=== PATIENT | male | born 1970 | race Caucasian/White ===

== ENCOUNTER 2022-08-25 16:26 | Inpatient (IN) ==
[2022-08-25] MEDS ORDERED: SODIUM CHLORIDE 0.9% 1000ML 1,000 ML IV ONE ×2 (16:33→20:52)
--- NOTE | 2022-08-25 16:36 | Emergency Department Note ---
Impression & Plan Hydronephrosis with ureteral calculus, Anemia, Right wrist sprain, Contracture, left shoulder, Syncope, Hypomagnesemia ED Provider Note NAME: BRUNA QUINONES AGE: 52 SEX: M : 1970 ARRIVES VIA: Ambulance INFORMANT: Patient, EMS ED PROVIDER(S): Raghavendra Joyce DO CHIEF COMPLAINT: Syncope HPI: The patient is a 52-year-old male who has a history of melanoma who presented to the emergency department for an evaluation of syncope. The patient states when he awoke this morning he was dizzy when he went to stand up he felt as though he might pass out. He did have 1 syncopal episode. He started to feel little bit better and when he got back up again he had another syncopal episode. The patient states he injured his left shoulder as well as his right wrist. He denies having any back pain. He has had no abdominal pain or chest pain. He denies having any difficulty breathing at this time. He was also noted to have a low-grade fever. He was treated with IV fluids by the prehospital personnel prior to arrival. The patient does not have any other recent traumas. He states has been compliant with his outpatient medications. He denies having any headache. He does take oral anticoagulation. The patient states the pain is wrist and shoulder worsening with any movement his arms or legs. ROS: See above HPI for pertinent positives & negatives. A total of 10 systems reviewed and were otherwise negative. PAST MEDICAL HISTORY: See Below PAST SURGICAL HISTORY: See Below FAMILY HISTORY: See Below SOCIAL HISTORY: See Below HOME MEDICATIONS: See Below ALLERGIES: See Below VITALS: See Below PHYSICAL EXAMINATION: GENERAL: Patient is awake alert in no acute distress patient is resting comfortably and showing no signs of anxiety EYES: The conjunctivae are clear. The pupils are round and reactive. EARS, NOSE, MOUTH AND THROAT: The nose is without any evidence of any deformity. Mucous membranes are moist. Tongue is midline. NECK: The neck is nontender and supple. RESPIRATORY: Normal respiratory effort is noted there is no evidence of wheezing rhonchi or rales CARDIOVASCULAR: Regular rate and rhythm noted there no murmurs rubs or gallops normal S1 normal S2. GASTROINTESTINAL: Soft and mildly distended. Specific tenderness guarding rigidity. BACK: No midline tenderness or or step-off noted range of motion in flexion extension as well as rotation no signs of muscle spasm noted MUSCULOSKELETAL/EXTREMITIES: The patient has swelling and pain with range of motion of the right wrist. There is tenderness over the dorsum of the right wrist. There is also pain with palpation over the left distal clavicle. Left shoulder left elbow and left wrist appear to be unaffected and have normal range of motion. SKIN: Pedal edema was noted bilaterally. NEUROLOGIC: Patient is awake alert and oriented x3 strength is symmetric patellar reflexes are 2+ bilaterally MEDICAL DECISION MAKING: Patient is a 52-year-old male who presented to the emergency department after having multiple syncopal episodes. The patient did not have any definite source of infection. He was found to have anemia compared to his baseline. He had vague abdominal pain but no surgical abdomen was noted on physical exam. CT of the abdomen and pelvis was also obtained. This did not appear to be consistent with a surgical abdomen but did show an obstructing ureteral calculus. I feel this does not completely explain the patient's symptoms. Given the fever and the ureteral calculus as well as the recent procedure the patient had he was treated with IV fluids and IV antibiotics. He was also treated with IV magnesium replacement. The patient states has had no black or bloody bowel moods. He was recently seen by an certified respiratory therapist. The patient had an upper and lower endoscopy but no source for his bleeding could be found. This is likely the patient's source of anemia. The patient was treated with IV fluids and on reevaluation still has significant near syncope upon standing. For this reason I discussed his case with the on-call [facility] hospitalist. They have agreed to evaluate the patient in the emergency department for further management and disposition. Triage Nursing notes reviewed. Prior medical records reviewed Vital Signs: reviewed and remarkable for tachycardia and orthostatic hypotension. Differential diagnosis: Vasovagal event, dehydration, infection, hypoglycemia, electrolyte abnormalities, cardiac sources, intracerebral event, pulmonary embolism, seizure, toxicologic, neurologic, as well as other pathologies. ER treatment provided: See below Diagnostics interpreted by me: ECG: EKG was obtained in the emergency department. My interpretation is sinus tachycardia 126 bpm. There is no ectopy. There is no acute ST segment abnormalities noted. This was compared to a tracing from June 27, 2022. There is an increase in the rate otherwise no changes were noted. Cardiac Monitoring: An order was placed for continuous cardiac monitoring. The monitor shows a rate of 111 bpm with sinus tachycardia. Laboratory studies: As stated above and show below. Imaging studies: See below Consultation(s): I discussed this case with Dr Baird Past Med/Surg History Medical History Hypertension Melanoma Surgical History Hx of knee surgery Family History Other Family history non-contributory Social History Smoking Status: Never smoker Preferred Language: Upper Sorbian Feels Safe at Home: Yes Allergies Allergies Allergy/AdvReac Type Severity Reaction Status Date / Time No Known Allergies Allergy Unverified 04/30/21 21:58 Home Meds Home Medications Medication Instructions Recorded Confirmed Keytruda 0 mg IV .[id number] 04/30/21 04/30/21 amlodipine 2.5 mg-benazepril 10 mg 1 cap PO DAILY 04/30/21 04/30/21 capsule Results & Data (ED) Vital Signs Vital Signs - 24 hr 08/25/22 16:32 08/25/22 16:44 08/25/22 16:44 Temperature 37.7 C H 37.7 C H Temperature Source Oral Oral Pulse Rate 126 H Pulse Rate [Right Finger] 124 H Pulse Rhythm [Right Finger] Respiratory Rate 16 16 Respiratory Effort / Characteristics Respiratory Depth Blood Pressure 175/117 H Blood Pressure [Right Arm] 175/117 H Blood Pressure Mean 136 Blood Pressure Mean [Right Arm] 136 Pulse Oximetry 98 97 97 Oxygen Delivery Method Room Air Room Air Room Air Sepsis Recent Fever Within 48 Hours Yes Sepsis New/Unexplained Change in Mental Status Yes Sepsis Action Taken by Nursing Physician Notified Pulse Oximetry Post Tiitration 08/25/22 16:44 08/25/22 16:54 08/25/22 17:13 Temperature Temperature Source Pulse Rate Pulse Rate [Right Finger] 120 H 122 H Pulse Rhythm [Right Finger] Regular Respiratory Rate Respiratory Effort / Characteristics Respiratory Depth Blood Pressure Blood Pressure [Right Arm] 175/117 H Blood Pressure Mean Blood Pressure Mean [Right Arm] 136 Pulse Oximetry 97 97 Oxygen Delivery Method Room Air Room Air Room Air Sepsis Recent Fever Within 48 Hours Sepsis New/Unexplained Change in Mental Status Sepsis Action Taken by Nursing Pulse Oximetry Post Tiitration 97 08/25/22 17:28 08/25/22 18:47 08/25/22 19:24 Temperature Temperature Source Pulse Rate Pulse Rate [Right Finger] 119 H 122 H 111 H Pulse Rhythm [Right Finger] Regular Respiratory Rate 20 18 16 Respiratory Effort / Characteristics Non-Labored Respiratory Depth Normal Blood Pressure Blood Pressure [Right Arm] 158/94 H 156/84 H Blood Pressure Mean Blood Pressure Mean [Right Arm] 115 108 Pulse Oximetry 98 98 96 Oxygen Delivery Method Room Air Room Air Room Air Sepsis Recent Fever Within 48 Hours Sepsis New/Unexplained Change in Mental Status Sepsis Action Taken by Nursing Pulse Oximetry Post Tiitration 08/25/22 20:07 Temperature Temperature Source Pulse Rate Pulse Rate [Right Finger] 111 H Pulse Rhythm [Right Finger] Respiratory Rate 18 Respiratory Effort / Characteristics Respiratory Depth Blood Pressure Blood Pressure [Right Arm] 137/89 Blood Pressure Mean Blood Pressure Mean [Right Arm] 105 Pulse Oximetry 95 Oxygen Delivery Method Room Air Sepsis Recent Fever Within 48 Hours Sepsis New/Unexplained Change in Mental Status Sepsis Action Taken by Nursing Pulse Oximetry Post Tiitration Home Medications Current Medication List: was personally reviewed by me Laboratory Data Attestation: I reviewed the patient's lab results. Result diagrams: 08/25/22 16:35 08/25/22 16:35 Lab Results 08/25/22 08/25/22 08/25/22 Range/Units 16:35 16:35 16:35 WBC 11.30 H (4.8-10.8) K/ul RBC 3.44 L (4.63-6.08) M/uL Hgb 10.7 L (14.0-18.0) g/dl Hct 32.3 L (40.1-51.0) % MCV 93.9 (80.0-100.0) fL MCH 31.1 (25.0-34.0) pg MCHC 33.1 (32.0-36.0) g/dL RDW Std Deviation 46.8 H (36.4-46.3) fL RDW Coeff of Hieu 13.7 (11.5-14.5) % Plt Count 274 (130-400) K/uL MPV 10.5 (9.4-12.4) fL Immature Gran % (Auto) 0.4 % Neut % (Auto) 84.8 % Lymph % (Auto) 7.3 % [place] % (Auto) 6.9 % Eos % (Auto) 0.3 % Baso % (Auto) 0.3 % Neut # (Auto) 9.59 H (1.4-6.5) K/uL Lymph # (Auto) 0.82 L (1.2-3.4) K/uL [place] # (Auto) 0.78 (0.24-0.82) K/uL Eos # (Auto) 0.03 (0-0.50) K/uL Baso # (Auto) 0.03 (0-0.2) K/uL Immature Gran # (Auto) 0.05 H (0.00-0.02) K/uL PT 10.9 (9.0-12.0) Seconds INR 1.0 (0.9-1.1) APTT 26.1 (21.0-31.0) Seconds PTT Ratio 0.9 VBG pH (7.36-7.41) VBG pCO2 (38-50) mmHg VBG pO2 mmHg VBG HCO3 mmol/L VBG O2 Saturation % VBG Base Excess mEq/L Sodium 136 (136-145) mmol/L Potassium 3.8 (3.5-5.1) mmol/L Chloride 106 (98-107) mmol/L Carbon Dioxide 20 L (21-32) mmol/L Anion Gap 10 (3-11) BUN 12 (6-23) mg/dl Creatinine 1.40 (0.6-1.4) mg/dl Est Cr Clr Drug Dosing 85.3 ml/min Est GFR ( Amer) 66.0 ml/min Est GFR (Non-Af Amer) 57.0 ml/min BUN/Creatinine Ratio 8.6 L (10-20) Glucose 111 H (70-99(Fasting)) mg/dl Lactate (0.4-2.0) mmol/L Calcium 8.5 (8.5-10.1) mg/dl Magnesium 1.4 L (1.7-2.4) mg/dl Total Bilirubin 0.7 (0.2-1.0) mg/dl Direct Bilirubin 0.2 (0-0.2) mg/dl AST 13 (13-39) U/L ALT 10 (7-52) U/L Alkaline Phosphatase 72 (34-104) U/L Troponin I High Sens 7.1 (0-20) pg/ml Total Protein 7.3 (6.0-8.3) gm/dl Albumin 3.3 L (3.4-5.0) gm/dl Procalcitonin (0-0.5) ng/ml Urine Color Urine Appearance (Clear) Urine pH (4.5-7.5) Ur Specific [place] (1.000-1.030) Urine Protein (Negative) Urine Glucose (UA) (Negative) Urine Ketones (Negative) Urine Blood (Negative) Urine Nitrite (Negative) Urine Bilirubin (Negative) Urine Urobilinogen (Negative) Ur Leukocyte Esterase (Negative) Urine WBC (Auto) (0-5) /hpf Urine RBC (Auto) (0-4) /hpf U Hyaline Cast (Auto) (0-5) /lpf U Epithel Cells (Auto) (0-5) /lpf Urine Bacteria (Auto) (Negative) SARS-CoV-2, RNA, NAAT (NEGATIVE) 08/25/22 08/25/22 08/25/22 Range/Units 16:35 16:35 16:35 WBC (4.8-10.8) K/ul RBC (4.63-6.08) M/uL Hgb (14.0-18.0) g/dl Hct (40.1-51.0) % MCV (80.0-100.0) fL MCH (25.0-34.0) pg MCHC (32.0-36.0) g/dL RDW Std Deviation (36.4-46.3) fL RDW Coeff of Hieu (11.5-14.5) % Plt Count (130-400) K/uL MPV (9.4-12.4) fL Immature Gran % (Auto) % Neut % (Auto) % Lymph % (Auto) % [place] % (Auto) % Eos % (Auto) % Baso % (Auto) % Neut # (Auto) (1.4-6.5) K/uL Lymph # (Auto) (1.2-3.4) K/uL [place] # (Auto) (0.24-0.82) K/uL Eos # (Auto) (0-0.50) K/uL Baso # (Auto) (0-0.2) K/uL Immature Gran # (Auto) (0.00-0.02) K/uL PT (9.0-12.0) Seconds INR (0.9-1.1) APTT (21.0-31.0) Seconds PTT Ratio VBG pH (7.36-7.41) VBG pCO2 (38-50) mmHg VBG pO2 mmHg VBG HCO3 mmol/L VBG O2 Saturation % VBG Base Excess mEq/L Sodium (136-145) mmol/L Potassium (3.5-5.1) mmol/L Chloride (98-107) mmol/L Carbon Dioxide (21-32) mmol/L Anion Gap (3-11) BUN (6-23) mg/dl Creatinine (0.6-1.4) mg/dl Est Cr Clr Drug Dosing ml/min Est GFR ( Amer) ml/min Est GFR (Non-Af Amer) ml/min BUN/Creatinine Ratio (10-20) Glucose (70-99(Fasting)) mg/dl Lactate 1.6 (0.4-2.0) mmol/L Calcium (8.5-10.1) mg/dl Magnesium (1.7-2.4) mg/dl Total Bilirubin (0.2-1.0) mg/dl Direct Bilirubin (0-0.2) mg/dl AST (13-39) U/L ALT (7-52) U/L Alkaline Phosphatase (34-104) U/L Troponin I High Sens (0-20) pg/ml Total Protein (6.0-8.3) gm/dl Albumin (3.4-5.0) gm/dl Procalcitonin < 0.05 (0-0.5) ng/ml Urine Color Urine Appearance (Clear) Urine pH (4.5-7.5) Ur Specific [place] (1.000-1.030) Urine Protein (Negative) Urine Glucose (UA) (Negative) Urine Ketones (Negative) Urine Blood (Negative) Urine Nitrite (Negative) Urine Bilirubin (Negative) Urine Urobilinogen (Negative) Ur Leukocyte Esterase (Negative) Urine WBC (Auto) (0-5) /hpf Urine RBC (Auto) (0-4) /hpf U Hyaline Cast (Auto) (0-5) /lpf U Epithel Cells (Auto) (0-5) /lpf Urine Bacteria (Auto) (Negative) SARS-CoV-2, RNA, NAAT NEGATIVE (NEGATIVE) 08/25/22 08/25/22 Range/Units 17:52 19:10 WBC (4.8-10.8) K/ul RBC (4.63-6.08) M/uL Hgb (14.0-18.0) g/dl Hct (40.1-51.0) % MCV (80.0-100.0) fL MCH (25.0-34.0) pg MCHC (32.0-36.0) g/dL RDW Std Deviation (36.4-46.3) fL RDW Coeff of Hieu (11.5-14.5) % Plt Count (130-400) K/uL MPV (9.4-12.4) fL Immature Gran % (Auto) % Neut % (Auto) % Lymph % (Auto) % [place] % (Auto) % Eos % (Auto) % Baso % (Auto) % Neut # (Auto) (1.4-6.5) K/uL Lymph # (Auto) (1.2-3.4) K/uL [place] # (Auto) (0.24-0.82) K/uL Eos # (Auto) (0-0.50) K/uL Baso # (Auto) (0-0.2) K/uL Immature Gran # (Auto) (0.00-0.02) K/uL PT (9.0-12.0) Seconds INR (0.9-1.1) APTT (21.0-31.0) Seconds PTT Ratio VBG pH 7.44 H (7.36-7.41) VBG pCO2 35 L (38-50) mmHg VBG pO2 33 mmHg VBG HCO3 24 mmol/L VBG O2 Saturation < 60.0 % VBG Base Excess 0.1 mEq/L Sodium (136-145) mmol/L Potassium (3.5-5.1) mmol/L Chloride (98-107) mmol/L Carbon Dioxide (21-32) mmol/L Anion Gap (3-11) BUN (6-23) mg/dl Creatinine (0.6-1.4) mg/dl Est Cr Clr Drug Dosing ml/min Est GFR ( Amer) ml/min Est GFR (Non-Af Amer) ml/min BUN/Creatinine Ratio (10-20) Glucose (70-99(Fasting)) mg/dl Lactate (0.4-2.0) mmol/L Calcium (8.5-10.1) mg/dl Magnesium (1.7-2.4) mg/dl Total Bilirubin (0.2-1.0) mg/dl Direct Bilirubin (0-0.2) mg/dl AST (13-39) U/L ALT (7-52) U/L Alkaline Phosphatase (34-104) U/L Troponin I High Sens (0-20) pg/ml Total Protein (6.0-8.3) gm/dl Albumin (3.4-5.0) gm/dl Procalcitonin (0-0.5) ng/ml Urine Color Yellow Urine Appearance Clear (Clear) Urine pH 6.0 (4.5-7.5) Ur Specific [place] 1.011 (1.000-1.030) Urine Protein Negative (Negative) Urine Glucose (UA) Negative (Negative) Urine Ketones Trace H (Negative) Urine Blood 3+ H (Negative) Urine Nitrite Negative (Negative) Urine Bilirubin Negative (Negative) Urine Urobilinogen Negative (Negative) Ur Leukocyte Esterase Negative (Negative) Urine WBC (Auto) 1-5 (0-5) /hpf Urine RBC (Auto) >30 H (0-4) /hpf U Hyaline Cast (Auto) 1-5 (0-5) /lpf U Epithel Cells (Auto) 5-10 H (0-5) /lpf Urine Bacteria (Auto) Negative (Negative) SARS-CoV-2, RNA, NAAT (NEGATIVE) Administered Medications Discontinued Medications Acetaminophen (Acetaminophen 500 Mg Tab) 1,000 mg PO NOW STA Stop: 08/25/22 17:20 Last Admin: 08/25/22 17:23 Dose: 1,000 mg Documented By: MES Sodium Chloride (Nss 1000ml) 1,000 mls @ 999 mls/hr IV .Q1H1M ONE Stop: 08/25/22 17:33 Last Infusion: 08/25/22 18:07 Dose: 0 mls/hr Documented By: Admin: 08/25/22 16:47 Dose: 999 mls/hr Documented By: MES Magnesium Sulfate/Dextrose (Magnesium Sulfate / D5w) 1 gm in 100 mls @ 100 mls/hr IV Q1H JESSICA Stop: 08/25/22 19:18 Last Infusion: 08/25/22 20:28 Dose: 0 mls/hr Documented By: Admin: 08/25/22 19:22 Dose: 100 mls/hr Documented By: Infusion: 08/25/22 19:22 Dose: 0 mls/hr Documented By: Admin: 08/25/22 18:19 Dose: 100 mls/hr Documented By: DARIELA Imaging Data Radiologist's Impression: Abdomen/Pelvis CT 08/25/22 16:33 CT abd pelvis wo con CLINICAL HISTORY: fall, right-sided pain TECHNIQUE: Helical axial images of the abdomen and pelvis were obtained. Automated dose lowering techniques and/or adjustment according to patient size were utilized for this exam. This exam was performed without intravenous contrast. CT DOSE: 3458.00 mGy.cm COMPARISON: Comparison is made to CT abdomen pelvis 06/27/2022 FINDINGS: Lower chest: Bibasilar atelectasis versus scarring is seen. Liver: Unremarkable. No focal lesions are seen. Gallbladder and biliary tree: No calcified gallstones. Normal caliber wall. No intra- or extrahepatic biliary ductal dilation. Pancreas: Unremarkable, no focal lesions. Spleen: Unremarkable. Adrenals: A lipid rich adenoma is seen on the right. Kidneys and ureters: Perinephric stranding is noted bilaterally. There is a stone in the right proximal ureter measuring 4 mm. There is minimal hydrone phrosis and hydroureter. Bladder: Unremarkable. Reproductive organs: Unremarkable. Bowel: Unremarkable appearance of the bowel. The appendix is normal. Lymph nodes Retroperitoneal: Unremarkable. Pelvic: Unremarkable. Mesenteric: Unremarkable. Peritoneum: Normal. Vessels: Atherosclerotic calcifications are seen. Abdominal wall: Redemonstration of a soft tissue nodule in the left buttock, unchanged. Bones: Degenerative changes in the visualized spine. IMPRESSION: 1. No acute traumatic abnormalities. No acute fractures. 2. Right obstructive stone in the proximal ureter. 3. Unchanged appearance of left buttock soft tissue nodule. ACT 112: Negative or not required by law. Electronically signed by: Ilan Gray M.D. 08/25/2022 6:[address] 08/25/22 16:33 CT cervical spine wo con CLINICAL HISTORY: fall TECHNIQUE: Multidetector row helical CT of the cervical spine was performed without administration of intravenous contrast. Coronal and sagittal re formations were obtained. Automated dose lowering techniques and/or adjustment according to patient size were utilized for this exam. Comparison: None available at the time of this dictation. FINDINGS: No acute fractures or subluxations are identified. Degenerative changes are seen in the visualized spine. The alignment is normal. Soft tissues are unremarkable. IMPRESSION: No evidence of acute bony injury. ACT 112: Negative or not required by law. Electronically signed by: Ilan Gray M.D. 08/25/2022 6:40 PM Chest X-Ray 08/25/22 16:33 XR chest 1V portable CLINICAL HISTORY: Sepsis TECHNIQUE: Single frontal radiograph of the chest was obtained. Comparison: Comparison is made to chest radiograph 06/06/2018 FINDINGS: No lines and tubes are seen. Cardiomegaly is noted. The lungs are clear. No evidence of pleural effusion or pneumothorax. IMPRESSION: No acute abnormalities and in particular no evidence of pneumonia. ACT 112: Negative or not required by law. Electronically signed by: Ilan Gray M.D. 08/25/2022 5:[address] 08/25/22 16:33 CT head/brain wo con CLINICAL HISTORY: fall Technique: Contiguous axial CT images of the head were acquired from the base of the skull to the vertex without intravenous contrast administration. Images were viewed in brain, subdural and bone windows. Automated dose lowering techniques and/or adjustment according to patient size were utilized for this exam. Comparison: None available at the time of this dictation. Findings: The ventricles, basal cisterns, and cerebral sulci are normal. There is no acute intracranial hemorrhage or evidence of acute territorial infarction. Neither mass effect, shift of the midline structures, nor abnormal extra-axial fluid collections are shown. Imaged portions of the paranasal sinuses and mastoid air cells are clear. The orbits appear normal. There are no acute fractures of the calvaria or scalp swelling. Impression: No acute intracranial hemorrhage, no evidence of acute territorial infarction or other acute intracranial disease process. ACT 112: Negative or not required by law. Electronically signed by: Ilan Gray M.D. 08/25/2022 7:14 PM Shoulder X-Ray 08/25/22 16:33 XR shoulder LT min 2V routine CLINICAL HISTORY: fall TECHNIQUE: 3 views of the left shoulder were obtained. Comparison: None available at the time of this dictation. FINDINGS: There is no evidence of an acute fracture. Joint spaces are well-preserved. The overlying soft tissues are unremarkable. Left axillary clips are seen. IMPRESSION: No evidence of acute osseous injury. ACT 112: Negative or not required by law. Electronically signed by: Ilan Gray M.D. 08/25/2022 5:25 PM Wrist X-Ray 08/25/22 16:33 RIGHT WRIST 4 VIEWS CLINICAL HISTORY: Fall with right wrist injury. FINDINGS: 4 views of the right wrist are correlated with radiographs of the right hand dated 12/18/2019. The skeletal structures are well-mineralized. There is no radiographic evidence of acute fracture. Mild degenerative narrowing is seen at the radiocarpal articulation. There are 6 mm of widening between the scaphoid and lunate, suggesting chronic ligamentous injury. There is minimal proximal migration of the capitate. Cystic degenerative change is seen throughout the carpal bones, greatest in the triquetrum. Arthritic changes seen throughout the wrist. There is chronic post deformity of the fifth proximal phalanx. Soft tissue edema is noted on the wrist. IMPRESSION: 1. Soft tissue swelling with no acute fracture identified. If there is clinical concern for occult fracture consider short-term radiographic follow-up. 2. Widening between the scaphoid and lunate suggests chronic ligamentous injury. There is mild proximal migration of the capitate. Nonemergent orthopedic follow- up is recommended. Electronically signed by: Arturo Montaño M.D. 08/25/2022 5:32 PM Discharge Plan Visit Data Chief Complaint: Syncope Stated Complaint: SYNCOPE, FALLS ED Provider: Raghavendra Joyce Discharge Problem: Hydronephrosis with ureteral calculus, Anemia, Right wrist sprain, Contracture, left shoulder, Syncope, Hypomagnesemia Patient Disposition: Being Evaluated by Hospitalist Forms Stand Alone Forms: [employer] Prescriptions Prescriptions: No Action amlodipine-benazepril 2.5-10 mg capsule 1 cap PO DAILY Keytruda 0 mg IV .[id number] Referrals Referrals: Jayson Parks MD [Primary Care Provider] -
[2022-08-25 17:03] LABS: Basophils # (auto) 0.03 K/uL (0-0.2); Basophils % (auto) 0.3 %; Eosinophils # (auto) 0.03 K/uL (0-0.50); Eosinophils % (auto) 0.3 %; Hematocrit (blood only) 32.3 % (40.1-51.0); Hemoglobin 10.7 g/dl (14.0-18.0); Immature Granulocytes # (auto) 0.05 K/uL (0.00-0.02); Immature Granulocytes % (auto) 0.4 %; Lymphocytes # (auto) 0.82 K/uL (1.2-3.4); Lymphocytes % (auto) 7.3 %; Mean Corpuscular Hemoglobin 31.1 pg (25.0-34.0); Mean Corpuscular Hgb Conc 33.1 g/dL (32.0-36.0); Mean Corpuscular Volume 93.9 fL (80.0-100.0); Mean Platelet Volume 10.5 fL (9.4-12.4); Monocytes # (auto) 0.78 K/uL (0.24-0.82); Monocytes % (auto) 6.9 %; Neutrophils # (auto) 9.59 K/uL (1.4-6.5); Neutrophils % (auto) 84.8 %; Platelet Count 274 K/uL (130-400); RDW Coefficient of Variation 13.7 % (11.5-14.5); RDW Standard Deviation 46.8 fL (36.4-46.3); Red Blood Count 3.44 M/uL (4.63-6.08)
[2022-08-25 17:16] LABS: Albumin Level 3.3 gm/dl (3.4-5.0); BUN Creatinine Ratio 8.6 (10-20); Bilirubin Direct 0.2 mg/dl (0-0.2); Bilirubin,Total 0.7 mg/dl (0.2-1.0); Calcium 8.5 mg/dl (8.5-10.1); Creatinine Clr Calc Pharmacy 85.3 ml/min; Magnesium 1.4 mg/dl (1.7-2.4); Potassium 3.8 mmol/L (3.5-5.1); Total Protein 7.3 gm/dl (6.0-8.3)
[2022-08-25 17:17] LABS: Partial Thromboplastin Ratio 0.9; Partial Thromboplastin Time 26.1 Seconds (21.0-31.0); Prothrombin Time 10.9 Seconds (9.0-12.0)
[2022-08-25 17:19] LABS: Troponin I High Sensitivity 7.1 pg/ml (0-20)
[2022-08-25] MEDS ORDERED: ACETAMINOPHEN 500 MG TAB PO STA (17:19)
--- NOTE | 2022-08-25 17:27 | XRay Report ---
XR shoulder LT min 2V routine CLINICAL HISTORY: fall TECHNIQUE: 3 views of the left shoulder were obtained. Comparison: None available at the time of this dictation. FINDINGS: There is no evidence of an acute fracture. Joint spaces are well-preserved. The overlying soft tissue s are unremarkable. Left axillary clips are seen. IMPRESSION: No evidence of acute osseous injury. ACT 112: Negative or not required by law. Electronically signed by: Ilan Gray M.D. 08/25/2022 5:25 PM
--- NOTE | 2022-08-25 17:28 | XRay Report ---
XR chest 1V portable CLINICAL HISTORY: Sepsis TECHNIQUE: Single frontal radiograph of the chest was obtained. Comparison: Comparison is made to chest radiograph 06/06/2018 FINDINGS: No lines and tubes are seen. Cardiomegaly is noted. The lungs are clear. No evidence of pleural effus ion or pneumothorax. IMPRESSION: No acute abnormalities and in particular no evidence of pneumonia. ACT 112: Negative or not required by law. Electronically signed by: Ilan Gray M.D. 08/25/2022 5:27 PM
--- NOTE | 2022-08-25 17:35 | XRay Report ---
RIGHT WRIST 4 VIEWS CLINICAL HISTORY: Fall with right wrist injury. FINDINGS: 4 views of the right wrist are correlated with radiographs of the right hand dated 0. The skeletal structures are well-mineralized. There is no radiographic evidence of acute fracture. Mild degenerative narrowing is seen at the radiocarpal articulation. There are 6 mm of widening betw een the scaphoid and lunate, suggesting chronic ligamentous injury. There is minimal proximal migrati on of the capitate. Cystic degenerative change is seen throughout the carpal bones, greatest in the t riquetrum. Arthritic changes seen throughout the wrist. There is chronic post deformity of the fifth proximal phalanx. Soft tissue edema is noted on the wrist. IMPRESSION: 1. Soft tissue swelling with no acute fracture identified. If there is clinical concern for occult fr acture consider short-term radiographic follow-up. 2. Widening between the scaphoid and lunate suggests chronic ligamentous injury. There is mild proxim al migration of the capitate. Nonemergent orthopedic follow-up is recommended. Electronically signed by: Arturo Montaño M.D. 08/25/2022 5:32 PM
[2022-08-25 18:00] LABS: Base Excess VBG 0.1 mEq/L; HCO3 VBG 24 mmol/L; Oxygen Saturation VBG < 60.0 %; PCO2 VBG 35 mmHg (38-50); PO2 VBG 33 mmHg; pH VBG 7.44 (7.36-7.41)
--- NOTE | 2022-08-25 18:15 | CT Scan Report ---
CT abd pelvis wo con CLINICAL HISTORY: fall, right-sided pain TECHNIQUE: Helical axial images of the abdomen and pelvis were obtained. Automated dose lowering tech niques and/or adjustment according to patient size were utilized for this exam. This exam was perfor med without intravenous contrast. CT DOSE: 3458.00 mGy.cm COMPARISON: Comparison is made to CT abdomen pelvis 06/27/2022 FINDINGS: Lower chest: Bibasilar atelectasis versus scarring is seen. Liver: Unremarkable. No focal lesions are seen. Gallbladder and biliary tree: No calcified gallstones. Normal caliber wall. No intra- or extrahepatic biliary ductal dilation. Pancreas: Unremarkable, no focal lesions. Spleen: Unremarkable. Adrenals: A lipid rich adenoma is seen on the right. Kidneys and ureters: Perinephric stranding is noted bilaterally. There is a stone in the right proxim al ureter measuring 4 mm. There is minimal hydronephrosis and hydroureter. Bladder: Unremarkable. Reproductive organs: Unremarkable. Bowel: Unremarkable appearance of the bowel. The appendix is normal. Lymph nodes Retroperitoneal: Unremarkable. Pelvic: Unremarkable. Mesenteric: Unremarkable. Peritoneum: Normal. Vessels: Atherosclerotic calcifications are seen. Abdominal wall: Redemonstration of a soft tissue nodule in the left buttock, unchanged. Bones: Degenerative changes in the visualized spine. IMPRESSION: 1. No acute traumatic abnormalities. No acute fractures. 2. Right obstructive stone in the proximal ureter. 3. Unchanged appearance of left buttock soft tissue nodule. ACT 112: Negative or not required by law. Electronically signed by: Ilan Gray M.D. 08/25/2022 6:13 PM
[2022-08-25] MEDS: MAGNESIUM SULFATE / D5W 1 GM/100 ML BAG IV SCH ×2 (18:19→19:22)
--- NOTE | 2022-08-25 18:42 | CT Scan Report ---
CT cervical spine wo con CLINICAL HISTORY: fall TECHNIQUE: Multidetector row helical CT of the cervical spine was performed without administration of intravenous contrast. Coronal and sagittal reformations were obtained. Automated dose lowering techn iques and/or adjustment according to patient size were utilized for this exam. Comparison: None available at the time of this dictation. FINDINGS: No acute fractures or subluxations are identified. Degenerative changes are seen in the visualized sp ine. The alignment is normal. Soft tissues are unremarkable. IMPRESSION: No evidence of acute bony injury. ACT 112: Negative or not required by law. Electronically signed by: Ilan Gray M.D. 08/25/2022 6:40 PM
--- NOTE | 2022-08-25 19:15 | CT Scan Report ---
CT head/brain wo con CLINICAL HISTORY: fall Technique: Contiguous axial CT images of the head were acquired from the base of the skull to the [place] without intravenous contrast administration. Images were viewed in brain, subdural and bone [facility]. Automated dose lowering techniques and/or adjustment according to patient size were utilized for this exam. Comparison: None available at the time of this dictation. Findings: The ventricles, basal cisterns, and cerebral sulci are normal. There is no acute intracranial hemorrh age or evidence of acute territorial infarction. Neither mass effect, shift of the midline structures , nor abnormal extra-axial fluid collections are shown. Imaged portions of the paranasal sinuses and mastoid air cells are clear. The orbits appear normal. There are no acute fractures of the calvaria or scalp swelling. Impression: No acute intracranial hemorrhage, no evidence of acute territorial infarction or other acute intracra nial disease process. ACT 112: Negative or not required by law. Electronically signed by: Ilan Gray M.D. 08/25/2022 7:14 PM
[2022-08-25 19:53] LABS: Appearance Urine Clear (Clear); Bacteria Urine Automated Negative (Negative); Bilirubin Urine Negative (Negative); Blood Urine 3+ (Negative); Color Urine Yellow; Glucose Urine UA Negative (Negative); Ketones Urine Trace (Negative); Leukocyte Esterase Urine Negative (Negative); Nitrite Urine Negative (Negative); Protein Urine Negative (Negative); RBC Urine Automated >30 /hpf (0-4); Specific Gravity Urine 1.011 (1.000-1.030); Urobilinogen Urine Negative (Negative)
[2022-08-25] MEDS ORDERED: PIPERACILLIN/TAZOBACTAM 4.5 GM/120 ML BAG IV ONE (20:51)
[2022-08-25] MEDS ORDERED: APIXABAN 5 MG TABLET PO ONE (22:52)
--- NOTE | 2022-08-26 01:23 | History and Physical Report ---
DATE OF ADMISSION: 08/25/2022 CHIEF COMPLAINT: Syncope. HISTORY OF PRESENT ILLNESS: This is a 52-year-old male with past medical history significant for malignant metastatic melanoma, recurrence, follows with [facility], currently on encorafenib and binimetinib; recently DVT and PE, on Eliquis; lately developing vitiliginous patches, history of hypertension, gout, hypothyroidism, hyperlipidemia, chronic kidney disease, who had colonoscopy yesterday presents with syncopal episode. The patient says he had a colonoscopy yesterday was okay and today at 1 a.m. when he got up, he felt a little dizzy and he passed out fell on his 4 extremities. He says he did not pass out for a long time. When he woke up, he was little confused for a for moment, but then was back to normal, then he went to his bathroom and was getting up from the commode, again felt dizzy and fell on the fell on the left shoulder and thinks hit hed on left side, had some soreness in the left shoulder, has a bruise on the left side of the belly. He called his sister and brought him to the hospital. In the hospital, he was given fluids and whenever he is trying to get up, he has some dizziness. Has pain n the right wrist but x-rays, no acute fracture. CT of abdomen and pelvis showing right obstructive stone in the proximal ureter 4 mm. The patient does not have any obvious symptoms for that. Currently, resting comfortably, hemodynamically stable. Denies any headaches. No blurred visions, no runny nose, no sore throat. He has occasional cough from his lung lesions. Currently, denies any chest pain, no shortness of breath, no nausea, no abdominal pain. The patient states he has normal bowel and bladder movements. Before all this happened, he was ambulating fine and climbing steps okay. ALLERGIES: No known drug allergies. PAST MEDICAL HISTORY: As mentioned above. PAST SURGICAL HISTORY: Knee arthroscopy, tonsillectomy, vasectomy. MEDICATIONS: The patient is on amlodipine/benazepril 5/10 mg daily, Eliquis 5 mg p.o. b.i.d., hydrochlorothiazide 25 mg p.o. daily p.r.n. for hypertension. The patient is currently on Mektovi and encorafenib for his melanoma, levothyroxine 200 mcg p.o. daily, prednisone 10 mg p.o. daily. FAMILY HISTORY: Significant for mother has asthma. Aunt has colon cancer. Uncle has diabetes. Maternal grandfather, stroke. SOCIAL HISTORY: Single, no smoking. Alcohol says currently drinking 1-2 beers every other day. No drug use. REVIEW OF SYSTEMS: As per HPI. Rest of the review of systems is negative. PHYSICAL EXAMINATION: GENERAL: The patient is obese, not in acute distress. VITAL SIGNS: Temperature 37.7, pulse 108, respiratory rate 18, blood pressure 130/95, oxygen 95% on room air. HEENT: Pupils equal, round and reactive to light. Oral mucosa moist. NECK: No JVD, no neck masses. CARDIOVASCULAR: S1 and S2 heard. Regular rate and rhythm. No murmur, no gallop. RESPIRATORY SYSTEM: Normal AP diameter. No accessory muscle use. No wheezing, no crackles. ABDOMEN: Soft, bowel sounds present. Two small bruises seen on the left side of the abdomen. No distention. No guarding. CENTRAL NERVOUS SYSTEM: Cranial nerves II-XII grossly intact, nonfocal. EXTREMITIES: Mild pedal edema, no erythema seen. LABORATORY DATA: WBC 11.3, hemoglobin 10.7, hematocrit 32.3, platelets 274. PT 10.9, INR 1, APTT 26.1. Venous blood gas, pH of 7.44, pCO2 of 35, pO2 33, bicarbonate 24. Sodium 136, potassium 3.8, chloride 106, bicarbonate 20, BUN 12, creatinine 1.4, serum glucose 111. Lactate 1.6, calcium 8.5, magnesium 1.4, total bilirubin 0.7, direct bilirubin 0.2, AST 13, ALT 10, alkaline phosphatase 72. Troponin I high sensitivity 7.1. Procalcitonin less than 0.05. Urinalysis negative. SARS-CoV-2 rapid test negative. IMAGING DATA: Right wrist x-ray, soft tissue swelling with no acute fracture identified. If there is clinical evidence of needs follow up. Finding between the scaphoid and lunate suggests chronic ligamentous injury. There is mild proximal migration of the capitate. Nonemergency orthopedic followup is recommended. CT of the head, no acute findings. Chest x-ray, no acute findings. Cervical spine CT, no acute findings. CT of abdomen and pelvis without contrast shows no acute traumatic abnormalities. No acute fractures. There is stone in the right proximal ureter measuring 4 mm. Minimal hydronephrosis and hydroureter. EKG: Sinus tachycardia at a rate of 126, no acute ST changes seen. ASSESSMENT AND PLAN: This is a 52-year-old male who presents with syncope. 1. Syncope: Has colonoscopy yesterday. We will monitor him in tele floor. Repeat EKGs. Repeat labs in the a.m., echocardiogram and consult cardiology in am. 2. Hypomagnesemia , replaced. 3. Right kidney stone: Consult Urology. Currently, the patient is asymptomatic. Getting fluids. 4. History of metastatic melanoma: Follow with [facility]. Continue his current chemo. 5. History of hypertension: Continue his amlodipine/benazepril. Monitor the blood pressure. 6. History of hypothyroidism: Continue Synthroid. We will follow TSH levels. 7. History of Deep venous thrombosis and pulmonary embolism: On Eliquis. 8. Deep venous thrombosis prophylaxis: On Eliquis. DISPOSITION: Closely monitor in tele floor. Level 1 full code. Job ID: [id number] [facility]
[2022-08-26] MEDS ORDERED: ACETAMINOPHEN 325 MG TAB ONE (01:26)
[2022-08-26] MEDS ORDERED: NITROGLYCERIN SL 0.4 MG/TAB TAB SL PRN (02:01)
[2022-08-26] MEDS: SODIUM CHLORIDE 0.9% 1000ML 1,000 ML IV SCH ×2 (03:33→12:47)
[2022-08-26] MEDS: LEVOTHYROXINE SODIUM 200 MCG TABLET PO SCH (05:30)
--- NOTE | 2022-08-26 05:56 | Urology Consultation ---
Date of Consultation August 26, 2022 Assessment & Plan (1) Hydronephrosis with ureteral calculus: The patient has been admitted on the hospitalist service for further evaluation of his syncopal episode. Urology has been asked to see for nephrolithiasis. We recommend proceeding as follows: At the present time the patient does not have any fevers. He does not have any evidence of infection on urinalysis. He only has a minimal elevation of his white blood cell count at 11.3. His renal function is normal. It appears as though this kidney stone has been identified incidentally and the patient only has slight hydronephrosis noted on CT scan, therefore emergent urologic procedure is not required Consideration can be given to initiating Flomax to expel his kidney stone, however we will need to make sure that this is safe from the perspective of his his syncopal episode prior to doing so Patient remains asymptomatic from regards to his kidney stone this can be followed up as an outpatient History of Present Illness Reason for Consultation: Nephrolithiasis Attending Physician: Olive Rodriguez MD History of Present Illness This is a 52-year-old male who presented to the emergency department secondary to evaluation of syncope. Patient did report some dizziness/lightheadedness and reported feeling that he felt like he might pass out. Patient said he was sitting in a chair when he passed out. Shortly thereafter he went to the restroom to have a bowel movement. After having a bowel movement he stood up an d was washing his hands when he had another syncopal episode. Patient says that he landed against the left side of his body injuring his left shoulder, left wrist and left lower abdomen. He notes that prior to passing out he did not have any chest pain or shortness of breath. He specifically notes that this syncopal episode did not happen while he was having a bowel movement or while he was attempting to urinate. In the emergency department patient had labs and imaging which I independently reviewed. A CBC revealed white blood cell count was 11.3. Hemoglobin and hematocrit were 10.7 and 32.3. Platelet count was normal. Coagulation studies were noted to be normal. Chemistry profile showed sodium, potassium, BUN, and creatinine were all within the normal range. Urinalysis was negative for nitrites and leukocyte esterase. There were only 1-5 white blood cells per high-power field and the specimen was negative for bacteria. A COVID test was performed and was noted to be negative. Imaging included a x-ray of his right wrist were no fractures were identified. A left shoulder was x-rayed with no evidence of fracture. CT scan of the head showed no acute intracranial hemorrha ge or infarcts. A chest x-ray showed no evidence of pneumonia. A cervical spine CT scan showed no evidence of fractures or subluxations. A CT scan of the abdomen pelvis showed no acute traumatic abnormalities or fractures. Patient was noted to have approximately 4 mm obstructive stone in the right proximal ureter resulting in minimal hydronephrosis. Urology has been asked to see the patient due to the kidney stone noted on CT scan. I did question the patient about this and he has no known history of kidney stones and was unaware that he had this current kidney stone. He does note that he has not had any dysuria, urinary frequency, or hematuria. He specifically denies any right flank or abdominal pain. He denies any nausea or vomiting. The patient notes that typically when he is at home he does not have any urinary hesitancy. He did note that since admission following his syncopal episode he did have 1 episode of urinary hesitancy when he had difficulty voiding, but he notes that this has subsided. At the time of my interview he was resting comfortably in bed and he was in no distress. Allergies Allergy/AdvReac Type Severity Reaction Status Date / Time No Known Allergies Allergy Unverified 04/30/21 21:58 Home Medications Medication Instructions Recorded Confirmed Type amlodipine 5 mg-benazepril 10 mg 1 cap PO DAILY 08/25/22 08/25/22 History capsule apixaban 5 mg tablet (Eliquis) 5 mg PO BID 08/25/22 08/25/22 History hydrochlorothiazide 25 mg tablet 25 mg PO DAILY PRN Hypertension 08/25/22 08/25/22 History levothyroxine 200 mcg tablet 200 mcg PO DAILY 08/25/22 08/25/22 History prednisone 10 mg tablet 10 mg PO DAILY 08/25/22 08/25/22 History binimetinib 15 mg tablet (Mektovi) 45 mg PO Q12H 08/26/22 08/26/22 History encorafenib 75 mg capsule 450 mg PO DAILY 08/26/22 08/26/22 History (Braftovi) Patient History Medical History Hypertension Melanoma Surgical History Hx of knee surgery Family History Other Family history non-contributory Social History Smoking Status: Never smoker Second Hand Exposure: No; Do You Dip or Chew Tobacco: No; Tobacco Cessation Education Requested by Patient: No Hx Alcohol Use: Yes Alcohol type: beer Hx Substance Use: No Preferred Language: Kazakh Communication Ability: Effective Database Administrator Required: No Beliefs That Will Affect Care: None Current Living Situation: Alone Other Information That Helps Us Care for You: Yes (stage 5 melanoma) Feels Safe at Home: Yes Safety Concerns: Feels Safe At This Time Assistive Devices: Contacts and Glasses Review of Systems Constitutional: + fever (Low-grade fever at time of admission which has resolved) and + chills Eyes: no eye pain Ear, Nose, Mouth, Throat: no ear pain Respiratory: no cough and no dyspnea Cardiovascular: + syncope; no chest pain Gastrointestinal: no abdominal pain, no nausea and no vomiting Genitourinary: + urinary hesitancy (1 episode that has resolved); no dysuria, no urinary frequency, no hematuria or no flank pain Musculoskeletal: no back pain Integumentary: no rash Neurologic: no localized weakness Physical Exam Constitutional: WD/WN, vitals as above Eyes: no conjunctival abnormality ENMT: Ears: no hearing impairment and no external ear abnormality Mouth: no oropharynx abnormality Neck: trachea midline Respiratory: normal respiratory effort, lungs clear to auscultation Cardiovascular: Rate/Rhythm: regular rate and regular rhythm Gastrointestinal (Abdomen): Abdomen is soft, nonrigid, and nondistended. Bowel sounds are present. Patient did have some pain with palpation the left lower quadrant where he has a noted ecchymosis. He notes that this is a result of his syncopal episode/fall. He does not have any pain on the right side of his abdomen with palpation. Musculoskeletal: No calf tenderness Skin: no rashes Neurologic: moves all extremities Psychiatric: A+Ox3, euthymic affect Genitourinary: no CVA tenderness Results & Data ([facility]) Vital Signs (Past 12 Hours) Vital Signs Temp Pulse Pulse Resp BP BP BP 08/26/22 01:52 102 H 08/26/22 02:08 37 C 90 18 148/102 H 08/26/22 01:15 94 H 25 H 08/26/22 01:15 145/110 H 08/26/22 01:00 96 H 23 08/26/22 01:00 163/101 H 08/26/22 00:45 97 H 24 08/26/22 00:45 152/108 H 08/26/22 00:30 98 H 22 08/26/22 00:30 140/107 H 08/26/22 00:15 99 H 22 08/26/22 00:15 139/107 H 08/26/22 00:00 99 H 21 08/26/22 00:00 134/105 H 08/25/22 23:45 99 H 17 08/25/22 23:45 147/111 H 08/25/22 23:30 149/102 H 08/25/22 23:30 101 H 21 08/25/22 23:27 100 H 21 08/25/22 23:27 139/105 H 08/25/22 23:23 155/104 H 08/25/22 23:23 102 H 19 08/25/22 23:15 08/25/22 23:00 08/25/22 23:00 132/95 08/25/22 22:53 107 H 132/93 08/25/22 22:16 108 H 138/95 08/25/22 21:22 111 H 141/84 H 08/25/22 20:07 111 H 18 137/89 08/25/22 19:24 111 H 16 156/84 H 08/25/22 18:47 122 H 18 158/94 H Pulse Ox O2 Del Method 08/26/22 01:52 08/26/22 02:08 97 Room Air 08/26/22 01:15 94 08/26/22 01:15 08/26/22 01:00 94 08/26/22 01:00 08/26/22 00:45 94 08/26/22 00:45 08/26/22 00:30 94 08/26/22 00:30 08/26/22 00:15 94 08/26/22 00:15 08/26/22 00:00 94 08/26/22 00:00 08/25/22 23:45 94 08/25/22 23:45 08/25/22 23:30 08/25/22 23:30 95 08/25/22 23:27 94 08/25/22 23:27 08/25/22 23:23 08/25/22 23:23 95 08/25/22 23:15 95 08/25/22 23:00 93 08/25/22 23:00 08/25/22 22:53 93 Room Air 08/25/22 22:16 95 Room Air 08/25/22 21:22 95 Room Air 08/25/22 20:07 95 Room Air 08/25/22 19:24 96 Room Air 08/25/22 18:47 98 Room Air PG Care Time/CCT Total # of Minutes Spent Total Time Spent with Patient: Total time spent is greater than 50% in coordination of care (as documented) at patient's floor/unit and/or counseling patient: Coding Level of Care Code 75761 Inpt Consult Level 5 Diagnoses Hydronephrosis with ureteral calculus N13.2
[2022-08-26 06:31] LABS: Basophils # (auto) 0.02 K/uL (0-0.2); Basophils % (auto) 0.3 %; Eosinophils # (auto) 0.01 K/uL (0-0.50); Eosinophils % (auto) 0.1 %; Hematocrit (blood only) 26.8 % (40.1-51.0); Hemoglobin 8.9 g/dl (14.0-18.0); Immature Granulocytes # (auto) 0.04 K/uL (0.00-0.02); Immature Granulocytes % (auto) 0.5 %; Lymphocytes # (auto) 1.43 K/uL (1.2-3.4); Lymphocytes % (auto) 18.5 %; Mean Corpuscular Hemoglobin 31.6 pg (25.0-34.0); Mean Corpuscular Hgb Conc 33.2 g/dL (32.0-36.0); Mean Platelet Volume 11.1 fL (9.4-12.4); Monocytes # (auto) 0.67 K/uL (0.24-0.82); Monocytes % (auto) 8.7 %; Neutrophils # (auto) 5.56 K/uL (1.4-6.5); Neutrophils % (auto) 71.9 %; Platelet Count 243 K/uL (130-400); RDW Coefficient of Variation 13.8 % (11.5-14.5); RDW Standard Deviation 47.9 fL (36.4-46.3); Red Blood Count 2.82 M/uL (4.63-6.08); White Blood Count 7.73 K/ul (4.8-10.8)
[2022-08-26 07:03] LABS: Troponin I High Sensitivity 7.9 pg/ml (0-20)
[2022-08-26 07:10] LABS: BUN Creatinine Ratio 9.6 (10-20); Calcium 7.9 mg/dl (8.5-10.1); Creatinine Clr Calc Pharmacy 88.3 ml/min; Est GFR (Non-African American) 59.5 ml/min; Magnesium 1.9 mg/dl (1.7-2.4); Potassium 3.8 mmol/L (3.5-5.1)
--- NOTE | 2022-08-26 07:11 | Electrocardiogram Report ---
Test Reason : Blood Pressure : / mmHG Vent. Rate : 126 BPM Atrial Rate : 126 BPM P-R Int : 156 ms QRS Dur : 090 ms QT Int : 304 ms P-R-T Axes : 047 -27 055 degrees QTc Int : 440 ms Sinus tachycardia Incomplete right bundle branch block Otherwise normal ECG When compared with ECG of 27-JUN-2022 11:46, Vent. rate has increased BY 44 BPM Confirmed by Liu Flanagan ([id number]) on 08/26/2022 7:10:21 AM Referred By: REFERRED SELF Confirmed By:Sean Flanagan
--- NOTE | 2022-08-26 07:22 | Electrocardiogram Report ---
Test Reason : Blood Pressure : / mmHG Vent. Rate : 082 BPM Atrial Rate : 082 BPM P-R Int : 188 ms QRS Dur : 104 ms QT Int : 388 ms P-R-T Axes : 058 -07 027 degrees QTc Int : 453 ms Normal sinus rhythm Incomplete right bundle branch block Borderline ECG When compared with ECG of 25-AUG-2022 16:44, (unconfirmed) Vent. rate has decreased BY 44 BPM Confirmed by Liu Flanagan ([id number]) on 08/26/2022 7:21:34 AM Referred By: REFERRED SELF Confirmed By:Sean Flanagan
[2022-08-26] MEDS: ACETAMINOPHEN 325 MG TAB PO PRN ×3 (08:17→21:37)
[2022-08-26] MEDS: APIXABAN 5 MG TABLET PO SCH ×2 (09:13→21:38)
[2022-08-26] MEDS: amLODIPine BESYLATE 5 MG TAB PO SCH (09:13)
[2022-08-26] MEDS: ENALAPRIL MALEATE 10 MG TAB PO SCH (09:14)
[2022-08-26] MEDS: predniSONE 10 MG TABLET PO SCH (09:14)
--- NOTE | 2022-08-26 09:16 | Orthopedic Consultation ---
Date of Consultation August 26, 2022 Assessment & Plan (1) Wrist sprain: Acute right wrist sprain possible acute scapholunate interosseous ligament tear. Discussed treating him with a wrist brace for now. MRI would help delineate whether this is acute or not. Discussed surgical options of repair or reconst ruction. Discussed nonsurgical treatment with brace and would expect some progression of osteoarthritis over time which is the worst case scenario if he decide not to do anything with it. Possibility he could have gout flareup which would not be unusual post op of the procedure. Recommend evaluating serum uric acid. History of Present Illness Reason for Consultation: Right wrist pain Attending Physician: Olive Rodriguez MD History of Present Illness 52-year-old male with syncopal episode fell on all extremities and has right wrist pain left shoulder pain. Allergies Allergy/AdvReac Type Severity Reaction Status Date / Time No Known Allergies Allergy Unverified 04/30/21 21:58 Home Medications Medication Instructions Recorded Confirmed Type amlodipine 5 mg-benazepril 10 mg 1 cap PO DAILY 08/25/22 08/25/22 History capsule apixaban 5 mg tablet (Eliquis) 5 mg PO BID 08/25/22 08/25/22 History hydrochlorothiazide 25 mg tablet 25 mg PO DAILY PRN Hypertension 08/25/22 08/25/22 History levothyroxine 200 mcg tablet 200 mcg PO DAILY 08/25/22 08/25/22 History prednisone 10 mg tablet 10 mg PO DAILY 08/25/22 08/25/22 History binimetinib 15 mg tablet (Mektovi) 45 mg PO Q12H 08/26/22 08/26/22 History encorafenib 75 mg capsule 450 mg PO DAILY 08/26/22 08/26/22 History (Braftovi) Patient History Medical History Hypertension Melanoma Surgical History Hx of knee surgery Family History Other Family history non-contributory Social History Smoking Status: Never smoker Second Hand Exposure: No; Do You Dip or Chew Tobacco: No; Tobacco Cessation Education Requested by Patient: No Hx Alcohol Use: Yes Alcohol type: beer Hx Substance Use: No Preferred Language: Jordanian Communication Ability: Effective Leveler Helper Required: No Beliefs That Will Affect Care: None Current Living Situation: Alone Other Information That Helps Us Care for You: Yes (stage 5 melanoma) Feels Safe at Home: Yes Safety Concerns: Feels Safe At This Time Assistive Devices: Contacts and Glasses Review of Systems Review of Systems: Recent history of blood in stool and had colonoscopy due to that and has malignant melanoma with development of skin lesions. Has had multiple injuries from construction work and has known osteoarthritis and gout. He has known osteoarthritis of his MP joint of his long finger as he has had pain there before. Physical Exam Physical Exam: Right wrist with diffuse swelling and edema in his fingers as well. Patient cannot make a fist due to the swelling. He has about 50% loss of wrist range of motion and generalized tenderness. Circulation sensory motor exam all normal. Results & Data ([facility]) Vital Signs (Past 12 Hours) Vital Signs Temp Pulse Pulse Resp BP BP BP 08/26/22 08:20 36.6 C 82 18 166/106 H 08/26/22 07:00 82 08/26/22 01:52 102 H 08/26/22 02:08 37 C 90 18 148/102 H 08/26/22 01:15 94 H 25 H 08/26/22 01:15 145/110 H 08/26/22 01:00 96 H 23 08/26/22 01:00 163/101 H 08/26/22 00:45 97 H 24 08/26/22 00:45 152/108 H 08/26/22 00:30 98 H 22 08/26/22 00:30 140/107 H 08/26/22 00:15 99 H 22 08/26/22 00:15 139/107 H 08/26/22 00:00 99 H 21 08/26/22 00:00 134/105 H 08/25/22 23:45 99 H 17 08/25/22 23:45 147/111 H 08/25/22 23:30 149/102 H 08/25/22 23:30 101 H 21 08/25/22 23:27 100 H 21 08/25/22 23:27 139/105 H 08/25/22 23:23 155/104 H 08/25/22 23:23 102 H 19 08/25/22 23:15 08/25/22 23:00 08/25/22 23:00 132/95 08/25/22 22:53 107 H 132/93 08/25/22 22:16 108 H 138/95 08/25/22 21:22 111 H 141/84 H Pulse Ox O2 Del Method 08/26/22 08:20 95 Room Air 08/26/22 07:00 08/26/22 01:52 08/26/22 02:08 97 Room Air 08/26/22 01:15 94 08/26/22 01:15 08/26/22 01:00 94 08/26/22 01:00 08/26/22 00:45 94 08/26/22 00:45 08/26/22 00:30 94 08/26/22 00:30 08/26/22 00:15 94 08/26/22 00:15 08/26/22 00:00 94 08/26/22 00:00 08/25/22 23:45 94 08/25/22 23:45 08/25/22 23:30 08/25/22 23:30 95 08/25/22 23:27 94 08/25/22 23:27 08/25/22 23:23 08/25/22 23:23 95 08/25/22 23:15 95 08/25/22 23:00 93 08/25/22 23:00 08/25/22 22:53 93 Room Air 08/25/22 22:16 95 Room Air 08/25/22 21:22 95 Room Air Laboratory Results I did not see any serum uric acid level. White blood cell count normal Diagnostic Findings X-rays of his right wrist demonstrate he has a widened scapholunate interval mild DISI deformity with no acute fracture.
[2022-08-26 10:07] LABS: Thyroid Stimulating Hormone 1.927 uIu/ml (0.300-4.500)
[2022-08-26 10:09] LABS: T4 Free Thyroxine 1.4 ng/dl (0.61-1.60)
[2022-08-26 10:12] LABS: Ferritin 57.1 ng/ml (8-388)
--- NOTE | 2022-08-26 10:26 | Hospitalist Progress Note ---
Date of Service August 26, 2022 Assessment & Plan (1) Orthostatic syncope: Plan: Syncope Based on history, this is due to GI losses from colonoscopy prep Getting IVF Encourage po rehydration Orthostatic VS: Supine 154/94, 104, Sitting 149/103, 105; Standing 144/95, 113 (2) Anemia: Plan: Hb has dropped from 15 on 06/27/22 to 8.9 today Likely due to GI blood loss reported within the past week leading to EGD/Colonoscopy Per report of EGD which patient provided, gastritis and nonbleeding ulcers were noted and thought to be due to NSAID use Monitor Hb Follow up anemia workup (3) Right wrist sprain: Plan: XR wrist noted no acute fracture but has widening between scaphoid and lunate suggestive of chronic ligamentous injury Ortho recs noted MRI ordered by Ortho (4) Hydronephrosis with ureteral calculus: Plan: Abd CT had noted 4mm right obstructive stone Asymptomatic Patient to follow up with urology outpatient Strain urine Monitor renal function (5) Hypothyroidism: Plan: Reported his levothyroxine was recently increased within the week Patient to continue follow up with his Fire Hydrant Operator (6) Melanoma: Plan: History of metastatic melanoma Contiue home meds Follow up with his oncologist outpatient (7) Hypertension: Plan: Continue home meds Admission and Anticipated Discharge Date Admission Date: August 25, 2022 Subjective Patient seen and examined Reported 2 syncopal episodes at home yesterday post EGD/Colonoscopy on 08/24/22 Reported episodes of bloody BM last week prior to scopes Reported dizziness on getting up prior to both episodes. 2nd episode happened after using the bathroom Reports weakness is improved with IVF she got on admission. Reports right wrist pain and left shoulder pain where he fell. Denied head trauma Denied chest pain, cough, shortness of breath Denied dysuria, freq, urgency Physical Exam Constitutional: + well hydrated and + obese; no acute distress Eyes: PERRL, conjunctivae normal, anicteric sclerae ENMT: external ear and nose normal, oropharynx normal Respiratory: normal respiratory effort, lungs clear to auscultation Cardiovascular: Rate/Rhythm: regular rate and regular rhythm S1 S2 Gastrointestinal (Abdomen): normal bowel sounds, soft, nontender, no hepatosplenomegaly Musculoskeletal: Right hand and wrist swelling Neurologic: PERRL, EOMI, accommodation nl, no face palsy, no dysarthria Psychiatric: A+Ox3, euthymic affect Results & Data Results & Data ([facility]) Vital Signs (Past 12 Hours) Vital Signs Temp Pulse Pulse Resp BP BP BP 08/26/22 08:20 36.6 C 82 18 166/106 H 08/26/22 07:00 82 08/26/22 01:52 102 H 08/26/22 02:08 37 C 90 18 148/102 H 08/26/22 01:15 94 H 25 H 08/26/22 01:15 145/110 H 08/26/22 01:00 96 H 23 08/26/22 01:00 163/101 H 08/26/22 00:45 97 H 24 08/26/22 00:45 152/108 H 08/26/22 00:30 98 H 22 08/26/22 00:30 140/107 H 08/26/22 00:15 99 H 22 08/26/22 00:15 139/107 H 08/26/22 00:00 99 H 21 08/26/22 00:00 134/105 H 08/25/22 23:45 99 H 17 08/25/22 23:45 147/111 H 08/25/22 23:30 149/102 H 08/25/22 23:30 101 H 21 08/25/22 23:27 100 H 21 08/25/22 23:27 139/105 H 08/25/22 23:23 155/104 H 08/25/22 23:23 102 H 19 08/25/22 23:15 08/25/22 23:00 08/25/22 23:00 132/95 08/25/22 22:53 107 H 132/93 Pulse Ox O2 Del Method 08/26/22 08:20 95 Room Air 08/26/22 07:00 08/26/22 01:52 08/26/22 02:08 97 Room Air 08/26/22 01:15 94 08/26/22 01:15 08/26/22 01:00 94 08/26/22 01:00 08/26/22 00:45 94 08/26/22 00:45 08/26/22 00:30 94 08/26/22 00:30 08/26/22 00:15 94 08/26/22 00:15 08/26/22 00:00 94 08/26/22 00:00 08/25/22 23:45 94 08/25/22 23:45 08/25/22 23:30 08/25/22 23:30 95 08/25/22 23:27 94 08/25/22 23:27 08/25/22 23:23 08/25/22 23:23 95 08/25/22 23:15 95 08/25/22 23:00 93 08/25/22 23:00 08/25/22 22:53 93 Room Air Laboratory Results Abnormal lab results 08/25/22 08/25/22 08/25/22 Range/Units 16:35 16:35 17:52 WBC 11.30 H (4.8-10.8) K/ul RBC 3.44 L (4.63-6.08) M/uL Hgb 10.7 L (14.0-18.0) g/dl Hct 32.3 L (40.1-51.0) % RDW Std Deviation 46.8 H (36.4-46.3) fL Neut # (Auto) 9.59 H (1.4-6.5) K/uL Lymph # (Auto) 0.82 L (1.2-3.4) K/uL Immature Gran # (Auto) 0.05 H (0.00-0.02) K/uL VBG pH 7.44 H (7.36-7.41) VBG pCO2 35 L (38-50) mmHg Sodium (136-145) mmol/L Carbon Dioxide 20 L (21-32) mmol/L BUN/Creatinine Ratio 8.6 L (10-20) Glucose 111 H (70-99(Fasting)) mg/dl Uric Acid (2.6-7.2) mg/dl Calcium (8.5-10.1) mg/dl Magnesium 1.4 L (1.7-2.4) mg/dl Iron (35-175) mcg/dl Transferrin (200-360) mg/dl Albumin 3.3 L (3.4-5.0) gm/dl Urine Ketones (Negative) Urine Blood (Negative) Urine RBC (Auto) (0-4) /hpf U Epithel Cells (Auto) (0-5) /lpf 08/25/22 08/26/22 08/26/22 Range/Units 19:10 05:18 05:18 WBC (4.8-10.8) K/ul RBC 2.82 L (4.63-6.08) M/uL Hgb 8.9 L (14.0-18.0) g/dl Hct 26.8 L (40.1-51.0) % RDW Std Deviation 47.9 H (36.4-46.3) fL Neut # (Auto) (1.4-6.5) K/uL Lymph # (Auto) (1.2-3.4) K/uL Immature Gran # (Auto) 0.04 H (0.00-0.02) K/uL VBG pH (7.36-7.41) VBG pCO2 (38-50) mmHg Sodium 135 L (136-145) mmol/L Carbon Dioxide (21-32) mmol/L BUN/Creatinine Ratio 9.6 L (10-20) Glucose 111 H (70-99(Fasting)) mg/dl Uric Acid (2.6-7.2) mg/dl Calcium 7.9 L (8.5-10.1) mg/dl Magnesium (1.7-2.4) mg/dl Iron (35-175) mcg/dl Transferrin (200-360) mg/dl Albumin (3.4-5.0) gm/dl Urine Ketones Trace H (Negative) Urine Blood 3+ H (Negative) Urine RBC (Auto) >30 H (0-4) /hpf U Epithel Cells (Auto) 5-10 H (0-5) /lpf 08/26/22 08/26/22 Range/Units 05:18 09:08 WBC (4.8-10.8) K/ul RBC (4.63-6.08) M/uL Hgb (14.0-18.0) g/dl Hct (40.1-51.0) % RDW Std Deviation (36.4-46.3) fL Neut # (Auto) (1.4-6.5) K/uL Lymph # (Auto) (1.2-3.4) K/uL Immature Gran # (Auto) (0.00-0.02) K/uL VBG pH (7.36-7.41) VBG pCO2 (38-50) mmHg Sodium (136-145) mmol/L Carbon Dioxide (21-32) mmol/L BUN/Creatinine Ratio (10-20) Glucose (70-99(Fasting)) mg/dl Uric Acid 8.2 H (2.6-7.2) mg/dl Calcium (8.5-10.1) mg/dl Magnesium (1.7-2.4) mg/dl Iron 18 L (35-175) mcg/dl Transferrin 190 L (200-360) mg/dl Albumin (3.4-5.0) gm/dl Urine Ketones (Negative) Urine Blood (Negative) Urine RBC (Auto) (0-4) /hpf U Epithel Cells (Auto) (0-5) /lpf (1) Right wrist sprain Encounter type: initial encounter Qualified Code(s): S63.501A - Unspecified sprain of right wrist, initial encounter (2) Anemia Anemia type: unspecified type Qualified Code(s): D64.9 - Anemia, unspecified
[2022-08-26] MEDS: PANTOprazole 40 MG TAB PO SCH (11:15)
[2022-08-26] MEDS: BINIMETINIB 15 MG PO SCH ×2 (11:22→22:06)
[2022-08-26] MEDS: ENCORAFENIB 75 MG PO SCH (11:23)
--- NOTE | 2022-08-26 14:13 | Cardiology Consultation ---
Date of Consultation August 26, 2022 Assessment & Plan (1) Orthostatic syncope: Plan The patient suffered from an orthostatic syncopal spell in the setting of significant volume depletion status post bowel prep and being n.p.o. for several days. Cardiac work-up is unremarkable. Recommend continued IV fluid hydration. No further cardiac test intervention necessary at this time. No medication changes were made at this time. Okay to discharge to home once lightheadedness and orthostatics have resolved from a cardiac standpoint History of Present Illness Reason for Consultation: Syncope Requesting Physician: Marlene hospitalist group Attending Physician: Olive Rodriguez MD History of Present Illness It was my pleasure to see the patient in cardiac consultation today August 26, 2022. He presented to [facility] on 08/25/2022 with reports of a syncopal episode. This occurred in the setting of the patient being n.p.o. prior to a CT scan and then later that same day starting bowel prep for colonoscopy. Patient underwent colonoscopy on 08/24/2022 and tolerated well. Afterwards, he states that he went home and slept. He did not drink any fluid and only had a bowl of chili to eat. He then stood up to go to the bathroom whe n he became lightheaded and syncopized. He did injure his hand and shoulder with a fall. He denies any other cardiac complaints of chest pain, shortness of breath or palpitations. He denies any previous similar episodes. He still feels a little lightheaded with activity at this time but otherwise well. Allergies Allergy/AdvReac Type Severity Reaction Status Date / Time No Known Allergies Allergy Unverified 04/30/21 21:58 Home Medications Medication Instructions Recorded Confirmed Type amlodipine 5 mg-benazepril 10 mg 1 cap PO DAILY 08/25/22 08/25/22 History capsule apixaban 5 mg tablet (Eliquis) 5 mg PO BID 08/25/22 08/25/22 History hydrochlorothiazide 25 mg tablet 25 mg PO DAILY PRN Hypertension 08/25/22 08/25/22 History levothyroxine 200 mcg tablet 200 mcg PO DAILY 08/25/22 08/25/22 History prednisone 10 mg tablet 10 mg PO DAILY 08/25/22 08/25/22 History binimetinib 15 mg tablet (Mektovi) 45 mg PO Q12H 08/26/22 08/26/22 History encorafenib 75 mg capsule 450 mg PO DAILY 08/26/22 08/26/22 History (Braftovi) Patient History Medical History Hypertension Melanoma Surgical History Hx of knee surgery Family History Other Family history non-contributory Social History Smoking Status: Never smoker Second Hand Exposure: No; Do You Dip or Chew Tobacco: No; Tobacco Cessation Education Requested by Patient: No Hx Alcohol Use: Yes Alcohol type: beer Hx Substance Use: No Preferred Language: [place]an Communication Ability: Effective Shower Enclosure Installer Required: No Beliefs That Will Affect Care: None marital status: Single Current Living Situation: Alone Other Information That Helps Us Care for You: Yes (stage 5 melanoma) Feels Safe at Home: Yes Safety Concerns: Feels Safe At This Time Assistive Devices: None Review of Systems Review of Systems: All systems reviewed & are unremarkable except as noted in HPI & below Physical Exam Physical Exam: Physical Exam: General: Awake, alert and oriented x 3. No acute distress. HEENT: Normocephalic, atraumatic. Pupils equal, round and reactive to light and accommodation. Extraocular muscles are intact. Anicteric sclera. Moist mucous membranes. Neck: No JVD. No bruit. Cardiovascular: Regular. No S-4. Normal S-1 and S-2. No S-3. No murmurs, rubs or gallops. Pulmonary: Clear to auscultation bilaterally. No rales, rhonchi, or wheezing. Abdomen: Bowel sounds x 4, soft. No rebound, guarding or tenderness. No organomegaly. Extremities: No clubbing, cyanosis or edema. +2 pedal pulses bilaterally. Skin: Warm and dry. Results & Data ([facility]) Vital Signs (Past 12 Hours) Vital Signs Temp Pulse Pulse Resp BP Pulse Ox O2 Del Method 08/26/22 11:59 36.7 C 82 16 151/93 H 97 Room Air 08/26/22 08:20 36.6 C 82 18 166/106 H 95 Room Air 08/26/22 07:00 82
[2022-08-26] MEDS ORDERED: SODIUM CHLORIDE 0.9% 1000ML 1,000 ML IV SCH (14:30)
[2022-08-26 15:59] LABS: Hematocrit (blood only) 28.6 % (40.1-51.0); Hemoglobin 9.3 g/dl (14.0-18.0)
[2022-08-27] MEDS: LEVOTHYROXINE SODIUM 200 MCG TABLET PO SCH (05:33)
[2022-08-27] MEDS: ACETAMINOPHEN 325 MG TAB PO PRN (05:34)
--- NOTE | 2022-08-27 06:41 | Communication Note ---
Date of Service: August 27, 2022 Patient seen and examined this morning, pain is about the same at his wrist as yesterday. At this point we are waiting on his MRI, were not able to complete yesterday as they are waiting for his operative note from his colonoscopy. At this point and continue with ice, elevation. Did order him a wrist splint but he states he did not receive this yesterday, will check to see if this is available today. Will reassess once MRI has been completed
[2022-08-27 07:09] LABS: Hematocrit (blood only) 27.7 % (40.1-51.0); Hemoglobin 8.9 g/dl (14.0-18.0); Mean Corpuscular Hemoglobin 30.7 pg (25.0-34.0); Mean Corpuscular Hgb Conc 32.1 g/dL (32.0-36.0); Mean Corpuscular Volume 95.5 fL (80.0-100.0); Mean Platelet Volume 10.7 fL (9.4-12.4); Platelet Count 226 K/uL (130-400); RDW Coefficient of Variation 13.9 % (11.5-14.5); White Blood Count 4.64 K/ul (4.8-10.8)
--- NOTE | 2022-08-27 07:17 | Electrocardiogram Report ---
Test Reason : Blood Pressure : / mmHG Vent. Rate : 067 BPM Atrial Rate : 067 BPM P-R Int : 190 ms QRS Dur : 110 ms QT Int : 398 ms P-R-T Axes : 042 -07 016 degrees QTc Int : 420 ms Normal sinus rhythm Incomplete right bundle branch block Borderline ECG When compared with ECG of 26-AUG-2022 05:15, No significant change was found Confirmed by Liu Flanagan ([id number]) on 08/27/2022 7:17:19 AM Referred By: REFERRED SELF Confirmed By:Sean Flanagan
[2022-08-27 07:35] LABS: BUN Creatinine Ratio 12.7 (10-20); Creatinine Clr Calc Pharmacy 95.8 ml/min; Est GFR (Non-African American) 64.7 ml/min; Magnesium 1.9 mg/dl (1.7-2.4); Phosphorus 2.9 mg/dl (2.5-4.9); Potassium 3.9 mmol/L (3.5-5.1)
[2022-08-27] MEDS: BINIMETINIB 15 MG PO SCH (08:56)
[2022-08-27] MEDS: ENCORAFENIB 75 MG PO SCH (08:57)
[2022-08-27] MEDS: amLODIPine BESYLATE 5 MG TAB PO SCH (09:00)
[2022-08-27] MEDS: PANTOprazole 40 MG TAB PO SCH (09:00)
[2022-08-27] MEDS: APIXABAN 5 MG TABLET PO SCH (09:00)
[2022-08-27] MEDS: ENALAPRIL MALEATE 10 MG TAB PO SCH (09:00)
[2022-08-27] MEDS: predniSONE 10 MG TABLET PO SCH (09:01)
[2022-08-27] MEDS ORDERED: FERROUS SULFATE 325 MG TAB PO SCH (09:30)
--- NOTE | 2022-08-27 13:55 | Cardiology Progress Note ---
Date of Service August 27, 2022 Assessment & Plan (1) Orthostatic syncope: Plan The patient suffered from an orthostatic syncopal spell in the setting of significant volume depletion status post bowel prep and being n.p.o. for several days. Cardiac work-up is unremarkable. Has responded well to IV fluid hydration. No further cardiac testing or invention necessary at this time. Okay to discharge to home from a cardiac standpoint. No cardiac follow-up necessary at this time. Recommend follow-up with PCP. Admission and Anticipated Discharge Date Admission Date: August 25, 2022 Subjective Patient seen and examined. Chart reviewed. Telemetry reviewed. Family at bedside. Patient without complaint. Review of Systems Review of Systems: All systems reviewed & are unremarkable except as noted in HPI & below Physical Exam Physical Exam: Physical Exam: General: Awake, alert and oriented x 3. No acute distress. HEENT: Normocephalic, atraumatic. Pupils equal, round and reactive to light and accommodation. Extraocular muscles are intact. Anicteric sclera. Moist mucous membranes. Neck: No JVD. No bruit. Cardiovascular: Regular. No S-4. Normal S-1 and S-2. No S-3. No murmurs, rubs or gallops. Pulmonary: Clear to auscultation bilaterally. No rales, rhonchi, or wheezing. Abdomen: Bowel sounds x 4, soft. No rebound, guarding or tenderness. No orga nomegaly. Extremities: No clubbing, cyanosis or edema. +2 pedal pulses bilaterally. Skin: Warm and dry. Results & Data ([facility]) Vital Signs (Past 12 Hours) Vital Signs Temp Pulse Pulse Resp BP Pulse Ox O2 Del Method 08/27/22 11:31 36.7 C 84 14 135/94 95 Room Air 08/27/22 07:21 78 08/27/22 07:03 36.7 C 66 15 148/95 H 99 Room Air 08/27/22 03:43 36.6 C 75 18 120/79 97 Room Air
--- NOTE | 2022-08-27 14:49 | Discharge Summary ---
Discharge Summary Date of Service August 27, 2022 Notes For Next Care Provider Patient can follow up with Ortho for right wrist sprain Follow up pathology from recent EGD/Colonoscopy biopsy Continue management of chronic medical problems Monitor and manage anemia Medication Changes From Visit Started on ferrous sulphate for anemia Started on pantoprazole based on EGD report done by his GI Admission HPI Per Admitting Provider This is a 52-year-old male with past medical history significant for malignant metastatic melanoma, recurrence, follows with [facility], currently on encorafenib and binimetinib; recently DVT and PE, on Eliquis; lately developing vitiliginous patches, history of hypertension, gout, hypothyroidism, hyperlipidemia, chronic kidney disease, who had colonoscopy yesterday presents with syncopal episode. The patient says he had a colonoscopy yesterday was okay and today at 1 a.m. when he got up, he felt a little dizzy and he passed out fell on his 4 extremities. He says he did not pass out for a long time. When he woke up, he was little confused for a for moment, but then was back to normal, then he went to his bathroom and was getting up from the commode, again felt dizzy and fell on the fell on the left shoulder and thinks hit hed on left side, had some soreness in the left shoulder, has a bruise on the left side of the belly. He called his sister and brought him to the hospital. In the hospital, he was given fluids and whenever he is trying to get up, he has some dizziness. Has pain n the right wrist but x-rays, no acute fracture. CT of abdomen and pelvis showing right obstructive stone in the proximal ureter 4 mm. The patient does not have any obvious symptoms for that. Currently, resting co mfortably, hemodynamically stable. Denies any headaches. No blurred visions, no runny nose, no sore throat. He has occasional cough from his lung lesions. Currently, denies any chest pain, no shortness of breath, no nausea, no abdominal pain. The patient states he has normal bowel and bladder movements. Before all this happened, he was ambulating fine and climbing steps okay. Admission Exam Per Admitting Provider GENERAL: The patient is obese, not in acute distress. VITAL SIGNS: Temperature 37.7, pulse 108, respiratory rate 18, blood pressure 130/95, oxygen 95% on room air. HEENT: Pupils equal, round and reactive to light. Oral mucosa moist. NECK: No JVD, no neck masses. CARDIOVASCULAR: S1 and S2 heard. Regular rate and rhythm. No murmur, no gallop. RESPIRATORY SYSTEM: Normal AP diameter. No accessory muscle use. No wheezing, no crackles. ABDOMEN: Soft, bowel sounds present. Two small bruises seen on the left side of the abdomen. No distention. No guarding. CENTRAL NERVOUS SYSTEM: Cranial nerves II-XII grossly intact, nonfocal. EXTREMITIES: Mild pedal edema, no erythema seen. Principal Dx & Hospital Course #1 = Principal Diagnosis (1) Orthostatic syncope: Syncope Reported 2 syncopal episodes at home yesterday post EGD/Colonoscopy on 08/24/22 Reported episodes of bloody BM last week prior to scopes Reported dizziness on getting up prior to both episodes. 2nd episode happened after using the bathroom Based on history, this is due to GI losses from colonoscopy prep. Likely compounded by anemia Got IVF TTE was unremarkable Orthostatic dizziness resolved (2) Anemia: Hb has dropped from 15 on 06/27/22 to 10.7 on presentation Likely due to GI blood loss reported within the past week leading to EGD/Colonoscopy Per report of EGD which patient provided, gastritis and nonbleeding ulcers were noted and thought to be due to NSAID use Patient was started on pantoprazole and ferrous sulphate Advised to take stool softener he reported the GI doctor that did his scope told him to take Hb remained stable in 8-9 while inpatient (3) Right wrist sprain: Wrist sprain from his fall XR wrist noted no acute fracture but has widening between scaphoid and lunate suggestive of chronic ligamentous injury Was evaluated by Ortho. Patient can follow up with Ortho outpatient Wrist brace provided on discharge (4) Hydronephrosis with ureteral calculus: Abd CT had noted 4mm right obstructive stone Asymptomatic Evaluated by Urology who recommended follow up outpatient (5) Hypothyroidism: Reported his levothyroxine was recently increased within the week Patient to continue follow up with his Publication Director (6) Melanoma: History of metastatic melanoma Continue home meds Follow up with his oncologist outpatient (7) Hypertension: Continue home meds Discharge Exam Constitutional + well hydrated and + obese; no acute distress Eyes PERRL, conjunctivae normal, anicteric sclerae ENMT external ear and nose normal, oropharynx normal Respiratory normal respiratory effort, lungs clear to auscultation Cardiovascular Rate/Rhythm: regular rate and regular rhythm S1 S2 Gastrointestinal (Abdomen) normal bowel sounds, soft, nontender, no hepatosplenomegaly Musculoskeletal Right wrist swelling Neurologic PERRL, EOMI, accommodation nl, no face palsy, no dysarthria Psychiatric A+Ox3, euthymic affect Updated Medication List Medication Instructions Recorded Confirmed Type amlodipine 5 mg-benazepril 10 mg 1 cap PO DAILY 08/25/22 08/25/22 History capsule apixaban 5 mg tablet (Eliquis) 5 mg PO BID 08/25/22 08/25/22 History hydrochlorothiazide 25 mg tablet 25 mg PO DAILY PRN Hypertension 08/25/22 08/25/22 History levothyroxine 200 mcg tablet 200 mcg PO DAILY 08/25/22 08/25/22 History prednisone 10 mg tablet 10 mg PO DAILY 08/25/22 08/25/22 History binimetinib 15 mg tablet (Mektovi) 45 mg PO Q12H 08/26/22 08/26/22 History encorafenib 75 mg capsule 450 mg PO DAILY 08/26/22 08/26/22 History (Braftovi) ferrous sulfate 325 mg (65 mg 325 mg PO QAM #30 tabs 08/27/22 Rx iron) tablet,delayed release pantoprazole 40 mg tablet,delayed 40 mg PO QAM #30 tabs 08/27/22 Rx release Hospital Stay Data Consultations 08/25/22 20:57 ED Decision to Admit Stat 08/26/22 08:00 Consult Cardiology Routine Consult Orthopedic Surgery Routine Consult Urology Routine Diagnostic Imagining Performed 08/25/22 16:33 CT abd pelvis wo con Stat Lower chest: Bibasilar atelectasis versus scarring is seen. Liver: Unremarkable. No focal lesions are seen. Gallbladder and biliary tree: No calcified gallstones. Normal caliber wall. No intra- or extrahepatic biliary ductal dilation. Pancreas: Unremarkable, no focal lesions. Spleen: Unremarkable. Adrenals: A lipid rich adenoma is seen on the right. Kidneys and ureters: Perinephric stranding is noted bilaterally. There is a stone in the right proximal ureter measuring 4 mm. There is minimal hydronephrosis and hydroureter. Bladder: Unremarkable. Reproductive organs: Unremarkable. Bowel: Unremarkable appearance of the bowel. The appendix is normal. Lymph nodes Retroperitoneal: Unremarkable. Pelvic: Unremarkable. Mesenteric: Unremarkable. Peritoneum: Normal. Vessels: Atherosclerotic calcifications are seen. Abdominal wall: Redemonstration of a soft tissue nodule in the left buttock, unchanged. Bones: Degenerative changes in the visualized spine. IMPRESSION: 1. No acute traumatic abnormalities. No acute fractures. 2. Right obstructive stone in the proximal ureter. 3. Unchanged appearance of left buttock soft tissue nodule. CT cervical spine wo con Stat No acute fractures or subluxations are identified. Degenerative changes are seen in the visualized spine. The alignment is normal. Soft tissues are unremarkable. IMPRESSION: No evidence of acute bony injury. CT head/brain wo con Stat The ventricles, basal cisterns, and cerebral sulci are normal. There is no acute intracranial hemorrhage or evidence of acute territorial infarction. Neither mass effect, shift of the midline structures, nor abnormal extra-axial fluid collections are shown. Imaged portions of the paranasal sinuses and mastoid air cells are clear. The orbits appear normal. There are no acute fractures of the calvaria or scalp swelling. Impression: No acute intracranial hemorrhage, no evidence of acute territorial infarction or other acute intracranial disease process. 08/27/22 07:33 MR wrist RT wo con Routine Pending Results Patient Have Any Pending Studies at Discharge: No Discharge Instructions Given to Patient (Per Discharging Provider) Mr Corey. You came to the hospital after 2 fainting episodes. You were evaluated. These episodes were due to dehydration from bowel prep from colonoscopy as well as anemia. Based on your recent endoscopic report (EGD) you were started on pantoprazole. You were also started on iron tablets for anemia. Please continue the stool softeners already written for you by your doctors. Please use wrist splint/brace on your right hand and ensure follow up with Orthopedic surgeon outpatient for continued management. It was a pleasure taking care of you. Total Time Total Time Spent Total Time Spent (In Minutes): 50
--- NOTE | 2022-08-27 16:15 | Urology Progress Note ---
Date of Service August 27, 2022 Assessment & Plan (1) Orthostatic syncope: (2) Hydronephrosis with ureteral calculus: (3) Hypothyroidism: (4) Syncope: (5) Hypomagnesemia: (6) Melanoma: Plan Patient admitted with syncope and acute illness. Had been undergoing GI work- up. Was dealing with anemia issues possibly due to GI source. Patient incidentally found to have stone. Imaging was reviewed interpreted by myself. Agree with findings of small obstructing stone. Patient is not having considerable pain issues concerns or bother or major issues. No major nausea or vomiting. No considerable issues. Has never had stones before. No major family history of stone disease. Patient is tolerating hydration at this point. Is not having considerable pain. No major VICKY or other major abnormality. No fevers. Plan is to continue with hydration and supportive care maximum expulsion therapy. May not be candidate for tamsulosin due to recent syncope issues however this will be a consideration though patient would need to monitor for issues with dizziness when standing. We will plan to continue with monitoring. We will likely need outpatient work- up to further assess and assess for stone passage. If patient is unable to pass may need further intervention. We will plan to continue with current plan. Will follow. Call if any major issues. Follow-up as outpatient Admission and Anticipated Discharge Date Admission Date: August 25, 2022 Subjective Patient admitted with stone and discomfort. Patient is afebrile. Has been undergoing maximum expulsion therapy with oral medications, IV medications, IV fluids, and oral intake. Is doing better without considerable increase in pain or major issues. Has not developed severe vomiting or other issues. Has not experienced fever or chills. Has been tolerating oral medications. Is tolerating fluids. Has noticed some frequency and urgency. Has not had severe pain in the back and flank. Does have occasional burning and irritation. No severe episodes or major changes. Patient does not believe the passed a stone. Has not passed a large amount of blood or debris that may be the stone. Patient is admitted with syncope and anemia. Was undergoing further work-up. Has multiple comorbidities and has been dealing with exacerbation of some of these issues. Has been working on hydration. Has no history of stones. Has no major family history of stone disease. Review of Systems Review of Systems: All systems reviewed & are unremarkable except as noted in HPI & below Physical Exam Physical Exam: General: Alert in no acute distress. HEENT: Normocephalic Atraumatic. Inspection normal. Cranial Nerves 2-12 Grossly intact. Normal inspection of face. Normal inspection of neck. Psychologic: Normal affect. Respiratory: Nonlabored. No use of accessory muscles. No tachypnea or dyspnea. Cardiovascular: No tachycardia Skin: [place] and Dry. No rashes or visible lesions. Extremities/Lymphatics: No edema Abdomen: Soft Non-distended. No rebound or guarding. Obese Results & Data ([facility]) Vital Signs (Past 12 Hours) Vital Signs Temp Pulse Pulse Resp BP BP Pulse Ox 08/27/22 15:38 36.5 C 79 16 155/102 H 132/93 98 08/27/22 15:24 36.5 C 79 16 155/102 H 98 08/27/22 11:31 36.7 C 84 14 135/94 95 08/27/22 07:21 78 08/27/22 07:03 36.7 C 66 15 148/95 H 99 O2 Del Method 08/27/22 15:38 08/27/22 15:24 Room Air 08/27/22 11:31 Room Air 08/27/22 07:21 08/27/22 07:03 Room Air PG Care Time/CCT Total # of Minutes Spent Total Time Spent with Patient: Total time spent is greater than 50% in coordination of care (as documented) at patient's floor/unit and/or counseling patient: Coding Level of Care Code 18414 Subseq Hosp Care Lvl 3 Diagnoses Orthostatic syncope I95.1 Hydronephrosis with ureteral calculus N13.2 Hypothyroidism E03.9 Syncope R55 Syncope type: unspecified Hypomagnesemia E83.42 Melanoma C43.9 (1) Syncope Syncope type: unspecified Qualified Code(s): R55 - Syncope and collapse
--- NOTE | 2022-08-27 18:17 | Magnetic Resonance Report ---
MR wrist RT wo con CLINICAL HISTORY: 52 years-old Male with scapholunate widening. Acute pain of the right wrist with r ecent fall. COMPARISON: Wrist radiographs 08/25/2022, right hand radiographs 12/18/2019 TECHNIQUE: Multiplanar, multi sequence MRI of the right wrist was performed without intravenous contr ast. FINDINGS: Motion degraded exam. EXTRINSIC LIGAMENTS: The volar extrinsic ligaments including the mvafw-kecoce-mofpyyuy and radio-edis o-triquetral ligaments are grossly intact. INTRINSIC LIGAMENTS: The scapholunate interval is abnormally widened to 6 mm, new from the 2019 exam . There is complete full-thickness tearing involving the dorsal, volar and interosseous bands of the scapholunate ligament. The visualized lunotriquetral ligaments are ligament appears intact without ev idence of lunotriquetral interval widening. TFCC: Suboptimal evaluation of the triangulofibrocartilage complex secondary to motion artifact. The re is degeneration of the articular disc with possible central zone tearing. The visualized meniscal homologue, the extensor carpi ulnaris tendon, the volar and dorsal distal radioulnar ligaments and th e ulnolunate and ulnotriquetral ligaments appear intact. BONE MARROW: No acute fracture or marrow replacing process identified. JOINT SPACES: There is mild radiocarpal, intercarpal and first carpometacarpal osteoarthritis with m ild scattered subcortical edema/cystic change noted throughout the carpus. CARPAL TUNNEL: The contents of the carpal tunnel are unremarkable in appearance without evidence of carpal tunnel syndrome. The flexor tendons and median nerve are unremarkable in appearance. The fle xor retinaculum is unremarkable. The ulnar nerve appears unremarkable. EXTENSOR TENDONS: The extensor tendons are unremarkable, without tear or significant degeneration. T race tenosynovitis of the first, second and fourth extensor compartments. No evidence of dislocation or subluxation of the extensor tendons. SOFT TISSUES: There is moderate diffuse subcutaneous edema, most pronounced dorsally. No abscess swati ntified. Mild circumferential nonspecific deep tissue edema about the wrist. There is a small joint e ffusion of the wrist and distal radial ulnar joint containing intra-articular debris. IMPRESSION: 1. Motion degraded exam. 2. Nonspecific diffuse subcutaneous edema with small joint effusion containing intra-articular debris . 3. Full-thickness tearing of the scapholunate ligaments is likely acute or subacute. Widening of the scapholunate interval is new from 12/18/2019. 4. Osteoarthritis without acute fracture or dislocation identified. ACT 112: Negative or not required by law. The above report was generated using voice recognition software. It may contain grammatical, syntax o r spelling errors. Dictated: 08/27/2022 3:44 PM Transcribed: 08/27/2022 4:03 PM Vaishnavi [id number] [email or web address] Electronically signed by: Lorne Moore M.D. 08/27/2022 6:15 PM
== END 2022-08-27 16:29 | disposition home or self-care (01) | DRG 312 ==
LOC: ED 16:26 → 2S 22:40
DX: C79.9 Secondary malignant neoplasm of unspecified site; E83.42 Hypomagnesemia; I95.1 Orthostatic hypotension; M24.512 Contracture, left shoulder; Y92.029 Unspecified place in mobile home as the place of occurrence of the external cause; D64.9 Anemia, unspecified; Z83.3 Family history of diabetes mellitus; Z86.718 Personal history of other venous thrombosis and embolism; I12.9 Hypertensive chronic kidney disease with stage 1 through stage 4 chronic kidney disease, or unspecified chronic kidney disease; D50.0 Iron deficiency anemia secondary to blood loss (chronic); Z98.890 Other specified postprocedural states; C43.9 Malignant melanoma of skin, unspecified; M19.131 Post-traumatic osteoarthritis, right wrist; W19.XXXA Unspecified fall, initial encounter; S63.501A Unspecified sprain of right wrist, initial encounter; N18.9 Chronic kidney disease, unspecified; N13.2 Hydronephrosis with renal and ureteral calculous obstruction; Z86.711 Personal history of pulmonary embolism

== ENCOUNTER 2022-11-09 03:23 | Inpatient (IN) ==
[2022-11-09] MEDS ORDERED: ONDANSETRON INJ 2 MG/ML 2 ML VIAL IV STA (03:47)
[2022-11-09] MEDS ORDERED: PANTOprazole 80 MG in DEXTROSE 5% 100 ML IV ONE (03:47)
[2022-11-09] MEDS ORDERED: FAMOTIDINE 20MG IV PUSH 20 MG/5 ML SYR IV STA (03:47)
--- NOTE | 2022-11-09 03:54 | Emergency Department Note ---
History of Present Illness General Chief complaint: GI Assessment Stated complaint: BLOOD IN STOOL Time Seen by Provider: 11/09/22 03:38 History of Present Illness Maximum Pain Intensity: 5 This 52-year-old on Eliquis currently receiving treatment for melanoma on chemotherapy presents to the ER complaining of rectal bleeding feeling lightheaded short of breath and lower abdominal pain Location: Generalized Quality: Weak Severity: Moderate Duration: Today Timing: Today Context: Patient had a large bowel movement of straight blood and came in Modifying factors: better with nothing; worse with nothing Patient states he woke up to go the bathroom is all pure bright red blood. He states he feels like he might need to go again. He is on Eliquis. He states his blood counts have been trending down. No history of blood transfusions. He is currently on chemo for melanoma. He feels short of breath with light activity. Patient denies chest pain, fevers, vomiting, diarrhea. Home Medications Medication Instructions Recorded Confirmed Type amlodipine 5 mg-benazepril 10 mg 1 cap PO DAILY 08/25/22 08/25/22 History capsule apixaban 5 mg tablet (Eliquis) 5 mg PO BID 08/25/22 08/25/22 History hydrochlorothiazide 25 mg tablet 25 mg PO DAILY PRN Hypertension 08/25/22 08/25/22 History levothyroxine 200 mcg tablet 200 mcg PO DAILY 08/25/22 08/25/22 History prednisone 10 mg tablet 10 mg PO DAILY 08/25/22 08/25/22 History binimetinib 15 mg tablet (Mektovi) 45 mg PO Q12H 08/26/22 08/26/22 History encorafenib 75 mg capsule 450 mg PO DAILY 08/26/22 08/26/22 History (Braftovi) ferrous sulfate 325 mg (65 mg 325 mg PO QAM #30 tabs 08/27/22 Rx iron) tablet,delayed release pantoprazole 40 mg tablet,delayed 40 mg PO QAM #30 tabs 08/27/22 Rx release Allergies Allergy/AdvReac Type Severity Reaction Status Date / Time No Known Allergies Allergy Unverified 04/30/21 21:58 Past Med/Surg History Medical History Hypertension Melanoma Surgical History Hx of knee surgery Family History Other Family history non-contributory Social History Smoking Status: Never smoker Second Hand Exposure: No; Hx Alcohol Use: Yes Alcohol type: beer Hx Substance Use: No Preferred Language: Lao Communication Ability: Effective Bottling Attendant Required: No Beliefs That Will Affect Care: None marital status: Single Current Living Situation: Alone Feels Safe at Home: Yes Assistive Devices: None Review of Systems A total of 10 systems reviewed and were otherwise negative Physical Exam Vital Signs Vital Signs - 24 hr 11/09/22 03:31 11/09/22 05:29 Temperature 36.7 C 36.7 C Temperature Source Temporal Artery Scan Oral Pulse Rate 132 H Pulse Rate [Right Finger] 120 H Pulse Rhythm Regular Pulse Strength Normal Respiratory Rate 18 18 Respiratory Effort / Characteristics Non-Labored Spontaneous Respiratory Depth Normal Respiratory Pattern Regular Blood Pressure 118/78 Blood Pressure [Right Arm] 172/107 H Blood Pressure Mean 91 Blood Pressure Mean [Right Arm] 128 Blood Pressure Position Sitting Blood Pressure Position [Right Arm] Lying Pulse Oximetry 97 98 Oxygen Delivery Method Room Air Room Air Sepsis Recent Fever Within 48 Hours No Sepsis New/Unexplained Change in Mental Status N/A Sepsis Action Taken by Nursing No Action Required VITALS: Vitals are noted on the nurse's note and reviewed by myself. Vital signs mildly tachycardic. GENERAL: Pleasant gentleman pale appearing, well-developed well-nourished. SKIN: The skin was without rashes, erythema, edema, or bruising. There is no tenting of the skin. Capillary reflex less than 2 seconds. HEAD: Normocephalic atraumatic. EARS: External auditory canals clear, EYES: Pupils equal round and reactive to light and accommodation. Conjunctivae without injection, sclerae without icterus. Extraocular movements intact. NOSE: Patent, turbinates without inflammation or discharge. MOUTH: Mucous membranes moist. Pharynx without erythema or exudate. Uvula midline. Airway patent. Tongue does not deviate. NECK: Supple without nuchal rigidity. No lymphadenopathy. No thyromegaly. Cervical spine is nontender. No JVD. HEART: Mildly tachycardic rate and rhythm LUNGS: Clear to auscultation bilaterally without wheezes, rales or rhonchi. No retractions or accessory muscle use. ABDOMEN: Positive bowel sounds x 4. Normal tympanic percussion. Soft, mildly tender lower abdomen, without masses or organomegaly. Whalen sign negative. No guarding or rebound tenderness. No CVA tenderness MUSCULOSKELETAL: No muscle atrophy, erythema, or edema noted. NEURO: Patient was alert and oriented to person place and time. Normal sensation to light and sharp touch. No focal neurological deficits. Course Administered Medications Discontinued Medications Sodium Chloride (Nss 1000ml) 1,000 mls @ 999 mls/hr IV .Q1H1M JESSICA Stop: 11/09/22 05:00 Last Infusion: 11/09/22 05:28 Dose: 0 mls/hr Documented By: Admin: 11/09/22 04:17 Dose: 999 mls/hr Documented By: CHRISTY Pantoprazole Sodium 80 mg/ (Dextrose) 100 mls @ 400 mls/hr IV NOW ONE Stop: 11/09/22 04:01 Last Infusion: 11/09/22 04:56 Dose: 0 mls/hr Documented By: Admin: 11/09/22 04:17 Dose: 400 mls/hr Documented By: CHRISTY Famotidine (Pepcid 20mg Iv Push) 20 mg in 5 mls @ 2.5 mls/min IV NOW STA Stop: 11/09/22 03:48 Last Admin: 11/09/22 04:18 Dose: 2.5 mls/min Documented By: CHRISTY Ioversol (Optiray 350 100ml) 100 ml IV ONCE ONE Stop: 11/09/22 04:21 Last Admin: 11/09/22 04:20 Dose: 83 ml Documented By: MARTIN Ondansetron HCl (Ondansetron Inj 2 Mg/Ml 2 Ml Vial) 4 mg IV ONE STA Stop: 11/09/22 03:48 Last Admin: 11/09/22 04:18 Dose: 4 mg Documented By: CHRISTY Medical Decision Making Medical Records Attestation: I reviewed the patient's medical records. Home Medications Current Medication List: was personally reviewed by me Laboratory Data Attestation: I reviewed the patient's lab results. Result diagrams: 11/09/22 03:50 11/09/22 03:50 Lab Results 11/09/22 11/09/22 11/09/22 Range/Units 03:50 03:50 03:50 WBC 5.38 (4.8-10.8) K/ul RBC 3.50 L (4.63-6.08) M/uL Hgb 9.4 L (14.0-18.0) g/dl POC Hgb (14.0-18.0) g/dl Hct 29.7 L (40.1-51.0) % POC Hct (42-52) % MCV 84.9 (80.0-100.0) fL MCH 26.9 (25.0-34.0) pg MCHC 31.6 L (32.0-36.0) g/dL RDW Std Deviation 48.4 H (36.4-46.3) fL RDW Coeff of Hieu 15.8 H (11.5-14.5) % Plt Count 298 (130-400) K/uL MPV 9.9 (9.4-12.4) fL Immature Gran % (Auto) 1.5 % Neut % (Auto) 67.7 % Lymph % (Auto) 18.4 % [place] % (Auto) 8.9 % Eos % (Auto) 2.6 % Baso % (Auto) 0.9 % Neut # (Auto) 3.64 (1.4-6.5) K/uL Lymph # (Auto) 0.99 L (1.2-3.4) K/uL [place] # (Auto) 0.48 (0.24-0.82) K/uL Eos # (Auto) 0.14 (0-0.50) K/uL Baso # (Auto) 0.05 (0-0.2) K/uL Immature Gran # (Auto) 0.08 H (0.00-0.02) K/uL PT 10.2 (9.0-12.0) Seconds INR 1.0 (0.9-1.1) APTT 27.4 (21.0-31.0) Seconds PTT Ratio 1.0 POC Sodium (135-144) mmol/L Sodium 138 (136-145) mmol/L POC Potassium (3.3-5.0) mmol/L Potassium 3.4 L (3.5-5.1) mmol/L POC Chloride (101-112) mmol/L Chloride 109 H (98-107) mmol/L Carbon Dioxide 18 L (21-32) mmol/L POC Total CO2 (24-31) mmol/L Anion Gap 11 (3-11) POC Anion Gap (16-25) mmol/L POC BUN (7-18) mg/dl BUN 19 (6-23) mg/dl Creatinine 1.08 (0.6-1.4) mg/dl POC Creatinine (0.6-1.3) mg/dl Est Cr Clr Drug Dosing 107.8 ml/min Est GFR ( Amer) 90.3 ml/min Est GFR (Non-Af Amer) 77.9 ml/min BUN/Creatinine Ratio 17.6 (10-20) Glucose 129 H (70-99(Fasting)) mg/dl POC Glucose (other) (70-99) mg/dl Calcium 8.0 L (8.5-10.1) mg/dl POC Ioniz Calcium Faviola (1.12-1.32) mmol/l Total Bilirubin 0.2 (0.2-1.0) mg/dl AST 11 L (13-39) U/L ALT 7 (7-52) U/L Alkaline Phosphatase 72 (34-104) U/L Troponin I High Sens 5.9 (0-20) pg/ml Total Protein 7.0 (6.0-8.3) gm/dl Albumin 3.0 L (3.4-5.0) gm/dl Globulin 4.0 (2.5-4.0) gm/dl Albumin/Globulin Ratio 0.8 L (0.9-2) SARS-CoV-2, RNA, NAAT (NEGATIVE) Blood Type Antibody Screen 11/09/22 11/09/22 11/09/22 Range/Units 03:53 04:00 04:05 WBC (4.8-10.8) K/ul RBC (4.63-6.08) M/uL Hgb (14.0-18.0) g/dl POC Hgb 10.2 L (14.0-18.0) g/dl Hct (40.1-51.0) % POC Hct 30 L (42-52) % MCV (80.0-100.0) fL MCH (25.0-34.0) pg MCHC (32.0-36.0) g/dL RDW Std Deviation (36.4-46.3) fL RDW Coeff of Hieu (11.5-14.5) % Plt Count (130-400) K/uL MPV (9.4-12.4) fL Immature Gran % (Auto) % Neut % (Auto) % Lymph % (Auto) % [place] % (Auto) % Eos % (Auto) % Baso % (Auto) % Neut # (Auto) (1.4-6.5) K/uL Lymph # (Auto) (1.2-3.4) K/uL [place] # (Auto) (0.24-0.82) K/uL Eos # (Auto) (0-0.50) K/uL Baso # (Auto) (0-0.2) K/uL Immature Gran # (Auto) (0.00-0.02) K/uL PT (9.0-12.0) Seconds INR (0.9-1.1) APTT (21.0-31.0) Seconds PTT Ratio POC Sodium 140 (135-144) mmol/L Sodium (136-145) mmol/L POC Potassium 3.4 (3.3-5.0) mmol/L Potassium (3.5-5.1) mmol/L POC Chloride 110 (101-112) mmol/L Chloride (98-107) mmol/L Carbon Dioxide (21-32) mmol/L POC Total CO2 19 L (24-31) mmol/L Anion Gap (3-11) POC Anion Gap 15.0 L (16-25) mmol/L POC BUN 17 (7-18) mg/dl BUN (6-23) mg/dl Creatinine (0.6-1.4) mg/dl POC Creatinine 1.2 (0.6-1.3) mg/dl Est Cr Clr Drug Dosing ml/min Est GFR ( Amer) ml/min Est GFR (Non-Af Amer) ml/min BUN/Creatinine Ratio (10-20) Glucose (70-99(Fasting)) mg/dl POC Glucose (other) 128 H (70-99) mg/dl Calcium (8.5-10.1) mg/dl POC Ioniz Calcium [place]avi[place] 1.18 (1.12-1.32) mmol/l Total Bilirubin (0.2-1.0) mg/dl AST (13-39) U/L ALT (7-52) U/L Alkaline Phosphatase (34-104) U/L Troponin I High Sens (0-20) pg/ml Total Protein (6.0-8.3) gm/dl Albumin (3.4-5.0) gm/dl Globulin (2.5-4.0) gm/dl Albumin/Globulin Ratio (0.9-2) SARS-CoV-2, RNA, NAAT NEGATIVE (NEGATIVE) Blood Type B Negative Antibody Screen NEGATIVE Imaging Data Attestation: I personally reviewed and interpreted this imaging study as follows: MDM Narrative Prior records/ancillary studies reviewed. Triage Nursing notes reviewed. Additional history obtained from the nurse. The patient's history was concerning for possible gastrointestinal bleeding. Differential diagnosis: Etiologies such as diverticulosis, AVM, coagulopathy, colitis, inflammatory bowel disease, malignancy, Bertha-Leyva tear, esophagitis, peptic ulcer disease, variceal bleed, gastritis, epistaxis, fissure, hemorrhoids, as well as others were entertained. Physical exam: As above. The patients vital signs were mildly tachycardic. ER treatment provided: An order was placed for continuous cardiac monitoring. The monitor shows a rate of 60-1 50 with a sinus rhythm. IV fluids, Pepcid, Protonix, type and screen, i-STAT Patient was consented to blood if needed. On reassessment the patient felt better. Diagnostics interpreted by me: ECG: Ordered for symptomatic anemia EKG: Normal sinus, normal intervals, Q waves in the inferior leads, impression sinus tachycardia interpreted by myself I think arrhythmia is unlikely. EKG shows normal sinus rhythm with no interval abnormalities such as QT prolongation or WPW. There are no findings to suggest Brugada syndrome. Cardiac monitoring in the emergency department reveals no tachycardic or bradycardic dysrhythmia. Hypertrophic cardiomyopathy was considered but there are no clear historical elements pointing toward this. EKG is not suggestive. The QRS voltage is not extremely large The labs revealed anemia Imaging studies: Preliminary Findings Only See Final Report For Complete Findings CT ABDOMEN & PELVIS With Contrast: Compared to a 08/25/2022 CT scan Interval enlargement of small pericecal lymph nodes. Possible mild wall thickening and irregularity of the cecal wall. Normal appendix. No conclusive mass or inflammation. Further evaluation with colonoscopy recommended. Small amount of dense fluid in the distal colon may represent blood products. Consider CT angiography if there is a clinical concern for active hemorrhage. Radiologist: Chang Che MD Consultation: A consultation was placed with the hospitalist. The case was discussed and diagnostics were reviewed. The patient was evaluated in the ER for further treatment. This appears to be consistent with GI bleed. H&H were about baseline for patient. He was typed and consented for blood if needed. CT was reviewed. Medicine is consulted. He was medicated as above. He had no rectal bleeding while in the ER. He will be evaluated for admission.. By the evaluation outlined above emergent etiologies such as esophageal perforation, peptic ulcer disease, variceal bleed, gastritis, epistaxis, inflammatory bowel disease, as well as others were deemed relatively unlikely. The pt informed about the findings as listed above. All questions were answered and pleased with the treatment. The chart was completed utilizing Xero Speech voice recognition software. Grammatical errors, random word insertions, pronoun errors, and incomplete sentences are an occassional consequence of this system due to software limitations, ambient noise, and hardware issues. Any formal questions or concerns about the content, text, or information contained within the body of this dictation should be directly addressed to the physician assistant strength coach for clarification. Impression & Plan Acute GI bleeding, Anemia Discharge Plan Visit Data Chief Complaint: GI Assessment Stated Complaint: BLOOD IN STOOL ED Provider: Chris Garcia ED Midlevel Provider: Wen Chappell Discharge Problem: Acute GI bleeding, Anemia Patient Disposition: Being Evaluated by Hospitalist Condition: Fair Forms Stand Alone Forms: My [email or web address] Prescriptions Prescriptions: No Action prednisone 10 mg Tablet 10 mg PO DAILY amlodipine-benazepril 5-10 mg capsule 1 cap PO DAILY levothyroxine 200 mcg tablet 200 mcg PO DAILY hydrochlorothiazide 25 mg tablet 25 mg PO DAILY PRN (Reason: Hypertension) Eliquis 5 mg Tablet 5 mg PO BID Braftovi 75 mg Capsule 450 mg PO DAILY Mektovi 15 mg Tablet 45 mg PO Q12H ferrous sulfate 325 mg (65 mg iron) Tablet,Delayed Release (Dr/Ec) 325 mg PO QAM Qty: 30 0RF pantoprazole 40 mg Tablet,Delayed Release (Dr/Ec) 40 mg PO QAM Qty: 30 0RF Referrals Referrals: Jayson Parks MD [Primary Care Provider] -
[2022-11-09] MEDS ORDERED: SODIUM CHLORIDE 0.9% 1000ML 1,000 ML IV SCH (04:00)
[2022-11-09 04:06] LABS: iSTAT Creatinine 1.2 mg/dl (0.6-1.3); iSTAT Hemoglobin 10.2 g/dl (14.0-18.0); iSTAT Ionized Calcium 1.18 mmol/l (1.12-1.32); iSTAT Potassium 3.4 mmol/L (3.3-5.0)
[2022-11-09 04:08] LABS: Basophils # (auto) 0.05 K/uL (0-0.2); Basophils % (auto) 0.9 %; Eosinophils # (auto) 0.14 K/uL (0-0.50); Eosinophils % (auto) 2.6 %; Hematocrit (blood only) 29.7 % (40.1-51.0); Hemoglobin 9.4 g/dl (14.0-18.0); Immature Granulocytes # (auto) 0.08 K/uL (0.00-0.02); Immature Granulocytes % (auto) 1.5 %; Lymphocytes # (auto) 0.99 K/uL (1.2-3.4); Lymphocytes % (auto) 18.4 %; Mean Corpuscular Hemoglobin 26.9 pg (25.0-34.0); Mean Corpuscular Hgb Conc 31.6 g/dL (32.0-36.0); Mean Corpuscular Volume 84.9 fL (80.0-100.0); Mean Platelet Volume 9.9 fL (9.4-12.4); Monocytes # (auto) 0.48 K/uL (0.24-0.82); Monocytes % (auto) 8.9 %; Neutrophils # (auto) 3.64 K/uL (1.4-6.5); Neutrophils % (auto) 67.7 %; Platelet Count 298 K/uL (130-400); RDW Coefficient of Variation 15.8 % (11.5-14.5); RDW Standard Deviation 48.4 fL (36.4-46.3); White Blood Count 5.38 K/ul (4.8-10.8)
[2022-11-09 04:20] LABS: Partial Thromboplastin Time 27.4 Seconds (21.0-31.0); Prothrombin Time 10.2 Seconds (9.0-12.0)
[2022-11-09] MEDS ORDERED: OPTIRAY 350 100ml IV ONE (04:20)
[2022-11-09 04:34] LABS: Troponin I High Sensitivity 5.9 pg/ml (0-20)
[2022-11-09 04:58] LABS: Albumin Globulin Ratio 0.8 (0.9-2); BUN Creatinine Ratio 17.6 (10-20); Bilirubin,Total 0.2 mg/dl (0.2-1.0); Creatinine Clr Calc Pharmacy 107.8 ml/min; Est GFR (African American) 90.3 ml/min; Est GFR (Non-African American) 77.9 ml/min; Potassium 3.4 mmol/L (3.5-5.1)
--- NOTE | 2022-11-09 07:36 | CT Scan Report ---
ABDOMEN AND PELVIS CT WITH IV CONTRAST CT DOSE: 2043.80 mGy.cm HISTORY: Acute lower abdominal pain with GI bleed lower abd pain, gi bleed TECHNIQUE: Multiaxial CT images of the abdomen and pelvis were performed following the IV administrat ion of 83 cc of Optiray, A dose lowering technique was utilized adhering to the principles of ALARA. COMPARISON STUDY: CT 08/25/2022 FINDINGS: The imaged lung bases appear clear. No pneumatosis or pneumoperitoneum. The spleen is mildl y enlarged measuring up to 16 cm in length. Unremarkable pancreas, contracted gallbladder, adrenal gl ands and liver. Patency of the hepatic and portal veins. Mild nonspecific bilateral perinephric stranding. No renal or ureteral calculi or hydronephrosis iden tified. Mild urinary bladder wall thickening with partial distention. Atherosclerosis of the aorta wi thout aneurysm. No bowel obstruction. Debris-filled stomach suggestive of recent meal. There is no si gnificant colonic diverticular disease. There is mild wall thickening of the cecum with partial diste ntion. Normal appendix. Subcentimeter pericecal lymph nodes measure up to 8 mm. Trace pericecal infla mmation. Unremarkable soft tissues. Subcutaneous lesion of the left gluteal tissues is redemonstrated measuring 3.6 cm, possibly an injection granuloma. Degenerative changes of the spine, pelvis and hip s. IMPRESSION: 1. No bowel obstruction or pneumoperitoneum. Normal appendix. 2. Mild wall thickening of the cecum may be secondary to partial distention. There is however trace p ericecal inflammation with adjacent subcentimeter lymph nodes. Findings may be secondary to a mild co litis, however could be correlated with colonoscopy to exclude an underlying lesion. 3. Splenomegaly. 4. Additional findings as above. ACT 112: Negative or not required by law. The above report was generated using voice recognition software. It may contain grammatical, syntax o r spelling errors. Electronically signed by: Lorne Moore M.D. 11/09/2022 7:35 AM
--- NOTE | 2022-11-09 07:44 | History and Physical Report ---
DATE OF ADMISSION: 11/09/2022. CHIEF COMPLAINT: Bright red blood per rectum. HISTORY OF PRESENT ILLNESS: This is a 52-year-old male with past medical history significant for malignant metastatic melanoma recurrence, follows with [facility], currently on chemo on encorafenib and binimetinib, history of DVT and PE, on Eliquis. Says last blood clot was about 3-4 months ago, having vitiliginous patches from his chemo, history of hypertension, gout, hypothyroidism, hyperlipidemia, chronic kidney disease stage IV, presents with bright red blood per rectum. The patient recently had EGD and colonoscopy, which were unremarkable as per the patient. Around 3:00 a.m. in the morning, he went to bathroom and in the commode he noticed bright red per rectum and also some lower abdominal discomfort, which prompted him to come to the ER. Currently, resting comfortably and hemodynamically stable. Denies any chest pain. No shortness of breath, no nausea, no vomiting. Normal bladder movements. Has some swelling in the legs. No headache, no dizziness, no blurred vision, no earache, no runny nose, no sore throat, no cough, no difficulty swallowing. Appetite is okay. ALLERGIES: No known drug allergies. PAST MEDICAL HISTORY: As mentioned above. PAST SURGICAL HISTORY: Colonoscopy, EGD, knee arthroscopy, tonsillectomy, vasectomy. MEDICATIONS: The patient is on amlodipine/benazepril 5/10 mg daily, Eliquis 5 mg p.o. b.i.d., hydrochlorothiazide 25 mg p.o. daily p.r.n. for hypertension. The patient is currently on Mektovi and encorafenib for his melanoma, levothyroxine 200 mcg p.o. daily, prednisone 10 mg p.o. daily. FAMILY HISTORY: Significant for mother has asthma, aunt has colon cancer, uncle has diabetes, maternal grandfather had stroke. SOCIAL HISTORY: Single, no smoking. Alcohol, used to drink regularly about one year ago. Currently, drinking only occasionally. No drug use. REVIEW OF SYSTEMS: As per HPI. Rest of the review of systems is negative. PHYSICAL EXAMINATION: GENERAL: The patient is obese, not in acute distress. VITAL SIGNS: Temperature 36.7, pulse 120, respiratory rate 18, blood pressure 172/107, oxygen 98% on room air. HEENT: Pupils equal, round and reactive to light. Oral mucosa moist. NECK: No JVD, no neck masses. CARDIOVASCULAR: S1 and S2 heard. Tachycardia. No murmurs. RESPIRATORY SYSTEM: Normal AP diameter. No accessory muscle use. No wheezing or crackles. ABDOMEN: Soft, bowel sounds present, nontender. Mild lower abdominal discomfort. No guarding, no rigidity, no distention. CENTRAL NERVOUS SYSTEM: Cranial nerves II-XII grossly intact, nonfocal. EXTREMITIES: Mild pedal edema present. SKIN: Diffuse vitiliginous patches seen. LABORATORY DATA: Hemoglobin was 9.4, hematocrit 29.7, platelets 298. PT 10.2, INR 1, APTT 27.4. Sodium 138, potassium 3.4, chloride 109, CO2 of 18, BUN 19, creatinine 1.08, serum glucose 129, calcium 8, ionized calcium 1.18. Total bilirubin 0.2, AST 11, ALT 7, alkaline phosphatase 72. Troponin I high sensitivity 5.9. SARS-CoV-2 rapid test negative. EKG: Sinus tachycardia at a rate of 125, no acute ST changes seen. IMAGING DATA: CT abdomen and pelvis without contrast, interval enlargement of small pericecal lymph nodes, possible mild wall thickening and irregularity of the cecal wall. Normal appendix. . Further evaluation with colonoscopy recommended. Small amount of dense fluid in the distal colon. May represent blood products. Consider CT angiogram, if suspicion for active hemorrhage. ASSESSMENT AND PLAN: This is a 52-year-old male who presents with bright red blood per rectum. 1. Bright red blood per rectum: History of gastrointestinal bleed in the past, but not as severe as today per patient and at that time had EGD and colonoscopy, unremarkable as per the patient. We are holding his prednisone, hold his chemotherapy,encorafenib and binimetinib, which can cause hemorrhage. Keep him n.p.o., IV fluids, started on Protonix drip. Blood consent obtained. We will get H and H q. 6 hours. Currently, hemoglobin is 9.4, hemoglobin was 8.9 on 08/27/2022. GI consult. Closely monitor in the tele floor. 2. History of hypertension: Continue his amlodipine/benazepril. Placed on IV hydralazine p.r.n. 3. Hypothyroidism: On Synthroid. 4. Melanoma: Holding his chemo for now. 5. Chronic kidney disease: Presently with creatinine of 1.08. Will follow the labs. 6. Hx of DVT and PE Holding eliquis. To restart as soon as possible. 7. Deep venous thrombosis prophylaxis: Sequential compression devices. DISPOSITION: Closely monitor in the tele floor. Level 1 full code. Expect to discharge home and follow with his family doctor. Job ID: [id number] MTDD
[2022-11-09] MEDS ORDERED: SODIUM CHLORIDE 0.9% 250 ML IV PRN (08:05)
[2022-11-09] MEDS ORDERED: NITROGLYCERIN SL 0.4 MG/TAB TAB SL PRN (08:05)
[2022-11-09] MEDS ORDERED: LABETALOL HCL IV 5 MG/ML 20ML IV PRN (08:05)
[2022-11-09] MEDS ORDERED: ENALAPRIL MALEATE 10 MG TAB PO SCH (09:00)
[2022-11-09] MEDS ORDERED: amLODIPine BESYLATE 5 MG TAB PO SCH (09:00)
[2022-11-09] MEDS: LEVOTHYROXINE SODIUM 200 MCG TABLET PO SCH (09:05)
[2022-11-09] MEDS: PANTOprazole 40 MG in DEXTROSE 5% 100 ML IV SCH ×3 (09:05→19:18)
[2022-11-09] MEDS: SODIUM CHLORIDE 0.9% 1000ML 1,000 ML IV SCH ×3 (09:06→23:35)
[2022-11-09] MEDS: POTASSIUM CHLORIDE / WTR 10 MEQ/100 ML PLCT IV SCH ×2 (09:09→10:23)
[2022-11-09 09:14] LABS: Basophils # (auto) 0.05 K/uL (0-0.2); Basophils % (auto) 0.8 %; Eosinophils % (auto) 1.6 %; Hematocrit (blood only) 26.4 % (40.1-51.0); Hemoglobin 8.2 g/dl (14.0-18.0); Immature Granulocytes # (auto) 0.06 K/uL (0.00-0.02); Immature Granulocytes % (auto) 0.9 %; Lymphocytes # (auto) 0.54 K/uL (1.2-3.4); Lymphocytes % (auto) 8.5 %; Mean Corpuscular Hemoglobin 26.5 pg (25.0-34.0); Mean Corpuscular Hgb Conc 31.1 g/dL (32.0-36.0); Mean Corpuscular Volume 85.4 fL (80.0-100.0); Monocytes # (auto) 0.57 K/uL (0.24-0.82); Monocytes % (auto) 8.9 %; Neutrophils # (auto) 5.05 K/uL (1.4-6.5); Neutrophils % (auto) 79.3 %; Platelet Count 253 K/uL (130-400); RDW Coefficient of Variation 15.8 % (11.5-14.5); RDW Standard Deviation 49.6 fL (36.4-46.3); Red Blood Count 3.09 M/uL (4.63-6.08); White Blood Count 6.37 K/ul (4.8-10.8)
[2022-11-09 09:34] LABS: BUN Creatinine Ratio 18.3 (10-20); Calcium 8.4 mg/dl (8.5-10.1); Creatinine Clr Calc Pharmacy 111.9 ml/min; Est GFR (African American) 94.6 ml/min; Est GFR (Non-African American) 81.6 ml/min; Magnesium 1.6 mg/dl (1.7-2.4)
--- NOTE | 2022-11-09 11:53 | Gastrointestinal Consultation ---
Date of Consultation November 09, 2022 Assessment & Plan (1) Acute GI bleeding: (2) Anemia: Plan GI bleeding in the setting of melanoma and eliquis use, rule out PUD or further metastasis recs: Proceed with EGD. risks/benefits and procedure discussed with patient, who agrees to proceed supportive care, IVFs Thank you for allowing me to participate in the care of this patient. History of Present Illness Attending Physician: Jules Vega MD History of Present Illness 52 yo male with hx malignant metastatic melanoma, on chemo and DVT, PE on eliquis here with hematochezia. He had EGD and colonoscopy in 07/2022 for iron deficiency anemia and no significant findings were noted. He notes lower abdominal pain and hematochezia at home. Hgb noted to be 8.2 from 9.4, normal BUN. VSS. CBC and CMP reviewed. Allergies Allergy/AdvReac Type Severity Reaction Status Date / Time No Known Allergies Allergy Unverified 04/30/21 21:58 Home Medications Medication Instructions Recorded Confirmed Type amlodipine 5 mg-benazepril 10 mg 1 cap PO DAILY 08/25/22 08/25/22 History capsule apixaban 5 mg tablet (Eliquis) 5 mg PO BID 08/25/22 08/25/22 History hydrochlorothiazide 25 mg tablet 25 mg PO DAILY PRN Hypertension 08/25/22 08/25/22 History levothyroxine 200 mcg tablet 200 mcg PO DAILY 08/25/22 08/25/22 History prednisone 10 mg tablet 10 mg PO DAILY 08/25/22 08/25/22 History binimetinib 15 mg tablet (Mektovi) 45 mg PO Q12H 08/26/22 08/26/22 History encorafenib 75 mg capsule 450 mg PO DAILY 08/26/22 08/26/22 History (Braftovi) ferrous sulfate 325 mg (65 mg 325 mg PO QAM #30 tabs 08/27/22 Rx iron) tablet,delayed release pantoprazole 40 mg tablet,delayed 40 mg PO QAM #30 tabs 08/27/22 Rx release Patient History Medical History Hypertension Melanoma Surgical History Hx of knee surgery Family History Other Family history non-contributory Social History Smoking Status: Never smoker Second Hand Exposure: No; Hx Alcohol Use: No Hx Substance Use: No Preferred Language: Kyrgyz Communication Ability: Effective Sql Engineer Required: No Beliefs That Will Affect Care: None marital status: Single Current Living Situation: Alone Feels Safe at Home: Yes Safety Concerns: Feels Safe At This Time Assistive Devices: None Review of Systems Constitutional: no fever, no chills and no weight loss Eyes: as per Subjective / HPI Ear, Nose, Mouth, Throat: as per Subjective / HPI Respiratory: no dyspnea and no dyspnea on exertion Cardiovascular: no chest pain and no palpitations Gastrointestinal: as per Subjective / HPI Musculoskeletal: no joint pain and no swelling Integumentary: no rash and no lesions Neurologic: no numbness and no paresthesia Psychiatric: no depression and no anxiety Endocrine: no fatigue Hematologic / Lymphatic: no easy bleeding and no easy bruising Physical Exam Constitutional: WD/WN, vitals as above Eyes: EOM intact bilaterally Neck: normal visual inspection Respiratory: normal respiratory effort, lungs clear to auscultation Cardiovascular: RRR, no murmur, no edema Gastrointestinal (Abdomen): Inspection/Auscultation: abdomen normal to inspection; abdomen not distended Percussion/Palpation: abdomen soft; abdomen nontender and no hepatosplenomegaly Musculoskeletal: Extremities: no cyanosis Gait: normal gait Skin: no rashes, warm and dry Neurologic: moves all extremities Psychiatric: A+Ox3, euthymic affect Results & Data ([facility]) Vital Signs (Past 12 Hours) Vital Signs Temp Pulse Pulse Resp BP BP Pulse Ox 11/09/22 11:30 36.9 C 111 H 18 144/96 H 96 11/09/22 10:52 36.7 C 109 H 20 138/98 95 11/09/22 07:26 11/09/22 07:25 80 20 132/99 98 11/09/22 06:43 112 H 18 147/100 H 98 11/09/22 05:29 36.7 C 120 H 18 172/107 H 98 11/09/22 03:31 36.7 C 132 H 18 118/78 97 O2 Del Method 11/09/22 11:30 Room Air 11/09/22 10:52 Room Air 11/09/22 07:26 Room Air 11/09/22 07:25 11/09/22 06:43 Room Air 11/09/22 05:29 Room Air 11/09/22 03:31 Room Air PG Care Time/CCT Total # of Minutes Spent Total Time Spent with Patient: Total time spent is greater than 50% in coordination of care (as documented) at patient's floor/unit and/or counseling patient: Coding Level of Care Code 70610 Inpt Consult Level 4 Diagnoses Acute GI bleeding K92.2 Anemia D64.9
--- NOTE | 2022-11-09 13:01 | Anesthesiology Consultation ---
Date of Service November 09, 2022 Assessment & Plan Chart Review Chart Review: Acceptable Risk for Surgery and Patient NOT seen in Pre Admission Testing Consults Requested none ASA ASA3 Proposed Anesthesia Anesthesia Type: MAC Risk / Benefits Reviewed With: PT / POA / Parent / Guardian, Accepts Plan and Informed Consent Obtained History Surgery Operation Date: 11/09/22 17:00 Proposed Procedures p Esophagogastroduodenoscopy Dr. Richarsd - Brandon Richards MD Height/Weight Height: 5 ft 10 in Weight: 127.006 kg Allergies Allergy/AdvReac Type Severity Reaction Status Date / Time No Known Allergies Allergy Unverified 11/09/22 12:19 Medications Home Medications Medication Instructions Recorded Confirmed Last Taken amlodipine 5 mg-benazepril 10 mg 1 cap PO DAILY 08/25/22 08/25/22 Unknown capsule apixaban 5 mg tablet (Eliquis) 5 mg PO BID 08/25/22 08/25/22 Unknown hydrochlorothiazide 25 mg tablet 25 mg PO DAILY PRN Hypertension 08/25/22 08/25/22 Unknown levothyroxine 200 mcg tablet 200 mcg PO DAILY 08/25/22 08/25/22 Unknown prednisone 10 mg tablet 10 mg PO DAILY 08/25/22 08/25/22 Unknown binimetinib 15 mg tablet (Mektovi) 45 mg PO Q12H 08/26/22 08/26/22 Unknown encorafenib 75 mg capsule 450 mg PO DAILY 08/26/22 08/26/22 Unknown (Braftovi) ferrous sulfate 325 mg (65 mg 325 mg PO QAM #30 tabs 08/27/22 Unknown iron) tablet,delayed release pantoprazole 40 mg tablet,delayed 40 mg PO QAM #30 tabs 08/27/22 Unknown release Active Medications Generic Name Dose Route Start Last Admin Trade Name Freq PRN Reason Stop Dose Admin Sodium Chloride 1,000 mls @ 125 mls/hr 11/09/22 08:05 11/09/22 09:06 Nss 1000ml IV 12/09/22 08:04 125 mls/hr .Q8H JESSICA Administration Pantoprazole Sodium 40 mg/ 100 mls @ 20 mls/hr 11/09/22 08:05 11/09/22 09:05 Dextrose IV 12/09/22 08:04 8 mg/hr Q5H JESSICA 20 mls/hr Administration 8 MG/HR Levothyroxine Sodium 200 mcg 11/09/22 06:30 11/09/22 09:05 Levothyroxine Sodium 200 Mcg Tablet PO 12/09/22 06:29 200 mcg DAILYBB JESSICA Administration NPO Date Last Intake of Fluids: 11/09/22 Time Last Intake of Fluids: 03:15 Last Intake of Fluids Comment: ate ice chips at 1200 Date Last Intake of Solids: 11/08/22 Time Last Intake of Solids: 19:30 Past Medical History Medical History Hypertension Melanoma Exercise / Class Metabolic Activity II 4-5 Yardwork/Stairs/Walk up hill Past Family History Family History Other Family history non-contributory Past Surgical History Surgical History Hx of knee surgery Past Anesthesia History No Hx of Anesthesia Complications and No Family Hx of Anesthesia Complications History of PONV No Hx of PONV and No Hx of Motion Sickness Social History Smoking Status: Never smoker Hx Alcohol Use: No Alcohol type: beer alcohol intake frequency: holidays/special occasions only Hx Substance Use: No substance use type: does not use Physical Exam Vital Signs Last Vital Signs Temp 37.1 C 11/09/22 12:20 Pulse 107 H 11/09/22 12:20 Resp 18 11/09/22 12:20 BP 179/123 H 11/09/22 12:20 Pulse Ox 98 11/09/22 12:20 O2 Del Method 11/09/22 12:20 Constitutional + obese ENMT Mouth: no dentition abnormality Thyromental Distance: > or= 3.5 Finger Breadths Mallampati Class: II Neck normal visual inspection Respiratory normal respiratory effort Auscultation: lungs clear to auscultation bilaterally Cardiovascular Rate/Rhythm: regular rate and regular rhythm Psychiatric Orientation: alert Testing Laboratory Results 11/09/22 08:46 11/09/22 08:46 PT 10.2 Seconds (9.0-12.0) 11/09/22 03:50 INR 1.0 (0.9-1.1) 11/09/22 03:50 APTT 27.4 Seconds (21.0-31.0) 11/09/22 03:50 Blood Type B Negative 11/09/22 04:00 Antibody Screen NEGATIVE 11/09/22 04:00 11/09/22 03:53 POC Glucose (other) 128 H
--- NOTE | 2022-11-09 13:12 | Hospitalist Progress Note ---
Date of Service November 09, 2022 Assessment & Plan (1) Acute GI bleeding: Plan: ASSESSMENT AND PLAN: This is a 52-year-old male who presents with bright red blood per rectum. 1. Bright red blood per rectum -- In the setting of Eliquis History of peptic ulcer disease, gastritis Holding Eliquis Monitor hemoglobin, transfuse if hemoglobin below 7 Protonix drip, IV fluids Hold blood pressure medications Continue prednisone 10 mg daily GI consulted Discussed with patient's oncologist at [facility] Dr. Patterson, does not recommend IVC filter placement In the setting of Eliquis History of peptic ulcer disease, gastritis Holding Eliquis Monitor hemoglobin, transfuse if hemoglobin below 7 Protonix drip, IV fluids Hold blood pressure medications Continue prednisone 10 mg daily GI consulted Discussed with patient's oncologist at [facility] Dr. Patterson, does not recommend IVC filter placement 2. History of hypertension: HOLD amlodipine/benazepril 3. Hypothyroidism: On Synthroid. 4. Melanoma: may continue chemo meds as per Oncologist 5. Chronic kidney disease: crea stable at 1.04 6. Hx of DVT and PE Hold Eliquis, IVC filter not recommended by hematology/oncologist at [facility] 7. Deep venous thrombosis prophylaxis: Sequential compression devices. plan of care discussed with patient in detail and at length all questions answered he is understanding, agreeable, comfortable with the plan of care Admission and Anticipated Discharge Date Admission Date: November 09, 2022 Subjective Follow-up for rectal bleeding, etc. Seen resting in bed, not in distress, comfortable States he feels okay overall No recurrence of GI bleed since 2:30 AM No abdominal pain, nausea vomiting, fevers or chills, chest pain, shortness of breath, dizziness next No other symptoms Review of Systems Review of Systems: all noted and negative except for above Physical Exam Physical Exam: General- oriented x 3, not in distress, speaks in sentences with no effort or accessory muscle use Eyes- No icterus Neck- no JVD Lungs- clear breath sounds bilaterally, No crackles or wheezing Heart- normal rate, regular rhythm; no murmurs Abdomen- normal bowel sounds, nondistended, soft, nontender Extremities- trace pretibial edema, no calf tenderness Neuro- alert, oriented x 3; no gross focal neurologic deficits Skin- warm & dry Results & Data Results & Data ([facility]) Vital Signs (Past 12 Hours) Vital Signs Temp Pulse Pulse Resp BP BP Pulse Ox 11/09/22 12:20 37.1 C 107 H 18 179/123 H 98 11/09/22 11:30 36.9 C 111 H 18 144/96 H 96 11/09/22 10:52 36.7 C 109 H 20 138/98 95 11/09/22 07:26 11/09/22 07:25 80 20 132/99 98 11/09/22 06:43 112 H 18 147/100 H 98 11/09/22 05:29 36.7 C 120 H 18 172/107 H 98 11/09/22 03:31 36.7 C 132 H 18 118/78 97 O2 Del Method 11/09/22 12:20 Room Air 11/09/22 11:30 Room Air 11/09/22 10:52 Room Air 11/09/22 07:26 Room Air 11/09/22 07:25 11/09/22 06:43 Room Air 11/09/22 05:29 Room Air 11/09/22 03:31 Room Air all noted and reviewed including below
[2022-11-09] MEDS ORDERED: MAGNESIUM SULFATE / D5W 1 GM/100 ML BAG IV ONE (13:30)
--- NOTE | 2022-11-09 14:35 | GI REPORT ---
Patient Name: Nura Corey Procedure Date: 11/09/2022 1:34 PM Date of : 1970 Admit Type: Inpatient Age: 52 Gender: Male Attending MD: Brandon Richards MD, Procedure: Upper GI endoscopy Providers: Brandon Richards MD Referring MD: Jules Vega Indications: Hematochezia Medicines: Monitored Anesthesia Care Complications: No immediate complications. Estimated blood loss: None. Estimated Blood Loss: Estimated blood loss: none. Procedure: Pre-Anesthesia Assessment: - Prior Anticoagulants: The patient has taken no anticoagulant or antiplatelet agents. - ASA Grade Assessment: II - A patient with mild systemic disease. After obtaining informed consent, the endoscope was passed under direct vision. Throughout the procedure, the patient's blood pressure, pulse, and oxygen saturations were monitored continuously. The Endoscope was introduced through the mouth, and advanced to the second part of duodenum. The upper GI endoscopy was accomplished without difficulty. The patient tolerated the procedure well. Findings: The examined esophagus was normal. One non-bleeding linear gastric ulcer with no stigmata of bleeding was found in the gastric antrum. Biopsies were taken with a cold forceps for Helicobacter pylori testing. Estimated blood loss: none. The duodenal bulb and second portion of the duodenum were normal. A large amount of food (residue) was found in the entire examined stomach. Impression: - Normal esophagus. - Non-bleeding gastric ulcer with no stigmata of bleeding. Biopsied. - Normal duodenal bulb and second portion of the duodenum. Recommendation: - [facility]. - Advance diet as tolerated today. - Await pathology results. -protonix 40 mg daily for at least 3 months, avoid NSAIDs Brandon Richards MD 11/09/2022 2:35:07 PM This report has been signed electronically. Note Initiated On: 11/09/2022 1:34 PM Number of Addenda: 0 I attest to the content of the Intraoperative Record and orders documented therein, exceptions below {[id number]}
[2022-11-09 14:57] LABS: Hematocrit (blood only) 26.7 % (40.1-51.0); Hemoglobin 8.5 g/dl (14.0-18.0)
[2022-11-09] MEDS: predniSONE 10 MG TABLET PO SCH (15:00)
--- NOTE | 2022-11-09 15:00 | Anesthesiology Progress Note ---
Date of Service November 09, 2022 Anesthesia Post Procedure Vital Signs Vital Signs: Temp Pulse Pulse Resp BP BP Pulse Ox 11/09/22 14:33 100 H 16 148/91 H 99 11/09/22 14:19 103 H 16 134/86 97 11/09/22 14:05 111 H 12 105/70 96 11/09/22 12:20 37.1 C 107 H 18 179/123 H 98 11/09/22 11:30 36.9 C 111 H 18 144/96 H 96 11/09/22 10:52 36.7 C 109 H 20 138/98 95 11/09/22 07:26 11/09/22 07:25 80 20 132/99 98 11/09/22 06:43 112 H 18 147/100 H 98 11/09/22 05:29 36.7 C 120 H 18 172/107 H 98 11/09/22 03:31 36.7 C 132 H 18 118/78 97 O2 Del Method 11/09/22 14:33 Room Air 11/09/22 14:19 Room Air 11/09/22 14:05 Room Air 11/09/22 12:20 Room Air 11/09/22 11:30 Room Air 11/09/22 10:52 Room Air 11/09/22 07:26 Room Air 11/09/22 07:25 11/09/22 06:43 Room Air 11/09/22 05:29 Room Air 11/09/22 03:31 Room Air Transfer of Care Handoff Completed per policy Notes Mental Status: alert / awake / arousable Patient Amnestic to Procedure: Yes Nausea / Vomiting: adequately controlled Pain: adequately controlled Airway Patency, RR, SpO2: stable & adequate BP & HR: stable & adequate Hydration State: stable & adequate Anesthetic Complications: no major complications apparent
--- NOTE | 2022-11-09 15:14 | Electrocardiogram Report ---
Test Reason : Blood Pressure : / mmHG Vent. Rate : 125 BPM Atrial Rate : 125 BPM P-R Int : 156 ms QRS Dur : 088 ms QT Int : 306 ms P-R-T Axes : 037 -17 038 degrees QTc Int : 441 ms Sinus tachycardia Incomplete right bundle branch block Abnormal ECG When compared with ECG of 27-AUG-2022 05:11, Vent. rate has increased BY 58 BPM Otherwise no significant change Confirmed by Osorio Munroe ([id number]) on 11/09/2022 3:13:43 PM Referred By: REFERRED SELF Confirmed By:Osorio Munroe
[2022-11-09 19:58] LABS: Hematocrit (blood only) 25.1 % (40.1-51.0); Hemoglobin 7.8 g/dl (14.0-18.0)
[2022-11-09] MEDS: DOCUSATE SODIUM 100 MG CAP PO SCH (21:01)
[2022-11-10] MEDS: PANTOprazole 40 MG in DEXTROSE 5% 100 ML IV SCH ×4 (00:24→10:02)
[2022-11-10 02:57] LABS: Hematocrit (blood only) 23.8 % (40.1-51.0); Hemoglobin 7.5 g/dl (14.0-18.0)
[2022-11-10] MEDS: LEVOTHYROXINE SODIUM 200 MCG TABLET PO SCH (06:13)
[2022-11-10] MEDS: SODIUM CHLORIDE 0.9% 1000ML 1,000 ML IV SCH (06:54)
[2022-11-10] MEDS: predniSONE 10 MG TABLET PO SCH (08:00)
[2022-11-10] MEDS: DOCUSATE SODIUM 100 MG CAP PO SCH (08:00)
[2022-11-10] MEDS: ACETAMINOPHEN 325 MG TAB PO PRN ×2 (08:01→20:01)
--- NOTE | 2022-11-10 10:01 | Gastroenterology Progress Note ---
Date of Service November 10, 2022 Assessment & Plan (1) Acute GI bleeding: (2) Anemia: (3) Gastric ulcer: Plan 1. Advance diet as tolerated. 2. Stop PPI ggt and start Pantoprazole 40 mg IV BID, then Pantoprazole 40 mg daily upon discharge. 3. GIB scan if significant drop in H&H or overt GIB as colonoscopy last month was unrevealing. Consider outpt VCE. 4. Supportive care per primary team. Admission and Anticipated Discharge Date Admission Date: November 09, 2022 Subjective Patient is a status post EGD yesterday with findings of clean-based gastric ulc er and food bezoar. He reports some lower abdominal pain but has not passed a bowel movement since admission. He remains on a clear liquid diet and PPI ggt. Pathology pending. No overt GIB. Review of Systems Constitutional: no fatigue Respiratory: no cough and no dyspnea Cardiovascular: no chest pain and no palpitations Gastrointestinal: as per Subjective / HPI Physical Exam Constitutional: WD/WN, vitals as above Respiratory: normal respiratory effort, lungs clear to auscultation Cardiovascular: RRR, no murmur, no edema Gastrointestinal (Abdomen): normal bowel sounds, soft, nontender, no hepatosplenomegaly Psychiatric: A+Ox3, euthymic affect Results & Data Results & Data ([facility]) Vital Signs (Past 12 Hours) Vital Signs Temp Pulse Pulse Resp BP Pulse Ox O2 Del Method 11/10/22 07:56 36.9 C 91 H 20 142/92 H 96 Room Air 11/10/22 02:47 36.6 C 88 17 133/81 97 Room Air 11/09/22 23:48 98 H 11/09/22 22:59 36.6 C 90 18 132/77 96 Room Air Laboratory Results Abnormal lab results 11/09/22 11/09/22 11/10/22 Range/Units 14:49 19:50 02:29 Hgb 8.5 L 7.8 L 7.5 L (14.0-18.0) g/dl Hct 26.7 L 25.1 L 23.8 L (40.1-51.0) % PG Care Time/CCT Total # of Minutes Spent Total Time Spent with Patient: Total time spent is greater than 50% in coordination of care (as documented) at patient's floor/unit and/or counseling patient: Coding Level of Care Code 19409 Subseq Hosp Care Lvl 3 Diagnoses Acute GI bleeding K92.2 Anemia D64.9 Gastric ulcer K25.9
[2022-11-10 11:29] LABS: Basophils # (auto) 0.04 K/uL (0-0.2); Basophils % (auto) 0.6 %; Eosinophils # (auto) 0.14 K/uL (0-0.50); Eosinophils % (auto) 2.1 %; Hemoglobin 8.2 g/dl (14.0-18.0); Immature Granulocytes # (auto) 0.03 K/uL (0.00-0.02); Immature Granulocytes % (auto) 0.4 %; Lymphocytes # (auto) 0.83 K/uL (1.2-3.4); Lymphocytes % (auto) 12.4 %; Mean Corpuscular Hemoglobin 26.5 pg (25.0-34.0); Mean Corpuscular Hgb Conc 31.5 g/dL (32.0-36.0); Mean Corpuscular Volume 84.1 fL (80.0-100.0); Mean Platelet Volume 10.2 fL (9.4-12.4); Monocytes # (auto) 0.54 K/uL (0.24-0.82); Neutrophils # (auto) 5.14 K/uL (1.4-6.5); Neutrophils % (auto) 76.5 %; Platelet Count 242 K/uL (130-400); RDW Coefficient of Variation 15.9 % (11.5-14.5); RDW Standard Deviation 49.1 fL (36.4-46.3); Red Blood Count 3.09 M/uL (4.63-6.08); White Blood Count 6.72 K/ul (4.8-10.8)
[2022-11-10 11:50] LABS: BUN Creatinine Ratio 13.3 (10-20); Calcium 8.4 mg/dl (8.5-10.1); Creatinine Clr Calc Pharmacy 128.8 ml/min; Est GFR (African American) 112.6 ml/min; Est GFR (Non-African American) 97.2 ml/min; Magnesium 1.7 mg/dl (1.7-2.4); Potassium 3.8 mmol/L (3.5-5.1)
--- NOTE | 2022-11-10 17:48 | Hospitalist Progress Note ---
Date of Service November 10, 2022 Assessment & Plan (1) Acute GI bleeding: Plan: ASSESSMENT AND PLAN: This is a 52-year-old male who presents with bright red blood per rectum. 1. Bright red blood per rectum -- In the setting of Eliquis History of peptic ulcer disease, gastritis Holding Eliquis Monitor hemoglobin, transfuse if hemoglobin below 7 Protonix drip, IV fluids Hold blood pressure medications Continue prednisone 10 mg daily GI consulted Discussed with patient's oncologist at [facility] Dr. Patterson, does not recommend IVC filter placement -- Status post EGD: Impression: - Normal esophagus. - Non-bleeding gastric ulcer with no stigmata of bleeding. Biopsied. - Normal duodenal bulb and second portion of the duodenum. -- Discussed with GI service, okay to resume Eliquis Patient video capsule endoscopy, relayed patient's request to have this done very soon, within 1 to 2 weeks, they will make a referral to [facility] 2. History of hypertension: Resume amlodipine And benazepril 3. Hypothyroidism: On Synthroid. 4. Melanoma: may continue chemo meds as per Oncologist 5. Chronic kidney disease: crea stable at 1.04 6. Hx of DVT and PE Resume Eliquis Monitor closely 7. Deep venous thrombosis prophylaxis: Sequential compression devices. plan of care discussed with patient in detail and at length all questions answered he is understanding, agreeable, comfortable with the plan of care Admission and Anticipated Discharge Date Admission Date: November 09, 2022 Subjective Follow-up for GI bleed, on Eliquis, etc. Seen sitting up in bed, watching TV No recurrence of GI or rectal bleeding Had mild left lower quadrant pain this morning, resolved No fevers or chills No shortness of breath, chest pain, palpitations, dizziness Feels okay otherwise No other symptoms Review of Systems Review of Systems: all noted and negative except for above Physical Exam Physical Exam: General- oriented x 3, not in distress, speaks in sentences with no effort or accessory muscle use Eyes- anicteric Neck- no JVD Lungs- clear breath sounds bilaterally, no rales/wheezes Heart- normal rate, regular rhythm; no murmurs Abdomen- normal bowel sounds, nondistended, soft, nontender Extremities- trace pretibial edema, no calf tenderness Neuro- alert, oriented x 3; no gross focal neurologic deficits Skin- warm & dry Results & Data Results & Data ([facility] [place]) Vital Signs (Past 12 Hours) Vital Signs Temp Pulse Pulse Resp BP Pulse Ox O2 Del Method 11/10/22 16:37 36.4 C L 85 20 157/91 H 97 Room Air 11/10/22 14:30 36.5 C 89 18 147/87 H 97 Room Air 11/10/22 08:00 80 11/10/22 07:56 36.9 C 91 H 20 142/92 H 96 Room Air all noted and reviewed including below
[2022-11-10] MEDS ORDERED: hydrALAZINE HCL 20 MG/ML VIAL IV PRN (17:52)
[2022-11-10] MEDS: amLODIPine BESYLATE 5 MG TAB PO SCH (20:00)
[2022-11-10] MEDS: PANTOprazole 40 MG in SYRINGE 0 ML IV SCH (20:00)
[2022-11-10] MEDS: APIXABAN 5 MG TABLET PO SCH (20:01)
[2022-11-11] MEDS: LEVOTHYROXINE SODIUM 200 MCG TABLET PO SCH (06:33)
[2022-11-11] MEDS: ACETAMINOPHEN 325 MG TAB PO PRN (07:48)
[2022-11-11] MEDS: APIXABAN 5 MG TABLET PO SCH (07:49)
[2022-11-11] MEDS: predniSONE 10 MG TABLET PO SCH (07:50)
[2022-11-11] MEDS: DOCUSATE SODIUM 100 MG CAP PO SCH (07:50)
[2022-11-11] MEDS: amLODIPine BESYLATE 5 MG TAB PO SCH (07:50)
[2022-11-11 07:56] LABS: Basophils # (auto) 0.03 K/uL (0-0.2); Basophils % (auto) 0.6 %; Eosinophils # (auto) 0.17 K/uL (0-0.50); Eosinophils % (auto) 3.3 %; Hematocrit (blood only) 25.4 % (40.1-51.0); Immature Granulocytes # (auto) 0.02 K/uL (0.00-0.02); Immature Granulocytes % (auto) 0.4 %; Lymphocytes # (auto) 0.98 K/uL (1.2-3.4); Lymphocytes % (auto) 19.1 %; Mean Corpuscular Hemoglobin 26.1 pg (25.0-34.0); Mean Corpuscular Hgb Conc 31.5 g/dL (32.0-36.0); Mean Platelet Volume 10.2 fL (9.4-12.4); Monocytes # (auto) 0.53 K/uL (0.24-0.82); Monocytes % (auto) 10.4 %; Neutrophils # (auto) 3.39 K/uL (1.4-6.5); Neutrophils % (auto) 66.2 %; Platelet Count 251 K/uL (130-400); RDW Coefficient of Variation 15.9 % (11.5-14.5); RDW Standard Deviation 48.5 fL (36.4-46.3); Red Blood Count 3.06 M/uL (4.63-6.08); White Blood Count 5.12 K/ul (4.8-10.8)
[2022-11-11] MEDS: PANTOprazole 40 MG in SYRINGE 0 ML IV SCH (08:00)
[2022-11-11 08:33] LABS: BUN Creatinine Ratio 9.3 (10-20); Calcium 8.4 mg/dl (8.5-10.1); Creatinine Clr Calc Pharmacy 106.5 ml/min; Est GFR (African American) 90.3 ml/min; Est GFR (Non-African American) 77.9 ml/min; Potassium 3.6 mmol/L (3.5-5.1)
--- NOTE | 2022-11-11 12:43 | Hospitalist Progress Note ---
Date of Service November 11, 2022 Assessment & Plan (1) Acute GI bleeding: Plan: ASSESSMENT AND PLAN: This is a 52-year-old male who presents with bright red blood per rectum. 1. Bright red blood per rectum -- In the setting of Eliquis History of peptic ulcer disease, gastritis placed on protonix drip, IV fluids GI consulted Discussed with patient's oncologist at [facility] Dr. Patterson, does not recommend IVC filter placement -- Status post EGD: Impression: - Normal esophagus. - Non-bleeding gastric ulcer with no stigmata of bleeding. Biopsied. - Normal duodenal bulb and second portion of the duodenum. -- no recurrence since admission Hg stable at 8 -- Discussed with GI service, bleeding likely from internal hemorrhoids, okay to resume Eliquis GI recommending video capsule endoscopy, patient requests for this procedure to be performed in 1-2 weeks, relayed to Dr. Richards, he will make a referral to [facility] 2. History of hypertension: resume usual medications 3. Hypothyroidism: On Synthroid. 4. Melanoma: may continue chemo meds as per Oncologist 5. Chronic kidney disease: crea stable at 1.04 6. Hx of DVT and PE Resume Eliquis Monitor closely 7. Deep venous thrombosis prophylaxis: Sequential compression devices. Ff up with PCP in 1 week plan of care discussed with patient in detail and at length all questions answered he is understanding, agreeable, comfortable with the plan of care Admission and Anticipated Discharge Date Admission Date: November 09, 2022 Subjective ff up for GI bleed, etc seen sitting up in bed, comfortable states he feels better overall no BMs no nausea, abdominal pain no dizziness, chest pain, dyspnea no other symptoms Review of Systems Review of Systems: all noted and negative except for above Physical Exam Physical Exam: General- oriented x 3, not in distress, speaks in sentences with no effort or accessory muscle use Eyes- anicteric Neck- no JVD Lungs- clear breath sounds bilaterally, no rales/wheezes Heart- normal rate, regular rhythm; no murmurs Abdomen- normal bowel sounds, nondistended, soft, nontender Extremities- no pretibial edema, no calf tenderness Neuro- alert, oriented x 3; no gross focal neurologic deficits Skin- warm & dry Results & Data Results & Data ([facility]) Vital Signs (Past 12 Hours) Vital Signs Temp Pulse Resp BP BP Pulse Ox O2 Del Method 11/11/22 11:38 37.3 C 95 H 20 120/82 95 Room Air 11/11/22 11:35 36.8 C 87 20 144/93 H 146/95 H 96 11/11/22 07:21 36.8 C 87 20 146/95 H 96 Room Air 11/11/22 04:09 36.6 C 84 18 144/93 H 96 Room Air all noted and reviewed including below
--- NOTE | 2022-11-11 12:47 | Discharge Summary ---
Discharge Summary Date of Service November 11, 2022 Notes For Next Care Provider CBC 1 week post hospital discharge Video Capsule Endoscopy at [facility] needs to be arranged Medication Changes From Visit Protonix 40mg po daily Admission HPI Per Admitting Provider CHIEF COMPLAINT: Bright red blood per rectum. HISTORY OF PRESENT ILLNESS: This is a 52-year-old male with past medical history significant for malignant metastatic melanoma recurrence, follows with [facility], currently on chemo on encorafenib and binimetinib, history of DVT and PE, on Eliquis. Says last blood clot was about 3-4 months ago, having vitiliginous patches from his chemo, history of hypertension, gout, hypothyroidism, hyperlipidemia, chronic kidney disease stage IV, presents with bright red blood per rectum. The patient recently had EGD and colonoscopy, which were unremarkable as per the patient. Around 3:00 a.m. in the morning, he went to bathroom and in the commode he noticed bright red per rectum and also some lower abdominal discomfort, which prompted him to come to the ER. Currently, resting comfortably and hemodynamically stable. Denies any chest pain. No shortness of breath, no nausea, no vomiting. Normal bladder movements. Has some swelling in the legs. No headache, no dizziness, no blurred vision, no earache, no runny nose, no sore throat, no cough, no difficulty swallowing. Appetite is okay. Admission Exam Per Admitting Provider GENERAL: The patient is obese, not in acute distress. VITAL SIGNS: Temperature 36.7, pulse 120, respiratory rate 18, blood pressure 172/107, oxygen 98% on room air. HEENT: Pupils equal, round and reactive to light. Oral mucosa moist. NECK: No JVD, no neck masses. CARDIOVASCULAR: S1 and S2 heard. Tachycardia. No murmurs. RESPIRATORY SYSTEM: Normal AP diameter. No accessory muscle use. No wheezing or crackles. ABDOMEN: Soft, bowel sounds present, nontender. Mild lower abdominal discomfort. No guarding, no rigidity, no distention. CENTRAL NERVOUS SYSTEM: Cranial nerves II-XII grossly intact, nonfocal. EXTREMITIES: Mild pedal edema present. SKIN: Diffuse vitiliginous patches seen. Principal Dx & Hospital Course #1 = Principal Diagnosis (1) Acute GI bleeding: ASSESSMENT AND PLAN: This is a 52-year-old male who presents with bright red blood per rectum. 1. Bright red blood per rectum -- In the setting of Eliquis History of peptic ulcer disease, gastritis -- CT abd/pelvis: 1. No bowel obstruction or pneumoperitoneum. Normal appendix. 2. Mild wall thickening of the cecum may be secondary to partial distention. There is however trace pericecal inflammation with adjacent subcentimeter lymph nodes. Findings may be secondary to a mild colitis, however could be correlated with colonoscopy to exclude an underlying lesion. 3. Splenomegaly. 4. Additional findings as above. --placed on protonix drip, IV fluids GI consulted- Dr. Richards Also Discussed with patient's oncologist at [facility] Dr. Patterson, does not recommend IVC filter placement, recommend to resume Eliquis once GI bleed resolves -- Status post EGD: Impression: - Normal esophagus. - Non-bleeding gastric ulcer with no stigmata of bleeding. Biopsied. - Normal duodenal bulb and second portion of the duodenum. -- no recurrence since admission Hg stable at 8 -- Discussed with GI service, bleeding likely from internal hemorrhoids, okay to resume Eliquis GI recommending video capsule endoscopy, patient requests for this procedure to be performed in 1-2 weeks, relayed to Dr. Richards, he will make a referral to [facility] 2. History of hypertension: resume usual medications 3. Hypothyroidism: On Synthroid. 4. Melanoma: may continue chemo meds as per Oncologist 5. Chronic kidney disease: crea stable at 1.04 6. Hx of DVT and PE Resume Eliquis Monitor closely 7. Deep venous thrombosis prophylaxis: Sequential compression devices. Ff up with PCP in 1 week plan of care discussed with patient in detail and at length all questions answered he is understanding, agreeable, comfortable with the plan of care Discharge Exam General- oriented x 3, not in distress, speaks in sentences with no effort or accessory muscle use Eyes- anicteric Neck- no JVD Lungs- clear breath sounds bilaterally, no rales/wheezes Heart- normal rate, regular rhythm; no murmurs Abdomen- normal bowel sounds, nondistended, soft, nontender Extremities- no pretibial edema, no calf tenderness Neuro- alert, oriented x 3; no gross focal neurologic deficits Skin- warm & dry Updated Medication List Medication Instructions Recorded Confirmed Type amlodipine 5 mg-benazepril 10 mg 1 cap PO DAILY 09/30/22 09/30/22 History capsule apixaban 5 mg tablet (Eliquis) 5 mg PO BID 08/25/22 08/25/22 History hydrochlorothiazide 25 mg tablet 25 mg PO DAILY PRN Hypertension 08/25/22 08/25/22 History levothyroxine 200 mcg tablet 200 mcg PO DAILY 08/25/22 08/25/22 History prednisone 10 mg tablet 10 mg PO DAILY 08/25/22 08/25/22 History binimetinib 15 mg tablet (Mektovi) 45 mg PO Q12H 08/26/22 08/26/22 History encorafenib 75 mg capsule 450 mg PO DAILY 08/26/22 08/26/22 History (Braftovi) ferrous sulfate 325 mg (65 mg 325 mg PO QAM #30 tabs 08/27/22 Rx iron) tablet,delayed release pantoprazole 40 mg tablet,delayed 40 mg PO QAM #30 tabs 08/27/22 Rx release Hospital Stay Data Consultations 11/09/22 05:16 ED Decision to Admit Stat 11/09/22 08:17 Consult Gastroenterology Routine Procedures Performed Operation Date: 11/09/22 17:00 Actual Procedures p EGD Biopsy Cytology - Brandon Richards MD Diagnostic Imagining Performed 11/09/22 03:47 CT abd pelvis IV con only Urgent HISTORY: Acute lower abdominal pain with GI bleed lower abd pain, gi bleed TECHNIQUE: Multiaxial CT images of the abdomen and pelvis were performed following the IV administration of 83 cc of Optiray, A dose lowering technique was utilized adhering to the principles of ALARA. COMPARISON STUDY: CT 08/25/2022 FINDINGS: The imaged lung bases appear clear. No pneumatosis or pneumoperitoneum. The spleen is mildly enlarged measuring up to 16 cm in length. Unremarkable pancreas, contracted gallbladder, adrenal glands and liver. Patency of the hepatic and portal veins. Mild nonspecific bilateral perinephric stranding. No renal or ureteral calculi or hydronephrosis identified. Mild urinary bladder wall thickening with partial distention. Atherosclerosis of the aorta without aneurysm. No bowel obstruction. Debris-filled stomach suggestive of recent meal. There is no significant colonic diverticular disease. There is mild wall thickening of the cecum with partial distention. Normal appendix. Subcentimeter pericecal lymph nodes measure up to 8 mm. Trace pericecal inflammation. Unremarkable soft tissues. Subcutaneous lesion of the left gluteal tissues is redemonstrated measuring 3.6 cm, possibly an injection granuloma. Degenerative changes of the spine, pelvis and hips. IMPRESSION: 1. No bowel obstruction or pneumoperitoneum. Normal appendix. 2. Mild wall thickening of the cecum may be secondary to partial distention. There is however trace pericecal inflammation with adjacent subcentimeter lymph nodes. Findings may be secondary to a mild colitis, however could be correlated with colonoscopy to exclude an underlying lesion. 3. Splenomegaly. 4. Additional findings as above. ACT 112: Negative or not required by law. Pending Results Patient Have Any Pending Studies at Discharge: Yes Discharge Instructions Given to Patient (Per Discharging Provider) PLEASE REFER TO YOUR NEW MEDICATION LIST AND FOLLOW INSTRUCTIONS CAREFULLY. YOUR NEW MEDICATIONS INCLUDE: Protonix 40 mg once daily-take at least 30 minutes before breakfast Do not use medications under the class of NSAIDs including ibuprofen, naproxen, etc. You need to have a video capsule endoscopy by [facility] gastroenterology service. Dr. Richards, assemblyman or woman for [facility], sent a referral to [facility]. PLEASE CALL YOUR PRIMARY CARE PHYSICIAN OR RETURN TO THE ER IF WITH WORSENING OF SYMPTOMS, INCLUDING Bloody or black stools, abdominal pain, nausea vomiting, fevers or chills, Chest pain, shortness of breath, dizziness, weakness, etc. FOLLOW UP WITH PRIMARY CARE PHYSICIAN OUTLINED ABOVE. Follow-up with [facility] oncologist and assemblyman or woman as scheduled. Total Time Total Time Spent Total Time Spent (In Minutes): > 30 minutes
== END 2022-11-11 12:05 | disposition home or self-care (01) | DRG 394 ==
LOC: ED 03:23 → 2S 05:59
DX: E03.9 Hypothyroidism, unspecified; N18.4 Chronic kidney disease, stage 4 (severe); D64.9 Anemia, unspecified; Y92.009 Unspecified place in unspecified non-institutional (private) residence as the place of occurrence of the external cause; Z79.890 Hormone replacement therapy; I12.9 Hypertensive chronic kidney disease with stage 1 through stage 4 chronic kidney disease, or unspecified chronic kidney disease; Z79.01 Long term (current) use of anticoagulants; C43.9 Malignant melanoma of skin, unspecified; E66.9 Obesity, unspecified; Z68.41 Body mass index [BMI] 40.0-44.9, adult; Z86.711 Personal history of pulmonary embolism; E78.5 Hyperlipidemia, unspecified; K25.9 Gastric ulcer, unspecified as acute or chronic, without hemorrhage or perforation; Z86.718 Personal history of other venous thrombosis and embolism; K64.8 Other hemorrhoids; K92.1 Melena; T45.515A Adverse effect of anticoagulants, initial encounter; D68.32 Hemorrhagic disorder due to extrinsic circulating anticoagulants

== ENCOUNTER 2023-02-24 21:59 | Inpatient (IN) ==
[2023-02-24] MEDS ORDERED: SODIUM CHLORIDE 0.9% 1000ML 1,000 ML IV ONE (22:14)
[2023-02-24] MEDS ORDERED: PIPERACILLIN/TAZOBACTAM 4.5 GM/120 ML BAG IV ONE (22:17)
--- NOTE | 2023-02-24 22:23 | Emergency Department Note ---
History of Present Illness General Chief complaint: Dehydration Stated complaint: POSSIBLE DEHYDRATION Time Seen by Provider: 02/24/23 22:04 History of Present Illness Maximum Pain Intensity: 8 This 52-year-old male with metastatic melanoma on chemotherapy presents to the ER for confusion episodes with severe low back pain and difficulty moving his right leg today. Patient states he had an episode of vomiting and was confused and what had happened. He does not recall going to the bathroom in order to shower but ended up cleaning the sink and walking into the living room. Patient states his main complaint is the low back pain and the right leg weakness. Daughter was present for this and gives the history. She states that he vomited all over himself and might of aspirated. She tried to get him to go the bathroom to take a shower but he became confused and started cleaning the sink and then he walked out into the living room. Patient did not recall any of these events. He was apparently normal yesterday. Family denies fevers, chest pain, abdominal pain, flulike illness. Home Medications Medication Instructions Recorded Confirmed Type apixaban 5 mg tablet (Eliquis) 5 mg PO BID 08/25/22 02/25/23 History levothyroxine 200 mcg tablet 200 mcg PO DAILYBB 08/25/22 02/25/23 History prednisone 10 mg tablet 10 mg PO DAILY 08/25/22 02/25/23 History binimetinib 15 mg tablet (Mektovi) 45 mg PO Q12H 08/26/22 02/25/23 History encorafenib 75 mg capsule 450 mg PO QAM 08/26/22 02/25/23 History (Braftovi) allopurinol 300 mg tablet 300 mg PO QAM 02/25/23 02/25/23 History amlodipine 5 mg-benazepril 10 mg 1 cap PO QAM PRN Hypertension 02/25/23 02/25/23 History capsule celecoxib 100 mg capsule 100 mg PO BID PRN Pain 02/25/23 02/25/23 History colchicine 0.6 mg tablet 0.6 mg PO AMPM 02/25/23 02/25/23 History cyclobenzaprine 10 mg tablet 10 mg PO TID PRN Spasms 02/25/23 02/25/23 History ferrous sulfate 325 mg (65 mg 325 mg PO BID 02/25/23 02/25/23 History iron) tablet,delayed release pantoprazole 40 mg tablet,delayed 40 mg PO BID 02/25/23 02/25/23 History release Allergies Allergy/AdvReac Type Severity Reaction Status Date / Time No Known Allergies Allergy Unverified 02/25/23 00:27 Past Med/Surg History Medical History Hypertension Melanoma Surgical History Hx of knee surgery Family History Other Family history non-contributory Social History Smoking Status: Never smoker Second Hand Exposure: No; Hx Alcohol Use: No Hx Substance Use: No Preferred Language: Ukrainian Communication Ability: Effective Interactive Account Manager Required: No Beliefs That Will Affect Care: None marital status: Single Current Living Situation: Alone Feels Safe at Home: Yes Assistive Devices: Walker Review of Systems A total of 10 systems reviewed and were otherwise negative Physical Exam Vital Signs Vital Signs - 24 hr 02/24/23 22:00 02/24/23 22:59 02/24/23 23:13 Temperature 37.1 C Temperature Source Temporal Artery Scan Pulse Rate 122 H Pulse Rate [Apical] 97 H 98 H Pulse Rate from SpO2 Sensor Respiratory Rate 20 16 20 Respiratory Effort / Characteristics Non-Labored Spontaneous Non-Labored Spontaneous Respiratory Depth Normal Normal Normal Respiratory Pattern Regular Regular Blood Pressure 145/96 H Blood Pressure [Right Arm] 171/110 H 165/108 H Blood Pressure Mean 112 Blood Pressure Mean [Right Arm] 130 127 Pulse Oximetry 97 98 99 Oxygen Delivery Method Room Air Room Air Room Air Sepsis Recent Fever Within 48 Hours No Sepsis New/Unexplained Change in Mental Status N/A Sepsis Action Taken by Nursing No Action Required 02/24/23 23:34 02/24/23 23:29 02/24/23 23:54 Temperature Temperature Source Pulse Rate 92 H 95 H Pulse Rate [Apical] 88 Pulse Rate from SpO2 Sensor Respiratory Rate 20 20 Respiratory Effort / Characteristics Non-Labored Spontaneous Respiratory Depth Normal Respiratory Pattern Regular Blood Pressure Blood Pressure [Right Arm] 169/111 H Blood Pressure Mean Blood Pressure Mean [Right Arm] 130 Pulse Oximetry 97 97 Oxygen Delivery Method Room Air Room Air Sepsis Recent Fever Within 48 Hours Sepsis New/Unexplained Change in Mental Status Sepsis Action Taken by Nursing 02/25/23 00:38 02/25/23 03:30 02/25/23 06:08 Temperature Temperature Source Pulse Rate 93 H 108 H Pulse Rate [Apical] 91 H Pulse Rate from SpO2 Sensor Respiratory Rate 22 23 Respiratory Effort / Characteristics Non-Labored Spontaneous Respiratory Depth Normal Respiratory Pattern Regular Blood Pressure 143/100 H Blood Pressure [Right Arm] 135/99 Blood Pressure Mean Blood Pressure Mean [Right Arm] 111 Pulse Oximetry 97 95 Oxygen Delivery Method Room Air Room Air Sepsis Recent Fever Within 48 Hours Sepsis New/Unexplained Change in Mental Status Sepsis Action Taken by Nursing 02/24/23 23:39 02/24/23 23:40 02/24/23 23:50 Temperature Temperature Source Pulse Rate 91 H 93 H 98 H Pulse Rate [Apical] Pulse Rate from SpO2 Sensor 95 H 98 H Respiratory Rate 21 25 H 21 Respiratory Effort / Characteristics Respiratory Depth Respiratory Pattern Blood Pressure Blood Pressure [Right Arm] Blood Pressure Mean Blood Pressure Mean [Right Arm] Pulse Oximetry 96 97 Oxygen Delivery Method Sepsis Recent Fever Within 48 Hours Sepsis New/Unexplained Change in Mental Status Sepsis Action Taken by Nursing 02/25/23 00:00 02/25/23 00:00 02/25/23 00:10 Temperature Temperature Source Pulse Rate 93 H 90 Pulse Rate [Apical] Pulse Rate from SpO2 Sensor 96 H 92 H Respiratory Rate 20 22 Respiratory Effort / Characteristics Respiratory Depth Respiratory Pattern Blood Pressure 154/101 H Blood Pressure [Right Arm] Blood Pressure Mean 118 Blood Pressure Mean [Right Arm] Pulse Oximetry 97 93 Oxygen Delivery Method Sepsis Recent Fever Within 48 Hours Sepsis New/Unexplained Change in Mental Status Sepsis Action Taken by Nursing 02/25/23 00:20 02/25/23 00:30 02/25/23 00:30 Temperature Temperature Source Pulse Rate 85 134 H Pulse Rate [Apical] Pulse Rate from SpO2 Sensor 84 Respiratory Rate 19 20 Respiratory Effort / Characteristics Respiratory Depth Respiratory Pattern Blood Pressure 135/99 Blood Pressure [Right Arm] Blood Pressure Mean 111 Blood Pressure Mean [Right Arm] Pulse Oximetry 93 Oxygen Delivery Method Sepsis Recent Fever Within 48 Hours Sepsis New/Unexplained Change in Mental Status Sepsis Action Taken by Nursing 02/25/23 00:40 02/25/23 00:50 02/25/23 01:00 Temperature Temperature Source Pulse Rate 97 H 95 H Pulse Rate [Apical] Pulse Rate from SpO2 Sensor 98 H 95 H Respiratory Rate 20 20 Respiratory Effort / Characteristics Respiratory Depth Respiratory Pattern Blood Pressure 156/100 H Blood Pressure [Right Arm] Blood Pressure Mean 118 Blood Pressure Mean [Right Arm] Pulse Oximetry 97 97 Oxygen Delivery Method Sepsis Recent Fever Within 48 Hours Sepsis New/Unexplained Change in Mental Status Sepsis Action Taken by Nursing 02/25/23 01:00 02/25/23 02:25 02/25/23 02:26 Temperature Temperature Source Pulse Rate 94 H 97 H Pulse Rate [Apical] Pulse Rate from SpO2 Sensor 95 H 97 H Respiratory Rate 22 11 L Respiratory Effort / Characteristics Respiratory Depth Respiratory Pattern Blood Pressure 150/112 H Blood Pressure [Right Arm] Blood Pressure Mean 124 Blood Pressure Mean [Right Arm] Pulse Oximetry 96 95 Oxygen Delivery Method Sepsis Recent Fever Within 48 Hours Sepsis New/Unexplained Change in Mental Status Sepsis Action Taken by Nursing 02/25/23 02:26 02/25/23 02:30 02/25/23 02:30 Temperature Temperature Source Pulse Rate 95 H 98 H Pulse Rate [Apical] Pulse Rate from SpO2 Sensor 94 H 97 H Respiratory Rate 19 19 Respiratory Effort / Characteristics Respiratory Depth Respiratory Pattern Blood Pressure 161/109 H Blood Pressure [Right Arm] Blood Pressure Mean 126 Blood Pressure Mean [Right Arm] Pulse Oximetry 96 94 Oxygen Delivery Method Sepsis Recent Fever Within 48 Hours Sepsis New/Unexplained Change in Mental Status Sepsis Action Taken by Nursing 02/25/23 02:40 02/25/23 02:50 02/25/23 03:00 Temperature Temperature Source Pulse Rate 95 H 94 H Pulse Rate [Apical] Pulse Rate from SpO2 Sensor 94 H 95 H Respiratory Rate 20 22 Respiratory Effort / Characteristics Respiratory Depth Respiratory Pattern Blood Pressure 171/112 H Blood Pressure [Right Arm] Blood Pressure Mean 131 Blood Pressure Mean [Right Arm] Pulse Oximetry 96 95 Oxygen Delivery Method Sepsis Recent Fever Within 48 Hours Sepsis New/Unexplained Change in Mental Status Sepsis Action Taken by Nursing 02/25/23 03:00 02/25/23 03:10 02/25/23 03:27 Temperature Temperature Source Pulse Rate 105 H Pulse Rate [Apical] Pulse Rate from SpO2 Sensor 92 H 80 Respiratory Rate 20 Respiratory Effort / Characteristics Respiratory Depth Respiratory Pattern Blood Pressure Blood Pressure [Right Arm] Blood Pressure Mean Blood Pressure Mean [Right Arm] Pulse Oximetry 95 97 Oxygen Delivery Method Sepsis Recent Fever Within 48 Hours Sepsis New/Unexplained Change in Mental Status Sepsis Action Taken by Nursing 02/25/23 03:30 02/25/23 03:30 02/25/23 03:40 Temperature Temperature Source Pulse Rate 94 H 105 H Pulse Rate [Apical] Pulse Rate from SpO2 Sensor 95 H Respiratory Rate 21 17 Respiratory Effort / Characteristics Respiratory Depth Respiratory Pattern Blood Pressure 157/115 H Blood Pressure [Right Arm] Blood Pressure Mean 129 Blood Pressure Mean [Right Arm] Pulse Oximetry 97 Oxygen Delivery Method Sepsis Recent Fever Within 48 Hours Sepsis New/Unexplained Change in Mental Status Sepsis Action Taken by Nursing 02/25/23 03:50 02/25/23 04:00 02/25/23 04:00 Temperature Temperature Source Pulse Rate 111 H 109 H Pulse Rate [Apical] Pulse Rate from SpO2 Sensor 110 H Respiratory Rate 26 H 25 H Respiratory Effort / Characteristics Respiratory Depth Respiratory Pattern Blood Pressure 160/102 H Blood Pressure [Right Arm] Blood Pressure Mean 121 Blood Pressure Mean [Right Arm] Pulse Oximetry 100 Oxygen Delivery Method Sepsis Recent Fever Within 48 Hours Sepsis New/Unexplained Change in Mental Status Sepsis Action Taken by Nursing 02/25/23 04:10 02/25/23 04:20 02/25/23 04:30 Temperature Temperature Source Pulse Rate 110 H Pulse Rate [Apical] Pulse Rate from SpO2 Sensor 192 H 110 H Respiratory Rate 15 Respiratory Effort / Characteristics Respiratory Depth Respiratory Pattern Blood Pressure 144/105 H Blood Pressure [Right Arm] Blood Pressure Mean 118 Blood Pressure Mean [Right Arm] Pulse Oximetry 83 L 97 Oxygen Delivery Method Sepsis Recent Fever Within 48 Hours Sepsis New/Unexplained Change in Mental Status Sepsis Action Taken by Nursing 02/25/23 04:30 02/25/23 04:40 02/25/23 04:50 Temperature Temperature Source Pulse Rate 163 H Pulse Rate [Apical] Pulse Rate from SpO2 Sensor 107 H 110 H Respiratory Rate 27 H Respiratory Effort / Characteristics Respiratory Depth Respiratory Pattern Blood Pressure Blood Pressure [Right Arm] Blood Pressure Mean Blood Pressure Mean [Right Arm] Pulse Oximetry 97 94 Oxygen Delivery Method Sepsis Recent Fever Within 48 Hours Sepsis New/Unexplained Change in Mental Status Sepsis Action Taken by Nursing 02/25/23 04:56 02/25/23 04:57 02/25/23 05:08 Temperature Temperature Source Pulse Rate 112 H 120 H Pulse Rate [Apical] Pulse Rate from SpO2 Sensor Respiratory Rate 18 23 Respiratory Effort / Characteristics Respiratory Depth Respiratory Pattern Blood Pressure 173/115 H Blood Pressure [Right Arm] Blood Pressure Mean 134 Blood Pressure Mean [Right Arm] Pulse Oximetry 94 Oxygen Delivery Method Sepsis Recent Fever Within 48 Hours Sepsis New/Unexplained Change in Mental Status Sepsis Action Taken by Nursing 02/25/23 05:09 02/25/23 05:09 02/25/23 05:10 Temperature Temperature Source Pulse Rate 121 H 122 H Pulse Rate [Apical] Pulse Rate from SpO2 Sensor 120 H 123 H Respiratory Rate 22 24 Respiratory Effort / Characteristics Respiratory Depth Respiratory Pattern Blood Pressure 149/102 H Blood Pressure [Right Arm] Blood Pressure Mean 117 Blood Pressure Mean [Right Arm] Pulse Oximetry 96 96 Oxygen Delivery Method Sepsis Recent Fever Within 48 Hours Sepsis New/Unexplained Change in Mental Status Sepsis Action Taken by Nursing 02/25/23 05:20 02/25/23 05:30 02/25/23 05:30 Temperature Temperature Source Pulse Rate 120 H 118 H Pulse Rate [Apical] Pulse Rate from SpO2 Sensor 121 H 118 H Respiratory Rate 22 24 Respiratory Effort / Characteristics Respiratory Depth Respiratory Pattern Blood Pressure 134/106 H Blood Pressure [Right Arm] Blood Pressure Mean 115 Blood Pressure Mean [Right Arm] Pulse Oximetry 93 93 Oxygen Delivery Method Sepsis Recent Fever Within 48 Hours Sepsis New/Unexplained Change in Mental Status Sepsis Action Taken by Nursing 02/25/23 05:40 02/25/23 05:50 02/25/23 06:00 Temperature Temperature Source Pulse Rate 118 H 116 H Pulse Rate [Apical] Pulse Rate from SpO2 Sensor 117 H 117 H Respiratory Rate 24 23 Respiratory Effort / Characteristics Respiratory Depth Respiratory Pattern Blood Pressure 143/103 H Blood Pressure [Right Arm] Blood Pressure Mean 116 Blood Pressure Mean [Right Arm] Pulse Oximetry 92 93 Oxygen Delivery Method Sepsis Recent Fever Within 48 Hours Sepsis New/Unexplained Change in Mental Status Sepsis Action Taken by Nursing 02/25/23 06:00 02/25/23 06:10 Temperature Temperature Source Pulse Rate 120 H 109 H Pulse Rate [Apical] Pulse Rate from SpO2 Sensor 121 H 109 H Respiratory Rate 23 22 Respiratory Effort / Characteristics Respiratory Depth Respiratory Pattern Blood Pressure Blood Pressure [Right Arm] Blood Pressure Mean Blood Pressure Mean [Right Arm] Pulse Oximetry 93 92 Oxygen Delivery Method Sepsis Recent Fever Within 48 Hours Sepsis New/Unexplained Change in Mental Status Sepsis Action Taken by Nursing VITALS: Vitals are noted on the nurse's note and reviewed by myself. Vital signs mildly tachycardic. GENERAL: Pleasant male following commands, in no acute distress, nondiaphoretic, well-developed well-nourished. SKIN: The skin was without rashes, erythema, edema, or bruising. There is no tenting of the skin. Capillary reflex less than 2 seconds. HEAD: Normocephalic atraumatic. EARS: External auditory canals clear EYES: Pupils equal round and reactive to light and accommodation. Conjunctivae without injection, sclerae without icterus. Extraocular movements intact. NOSE: Patent, turbinates without inflammation or discharge. MOUTH: Mucous membranes moist. Pharynx without erythema or exudate. Uvula midline. Airway patent. Tongue does not deviate. NECK: Supple without nuchal rigidity. No lymphadenopathy. No thyromegaly. Cervical spine is nontender. No JVD. HEART: Regular rate and rhythm LUNGS: Clear to auscultation bilaterally without wheezes, rales or rhonchi. No retractions or accessory muscle use. ABDOMEN: Positive bowel sounds x 4. Normal tympanic percussion. Soft, n ontender, without masses or organomegaly. Whalen sign negative. No guarding or rebound tenderness. No CVA tenderness MUSCULOSKELETAL: No muscle atrophy, erythema, or edema noted. No thoracic tenderness. Lumbar tenderness. Patient has difficulty trying to lift the right leg. Left leg 5-5 strength. Patient can plantarflex and dorsiflex C-Flex bilaterally. Sensation is intact. NEURO: Patient was alert and oriented to person place and time. Normal sensation to light and sharp touch. No focal neurological deficits. Course Administered Medications Discontinued Medications Dexamethasone Sodium Phosphate (DexamethasonePf 10 Mg/Ml Vial) 10 mg IV NOW ONE Stop: 02/25/23 04:57 Last Admin: 02/25/23 05:35 Dose: 10 mg Documented By: MED Gadobutrol (Gadobutrol 65ml Vial) 12.5 ml IV ONCE ONE Stop: 02/25/23 02:26 Last Admin: 02/25/23 02:25 Dose: 12.5 ml Documented By: CHRYSTAL Sodium Chloride (Nss 1000ml) 1,000 mls @ 999 mls/hr IV .Q1H1M ONE Stop: 02/24/23 23:14 Last Infusion: 02/24/23 23:44 Dose: 0 mls/hr Documented By: automotive buyer: 02/24/23 22:23 Dose: 999 mls/hr Documented By: MED Piperacillin Sod/Tazobactam Sod (Zosyn) 4.5 gm in 120 mls @ 240 mls/hr IV NOW ONE Stop: 02/24/23 22:46 Last Infusion: 02/24/23 23:44 Dose: 0 mls/hr Documented By: automotive buyer: 02/24/23 23:02 Dose: 240 mls/hr Documented By: MED Acetaminophen (Ofirmev) 1,000 mg in 100 mls @ 400 mls/hr IV NOW STA Stop: 02/25/23 03:31 Last Infusion: 02/25/23 03:35 Dose: 0 mls/hr Documented By: automotive buyer: 02/25/23 03:19 Dose: 400 mls/hr Documented By: MED Lorazepam (Lorazepam 2 Mg/1 Ml Vial) Confirm Administered Dose 2 mg .ROUTE .STK- MED ONE Stop: 02/25/23 04:53 Last Admin: 02/25/23 05:32 Dose: Not Given Documented By: MED Lorazepam (Lorazepam 2 Mg/1 Ml Vial) 2 mg IV NOW STA Stop: 02/25/23 04:57 Last Admin: 02/25/23 05:10 Dose: 2 mg Documented By: MED Critical Care Time Critical Care Time: Yes Total Critical Care Time: 35 I have personally spent 35 minutes of critical care time in the direct management of this patient. This includes bedside care, interpretation of diagnostic studies, and testing, discussion with consultants, patient, and family members, and other required patient management activities. This 35 minutes is in excess of all separately billable procedures. Medical Decision Making Medical Records Attestation: I reviewed the patient's medical records. Home Medications Current Medication List: was personally reviewed by me Laboratory Data Attestation: I reviewed the patient's lab results. 02/24/23 22:26 02/24/23 22:26 Lab Results 02/24/23 02/24/23 02/24/23 Range/Units 22:26 22:26 22:26 WBC 12.75 H (4.8-10.8) K/ul RBC 5.21 (4.70-6.10) M/uL Hgb 12.9 L (14.0-18.0) g/dl Hct 40.0 L (42.0-52.0) % MCV 76.8 L (80.0-100.0) fL MCH 24.8 L (25.0-34.0) pg MCHC 32.3 (32.0-36.0) g/dL RDW Std Deviation 52.9 H (36.4-46.3) fL RDW Coeff of Hieu 19.9 H (11.5-14.5) % Plt Count 325 (130-400) K/uL MPV 10.0 (9.4-12.4) fL Immature Gran % (Auto) 0.2 % Neut % (Auto) 91.3 % Lymph % (Auto) 3.0 % [place] % (Auto) 5.3 % Eos % (Auto) 0.0 % Baso % (Auto) 0.2 % Neut # (Auto) 11.64 H (1.40-6.50) K/uL Lymph # (Auto) 0.38 L (1.2-3.4) K/uL [place] # (Auto) 0.68 H (0.11-0.59) K/uL Eos # (Auto) 0.00 (0-0.50) K/uL Baso # (Auto) 0.02 (0-0.2) K/uL Immature Gran # (Auto) 0.03 (0.01-0.20) K/uL Sodium 136 (136-145) mmol/L Potassium 3.8 (3.5-5.1) mmol/L Chloride 101 (98-107) mmol/L Carbon Dioxide 23 (21-32) mmol/L Anion Gap 12 H (3-11) BUN 10 (6-23) mg/dl Creatinine 1.24 (0.6-1.4) mg/dl Est Cr Clr Drug Dosing Not Reportable Est GFR ( Amer) 76.4 ml/min Est GFR (Non-Af Amer) 66.0 ml/min BUN/Creatinine Ratio 8.1 L (10-20) Glucose 143 H (70-99(Fasting)) mg/dl Lactate 2.0 (0.4-2.0) mmol/L Calcium 9.8 (8.6-10.3) mg/dl Magnesium 1.7 (1.7-2.4) mg/dl Total Bilirubin 0.5 (0.2-1.0) mg/dl Direct Bilirubin 0.1 (0-0.2) mg/dl AST 15 (13-39) U/L ALT 11 (7-52) U/L Alkaline Phosphatase 54 (34-104) U/L Troponin I High Sens 5.8 (0-20) pg/ml Total Protein 8.9 H (6.0-8.3) gm/dl Albumin 4.1 (3.4-5.0) gm/dl Procalcitonin (0-0.5) ng/ml Urine Color Urine Appearance (Clear) Urine pH (4.5-7.5) Ur Specific Exchange (1.000-1.030) Urine Protein (Negative) Urine Glucose (UA) (Negative) Urine Ketones (Negative) Urine Blood (Negative) Urine Nitrite (Negative) Urine Bilirubin (Negative) Urine Urobilinogen (Negative) Ur Leukocyte Esterase (Negative) Urine WBC (Auto) (0-5) /hpf Urine RBC (Auto) (0-4) /hpf U Hyaline Cast (Auto) (0-5) /lpf U Epithel Cells (Auto) (0-5) /lpf Urine Bacteria (Auto) (Negative) SARS-CoV-2 (PCR) (Negative) 02/24/23 02/24/23 02/25/23 Range/Units 22:26 Unknown 00:37 WBC (4.8-10.8) K/ul RBC (4.70-6.10) M/uL Hgb (14.0-18.0) g/dl Hct (42.0-52.0) % MCV (80.0-100.0) fL MCH (25.0-34.0) pg MCHC (32.0-36.0) g/dL RDW Std Deviation (36.4-46.3) fL RDW Coeff of Hieu (11.5-14.5) % Plt Count (130-400) K/uL MPV (9.4-12.4) fL Immature Gran % (Auto) % Neut % (Auto) % Lymph % (Auto) % [place] % (Auto) % Eos % (Auto) % Baso % (Auto) % Neut # (Auto) (1.40-6.50) K/uL Lymph # (Auto) (1.2-3.4) K/uL [place] # (Auto) (0.11-0.59) K/uL Eos # (Auto) (0-0.50) K/uL Baso # (Auto) (0-0.2) K/uL Immature Gran # (Auto) (0.01-0.20) K/uL Sodium (136-145) mmol/L Potassium (3.5-5.1) mmol/L Chloride (98-107) mmol/L Carbon Dioxide (21-32) mmol/L Anion Gap (3-11) BUN (6-23) mg/dl Creatinine (0.6-1.4) mg/dl Est Cr Clr Drug Dosing Est GFR ( Amer) ml/min Est GFR (Non-Af Amer) ml/min BUN/Creatinine Ratio (10-20) Glucose (70-99(Fasting)) mg/dl Lactate (0.4-2.0) mmol/L Calcium (8.6-10.3) mg/dl Magnesium (1.7-2.4) mg/dl Total Bilirubin (0.2-1.0) mg/dl Direct Bilirubin (0-0.2) mg/dl AST (13-39) U/L ALT (7-52) U/L Alkaline Phosphatase (34-104) U/L Troponin I High Sens (0-20) pg/ml Total Protein (6.0-8.3) gm/dl Albumin (3.4-5.0) gm/dl Procalcitonin 0.05 (0-0.5) ng/ml Urine Color Yellow Urine Appearance Clear (Clear) Urine pH 6.5 (4.5-7.5) Ur Specific Exchange 1.018 (1.000-1.030) Urine Protein 1+ H (Negative) Urine Glucose (UA) Negative (Negative) Urine Ketones Negative (Negative) Urine Blood Negative (Negative) Urine Nitrite Negative (Negative) Urine Bilirubin Negative (Negative) Urine Urobilinogen Negative (Negative) Ur Leukocyte Esterase Negative (Negative) Urine WBC (Auto) 1-5 (0-5) /hpf Urine RBC (Auto) 0-4 (0-4) /hpf U Hyaline Cast (Auto) 1-5 (0-5) /lpf U Epithel Cells (Auto) 10-20 H (0-5) /lpf Urine Bacteria (Auto) Negative (Negative) SARS-CoV-2 (PCR) NEGATIVE (Negative) Imaging Data Attestation: I personally reviewed and interpreted this imaging study as follows: Radiologist's Impression: Head CT 02/24/23 22:14 Exam(s): CT HEAD Without Contrast EXAM: CT Head Without Intravenous Contrast CLINICAL HISTORY: Reason for exam: AMS, Melanoma stage 4. TECHNIQUE: Axial computed tomography images of the head/brain without intravenous contrast. CTDI is 36.51 mGy and DLP is 537.48 mGy-cm. Automated exposure control was utilized for the study. A dose lowering technique was utilized adhering to the principles of ALARA. COMPARISON: Dated 08/25/22 FINDINGS: Brain: There are multiple parenchymal foci of high density which do not have a configuration suggestive of hemorrhage and are concerning for intracranial metastatic disease. A hemorrhagic metastasis would be difficult to exclude. No significant white matter disease. Ventricles: Unremarkable. No ventriculomegaly. Bones/joints: Unremarkable. No acute fracture. Soft tissues: Unremarkable. Sinuses: Unremarkable as visualized. No acute sinusitis. Mastoid air cells: Unremarkable as visualized. No mastoid effusion. IMPRESSION: Findings suggesting extensive intracranial metastatic disease. Definite hemorrhage is not seen but hemorrhage into a metastasis is possible. Further evaluation with contrast-enhanced MRI may provide more information. Electronically signed by: Bud Chappell MD 02/24/23 23:58 PM Lumbar Spine MRI 02/25/23 22:14 Exam(s): MRI L SPINE W/WO Contrast EXAM: MR Lumbar Spine Without and With Intravenous Contrast CLINICAL HISTORY: Reason for exam: AMS, Melanoma stage 4, severe LBP cant move R leg. TECHNIQUE: Magnetic resonance images of the lumbar spine without and with intravenous contrast in multiple planes. CONTRAST: Contrast must be dictated COMPARISON: No relevant prior studies available. FINDINGS: Vertebrae: There is a pathologic fracture of the T12 vertebral body without evidence for retropulsion into the canal (image 10 series 14). Interspaces: There are scattered areas of disc desiccation. Spinal cord: Unremarkable. Normal signal. No abnormal enhancement. Soft tissues: Unremarkable. DISCS/SPINAL CANAL/NEURAL FORAMINA: L1-L2: There is loss of intervertebral disc space with a small disc bulge which is left eccentric and causes mild narrowing of the left neural foramen. L2-L3: There is loss of intervertebral disc space with ligamentum flavum infolding and a small disc bulge. No significant canal narrowing. There is mild bilateral neural foraminal narrowing. L3-L4: Unremarkable. No significant disc disease. No stenosis. L4-L5: There is loss of intervertebral disc space with a mild disc bulge. Mild bilateral neural foraminal narrowing. No canal narrowing. L5-S1: Loss of intervertebral disc space without significant canal or neural foraminal narrowing. Other findings: There are multilevel degenerative changes. IMPRESSION: Pathologic fracture of the T12 vertebral body without retropulsion into the canal. Additional multilevel degenerative changes as detailed above. Electronically signed by: Bud Chappell MD 02/25/23 02:48 AM Brain MRI 02/25/23 23:18 Exam(s): MRI HEAD W/WO Contrast EXAM: MR Head Without and With Intravenous Contrast CLINICAL HISTORY: Reason for exam: ams, melanoma w/ mets. TECHNIQUE: Magnetic resonance images of the head/brain without and with intravenous contrast in multiple planes. CONTRAST: Contrast must be dictated COMPARISON: CT from earlier the same evening. FINDINGS: Limitations: The examination is mildly limited by motion artifact. Brain: There are multiple enhancing masses throughout the parenchyma most compatible with intra-axial metastatic disease. For example, 0.8 cm left frontal lesion (image 95 series 21), 1 cm left temporal lesion (image 73 series 21). No hemorrhage. No acute infarct. Ventricles: Unremarkable. No ventriculomegaly. Bones/joints: Unremarkable. Sinuses: Unremarkable as visualized. No acute sinusitis. Mastoid air cells: Unremarkable as visualized. No mastoid effusion. Orbits: Unremarkable as visualized. Other findings: No evidence for acute hemorrhage. IMPRESSION: Extensive intracranial metastatic disease. No evidence for hemorrhage. Electronically signed by: Bud Chappell MD 02/25/23 02:41 AM MDM Narrative Prior records/ancillary studies reviewed and summarized above. Nursing notes reviewed. Additional history obtained from family. The patient's history was concerning for confusion episode severe low back pain with leg weakness. Differential diagnosis: Etiologies such as progression of cancer, metabolic, infection, hypo/hyperglycemia, electrolyte abnormalities, cardiac sources, intracerebral event, toxicologic, neurologic, as well as others were entertained. Physical examination: As above. ER treatment provided: IV Lock An order was placed for continuous cardiac monitoring. The monitor shows a rate of 60-1 50 with a sinus rhythm per my interpretation. IV fluids Decadron Ativan and Keppra were immediately ordered when patient started to seize Seizure precautions were implemented and patient was emergently sent back down to CAT scan On reassessment the patient felt better. Diagnostics interpretation by me: ECG: Ordered for weakness EKG: Normal sinus, normal intervals, no acute ST-T wave changes. Impression normal sinus rhythm independently interpreted by myself I think arrhythmia is unlikely. EKG shows normal sinus rhythm with no interval abnormalities such as QT prolongation or WPW. There are no findings to suggest Brugada syndrome. Cardiac monitoring in the emergency department reveals no tachycardic or bradycardic dysrhythmia. Hypertrophic cardiomyopathy was considered but there are no clear historical elements pointing toward this. EKG is not suggestive. The QRS voltage is not extremely large and there are no suggestive Q waves. The labs Independently Interpreted by myself revealed mild leukocytosis, negative troponin. Negative COVID. Negative urine Blood cultures pending Imaging studies: Chest x-ray with no acute consolidation, pneumothorax or free air per my independent interpretation. Similar to prior Head CT concerning for brain mets without bleed per my independent interpretation MRI is reviewed and read by stat radiology and concerning for metastatic cancer without bleed. T12 pathologic fracture. Consultation: A consultation was placed with the hospitalist. The case was discussed and diagnostics were reviewed. The patient was evaluated in the ER for further treatment. Exam and history seem consistent with metastatic melanoma with increased mets who is confused with a pathologic T12 fracture. Patient also possibly aspirated. He was medicated as above. Labs and diagnostics were independent interpreted by myself. Radiology read the MRI and CT scans. Patient is agreeable treatment plan of admission. Patient was admitted to the medical service. Case was discussed with the hospitalist team and will admit. Patient had no signs of intracranial bleed or mass effect on imaging. No urine infection. Negative COVID. By the evaluation outlined above emergent etiologies such as electrolyte abnormalities, cardiac sources, toxologic, abnormalities blood glucose, metabolic, as well as others were deemed relatively unlikely. I was emergently called to the room after the patient was admitted as the patient began to seize. He was given Ativan, Decadron and Keppra IV. The seizure resolved. Repeat CAT scan was ordered and reviewed independently myself and read by radiology. The admitting team was made aware and patient was admitted to the unit for further evaluation and monitoring. CT was negative for acute bleed. The pt informed about the findings as listed above. All questions were answered and pleased with the treatment. The chart was completed utilizing [employer] voice recognition software. Grammatical errors, random word insertions, pronoun errors, and incomplete sentences are an occassional consequence of this system due to software limitations, ambient noise, and hardware issues. Any formal questions or concerns about the content, text, or information contained within the body of this dictation should be directly addressed to the physician promotional advertising assistant for clarification. 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, Pathologic fracture of thoracic vertebrae, AMS (altered mental status), Aspiration pneumonia Patient Disposition: Admitted As Inpatient Condition: Fair Discharge Instructions Interventions: ED Discharge Assessment Last Done: 02/25/23 06:08 Forms Stand Alone Forms: [facility] Prescriptions Prescriptions: No Action prednisone 10 mg Tablet 10 mg PO DAILY levothyroxine 200 mcg tablet 200 mcg PO DAILYBB Eliquis 5 mg Tablet 5 mg PO BID Braftovi 75 mg Capsule 450 mg PO QAM Mektovi 15 mg Tablet 45 mg PO Q12H amlodipine-benazepril 5-10 mg capsule 1 cap PO QAM PRN (Reason: Hypertension) pantoprazole 40 mg tablet,delayed release (DR/EC) 40 mg PO BID ferrous sulfate 325 mg (65 mg iron) tablet,delayed release (DR/EC) 325 mg PO BID allopurinol 300 mg tablet 300 mg PO QAM colchicine 0.6 mg tablet 0.6 mg PO AMPM celecoxib 100 mg capsule 100 mg PO BID PRN (Reason: Pain) cyclobenzaprine 10 mg tablet 10 mg PO TID PRN (Reason: Spasms) Referrals Referrals: Jayson Parks MD [Outside Practitioners] -
[2023-02-24 22:44] LABS: Hemoglobin 12.9 g/dl (14.0-18.0); Mean Corpuscular Hemoglobin 24.8 pg (25.0-34.0); Mean Corpuscular Hgb Conc 32.3 g/dL (32.0-36.0); Mean Corpuscular Volume 76.8 fL (80.0-100.0); Platelet Count 325 K/uL (130-400); RDW Coefficient of Variation 19.9 % (11.5-14.5); RDW Standard Deviation 52.9 fL (36.4-46.3); Red Blood Count 5.21 M/uL (4.70-6.10); White Blood Count 12.75 K/ul (4.8-10.8)
[2023-02-24 23:01] LABS: Basophils # (auto) 0.02 K/uL (0-0.2); Basophils % (auto) 0.2 %; Immature Granulocytes # (auto) 0.03 K/uL (0.01-0.20); Immature Granulocytes % (auto) 0.2 %; Lymphocytes # (auto) 0.38 K/uL (1.2-3.4); Monocytes # (auto) 0.68 K/uL (0.11-0.59); Monocytes % (auto) 5.3 %; Neutrophils # (auto) 11.64 K/uL (1.40-6.50); Neutrophils % (auto) 91.3 %
[2023-02-24 23:09] LABS: Alanine Aminotransferase 11 U/L (7-52); Albumin Level 4.1 gm/dl (3.4-5.0); Alkaline Phosphatase 54 U/L (34-104); Anion Gap 12 (3-11); Aspartate Aminotransferase 15 U/L (13-39); BUN Creatinine Ratio 8.1 (10-20); Bilirubin Direct 0.1 mg/dl (0-0.2); Bilirubin,Total 0.5 mg/dl (0.2-1.0); Blood Urea Nitrogen 10 mg/dl (6-23); Calcium 9.8 mg/dl (8.6-10.3); Carbon Dioxide 23 mmol/L (21-32); Chloride 101 mmol/L (98-107); Est GFR (African American) 76.4 ml/min; Glucose 143 mg/dl (70-99(Fasting)); Magnesium 1.7 mg/dl (1.7-2.4); Potassium 3.8 mmol/L (3.5-5.1); Sodium 136 mmol/L (136-145); Total Protein 8.9 gm/dl (6.0-8.3)
[2023-02-24 23:15] LABS: Troponin I High Sensitivity 5.8 pg/ml (0-20)
--- NOTE | 2023-02-25 | CT Scan Report ---
Exam(s): CT HEAD Without Contrast EXAM: CT Head Without Intravenous Contrast CLINICAL HISTORY: Reason for exam: AMS, Melanoma stage 4. TECHNIQUE: Axial computed tomography images of the head/brain without intravenous contrast. CTDI is 36.51 mGy and DLP is 537.48 mGy-cm. Automated exposure control was utilized for the study. A dose lowering technique was utilized adhering to the principles of ALARA. COMPARISON: Dated 08/25/22 FINDINGS: Brain: There are multiple parenchymal foci of high density which do not have a configuration suggestive of hemorrhage and are concerning for intracranial metastatic disease. A hemorrhagic metastasis would be difficult to exclude. No significant white matter disease. Ventricles: Unremarkable. No ventriculomegaly. Bones/joints: Unremarkable. No acute fracture. Soft tissues: Unremarkable. Sinuses: Unremarkable as visualized. No acute sinusitis. Mastoid air cells: Unremarkable as visualized. No mastoid effusion. IMPRESSION: Findings suggesting extensive intracranial metastatic disease. Definite hemorrhage is not seen but hemorrhage into a metastasis is possible. Further evaluation with contrast-enhanced MRI may provide more information. Electronically signed by: Bud Chappell MD 02/24/23 23:58 PM
[2023-02-25 00:56] LABS: Appearance Urine Clear (Clear); Bacteria Urine Automated Negative (Negative); Bilirubin Urine Negative (Negative); Blood Urine Negative (Negative); Color Urine Yellow; Glucose Urine UA Negative (Negative); Ketones Urine Negative (Negative); Leukocyte Esterase Urine Negative (Negative); Nitrite Urine Negative (Negative); Protein Urine 1+ (Negative); RBC Urine Automated 0-4 /hpf (0-4); Specific Gravity Urine 1.018 (1.000-1.030); Urobilinogen Urine Negative (Negative); pH Urine 6.5 (4.5-7.5)
[2023-02-25] MEDS ORDERED: GADOBUTROL 65ML VIAL IV ONE (02:25)
--- NOTE | 2023-02-25 02:42 | Magnetic Resonance Report ---
Exam(s): MRI HEAD W/WO Contrast EXAM: MR Head Without and With Intravenous Contrast CLINICAL HISTORY: Reason for exam: ams, melanoma w/ mets. TECHNIQUE: Magnetic resonance images of the head/brain without and with intravenous contrast in multiple planes. CONTRAST: Contrast must be dictated COMPARISON: CT from earlier the same evening. FINDINGS: Limitations: The examination is mildly limited by motion artifact. Brain: There are multiple enhancing masses throughout the parenchyma most compatible with intra-axial metastatic disease. For example, 0.8 cm left frontal lesion (image 95 series 21), 1 cm left temporal lesion (image 73 series 21). No hemorrhage. No acute infarct. Ventricles: Unremarkable. No ventriculomegaly. Bones/joints: Unremarkable. Sinuses: Unremarkable as visualized. No acute sinusitis. Mastoid air cells: Unremarkable as visualized. No mastoid effusion. Orbits: Unremarkable as visualized. Other findings: No evidence for acute hemorrhage. IMPRESSION: Extensive intracranial metastatic disease. No evidence for hemorrhage. Electronically signed by: Bud Chappell MD 02/25/23 02:41 AM
--- NOTE | 2023-02-25 02:49 | Magnetic Resonance Report ---
Exam(s): MRI L SPINE W/WO Contrast EXAM: MR Lumbar Spine Without and With Intravenous Contrast CLINICAL HISTORY: Reason for exam: AMS, Melanoma stage 4, severe LBP cant move R leg. TECHNIQUE: Magnetic resonance images of the lumbar spine without and with intravenous contrast in multiple planes. CONTRAST: Contrast must be dictated COMPARISON: No relevant prior studies available. FINDINGS: Vertebrae: There is a pathologic fracture of the T12 vertebral body without evidence for retropulsion into the canal (image 10 series 14). Interspaces: There are scattered areas of disc desiccation. Spinal cord: Unremarkable. Normal signal. No abnormal enhancement. Soft tissues: Unremarkable. DISCS/SPINAL CANAL/NEURAL FORAMINA: L1-L2: There is loss of intervertebral disc space with a small disc bulge which is left eccentric and causes mild narrowing of the left neural foramen. L2-L3: There is loss of intervertebral disc space with ligamentum flavum infolding and a small disc bulge. No significant canal narrowing. There is mild bilateral neural foraminal narrowing. L3-L4: Unremarkable. No significant disc disease. No stenosis. L4-L5: There is loss of intervertebral disc space with a mild disc bulge. Mild bilateral neural foraminal narrowing. No canal narrowing. L5-S1: Loss of intervertebral disc space without significant canal or neural foraminal narrowing. Other findings: There are multilevel degenerative changes. IMPRESSION: Pathologic fracture of the T12 vertebral body without retropulsion into the canal. Additional multilevel degenerative changes as detailed above. Electronically signed by: Bud Chappell MD 02/25/23 02:48 AM
[2023-02-25] MEDS ORDERED: ACETAMINOPHEN 1,000 MG/100 ML VIAL IV STA (03:17)
[2023-02-25] MEDS ORDERED: LORazepam 2 MG/1 ML VIAL ONE (04:52)
[2023-02-25] MEDS ORDERED: dexAMETHasone**PF** 10 MG/ML VIAL IV ONE (04:56)
[2023-02-25] MEDS ORDERED: LORazepam 2 MG/1 ML VIAL IV STA (04:56)
--- NOTE | 2023-02-25 06:15 | CT Scan Report ---
Exam(s): CT HEAD Without Contrast EXAM: CT Head Without Intravenous Contrast CLINICAL HISTORY: Reason for exam: sz, ams, on eliquis. TECHNIQUE: Axial computed tomography images of the head/brain without intravenous contrast. CTDI is 36.3 mGy and DLP is 614.27 mGy-cm. Automated exposure control was utilized for the study. A dose lowering technique was utilized adhering to the principles of ALARA. COMPARISON: MRI brain dated mar 27 2023 FINDINGS: Brain: Redemonstrated foci of increased attenuation along the cortical jefferson matter of the bilateral frontal and parietal lobes, left greater than right. Findings may be due to known metastatic deposits for melanoma. Increased attenuation may relate to superimposed hemorrhage. This is grossly stable from prior. Areas of decreased attenuation in the deep cerebral white matter are consistent with small vessel ischemic/degenerative changes. The cerebral and cerebellar sulci are prominent consistent with brain atrophy. Ventricles: Unremarkable. No ventriculomegaly. Bones/joints: Unremarkable. No acute fracture. Soft tissues: Unremarkable. Vasculature: Atherosclerotic disease. Sinuses: Unremarkable as visualized. Mastoid air cells: Unremarkable as visualized. No mastoid effusion. Other findings: Consider MRI if there is further concern. IMPRESSION: 1. Redemonstrated foci of increased attenuation along the cortical jefferson matter of the bilateral frontal and parietal lobes, left greater than right. Findings may be due to known metastatic deposits for melanoma. Increased attenuation may relate to superimposed hemorrhage. This is grossly stable from prior. 2. Consider MRI if there is further concern. 3. Small vessel ischemic/degenerative changes. 4. Cerebral and cerebellar atrophy. Electronically signed by: Daniel Campa MD 02/25/23 06:14 AM
--- NOTE | 2023-02-25 06:24 | Critical Care Consultation ---
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 Suspect encephalopathy and seizure was secondary to brain mets. Continue dexamethasone and Keppra. Antibiotics empirically for 48 hours. [place] neurology aware of the patient and will review the case this morning to consider transfer to their hospital. Obtain EEG here. Continue frequent neurochecks. NPO. Head of the bed elevated above 30 degrees. Maintain euglycemia. Currently maintaining airway and saturating well on nasal cannula. No role for intubation presently, but this is a dynamic situation and may change depending on her clinical picture. History of Present Illness Reason for Consultation: Seizure with new brain lesions with hisotry of Melenoma Requesting Physician: Peyman Baird Attending Physician: Peyman Baird History of Present Illness 52 YOM with history of metastatic melanoma, usually follows with [facility] Oncology - with treatment regimen of encorafenib and binimetinib. 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 Patient originally presented to the [facility] on 02/24/23 at 2219 for confusion and low back pain with radicular symptoms. This was also associated with vomiting. He had a MRI performed in the EMD prior to admission which revealed new onset brain metastasis interpreted as extensive intracranial metastatic disease as well as pathologic T2 fracture without retropulsion. During the admission process, patient had a seizure. Unfortunatley unsure how long this lasted or what was all involved. He was given Ativan 2mg, Decadron, and Keppra. Seizure reportedly stopped following Ativan. His primary admitting team reached out to [facility] oncology/neurosurgery, they are to review the images and notify later this morning on whether he will be accepted there. Discussed with hospitalist on limitations of service if he were to neurologically decline. He discussed this with the wesetn's daughter and understands, the patient is also a full code at this time until more information is known. Patient is coming to the ICU as he is obtunded which is likely multifactorial to include post ictal as well as receiving Ativan. He is with adequate oxygenation currently. ABG and ETcO2 will be obtained on arrival to ICU. On arrival patient was awake open eyes, following commands as well as appropriate communication. COVID: NEGATIVE CODE: FULL Consults: Oncology/Neurology Please see staff Attending documentation for full consultation and Assessment/Plan- this was shared encounter Allergies Allergy/AdvReac Type Severity Reaction Status Date / Time No Known Allergies Allergy Unverified 02/25/23 00:27 Home Medications Medication Instructions Recorded Confirmed Type apixaban 5 mg tablet (Eliquis) 5 mg PO BID 08/25/22 02/25/23 History levothyroxine 200 mcg tablet 200 mcg PO DAILYBB 08/25/22 02/25/23 History prednisone 10 mg tablet 10 mg PO DAILY 08/25/22 02/25/23 History binimetinib 15 mg tablet (Mektovi) 45 mg PO Q12H 08/26/22 02/25/23 History encorafenib 75 mg capsule 450 mg PO QAM 08/26/22 02/25/23 History (Braftovi) allopurinol 300 mg tablet 300 mg PO QAM 02/25/23 02/25/23 History amlodipine 5 mg-benazepril 10 mg 1 cap PO QAM PRN Hypertension 02/25/23 02/25/23 History capsule celecoxib 100 mg capsule 100 mg PO BID PRN Pain 02/25/23 02/25/23 History colchicine 0.6 mg tablet 0.6 mg PO AMPM 02/25/23 02/25/23 History cyclobenzaprine 10 mg tablet 10 mg PO TID PRN Spasms 02/25/23 02/25/23 History ferrous sulfate 325 mg (65 mg 325 mg PO BID 02/25/23 02/25/23 History iron) tablet,delayed release pantoprazole 40 mg tablet,delayed 40 mg PO BID 02/25/23 02/25/23 History release Patient History Medical History Hypertension Melanoma Surgical History Hx of knee surgery Family History Other Family history non-contributory Social History Smoking Status: Never smoker Second Hand Exposure: No; Hx Alcohol Use: Yes Alcohol type: beer Hx Substance Use: No Preferred Language: Monegasque Communication Ability: Effective Business Developer Required: No Beliefs That Will Affect Care: None marital status: Single Current Living Situation: Family Other Information That Helps Us Care for You: No Feels Safe at Home: Yes Safety Concerns: Feels Safe At This Time Assistive Devices: None Review of Systems Review of Systems: Unable to obtain secondary to current mental state and no family at bedside Physical Exam Physical Exam: PHYSICAL EXAM: General: obtunded when evaluated in EMD- improved on arrival to ICU ENT: PERRL, EOMI, no pharyngeal exudate, mucous membranes dry Neuro: Awakens to loud voice and noxious stimuli, answers with grunts and yes, moving and localizing all extremities- now awakens to voice and stays awake through conversation- likely to continue to wax and wain Chest: equal rise and fall of the chest, obese with belly breathing Cardiac: Regular rate and rhythm, telemetry reviewed- NSR, skin warm dry, cap refill <3 seconds, peripheral pulses +2, 2+ edema to lower extremities GI: NABS x 4 quadrants, soft, nontender to palpation, no rebound, guarding or tenderness Psych: Normal mood and affect Skin: no rash or erythema Results & Data Results & Data Vital Signs (Past 12 Hours) Vital Signs Temp Pulse Pulse Resp BP BP Pulse Ox 02/25/23 03:30 93 H 02/25/23 00:38 91 H 22 135/99 97 02/24/23 23:54 95 H 20 97 02/24/23 23:29 88 20 169/111 H 97 02/24/23 23:34 92 H 02/24/23 23:13 98 H 20 165/108 H 99 02/24/23 22:59 97 H 16 171/110 H 98 02/24/23 22:00 37.1 C 122 H 20 145/96 H 97 O2 Del Method 02/25/23 03:30 02/25/23 00:38 Room Air 02/24/23 23:54 Room Air 02/24/23 23:29 Room Air 02/24/23 23:34 02/24/23 23:13 Room Air 02/24/23 22:59 Room Air 02/24/23 22:00 Room Air Laboratory Results Abnormal lab results 02/24/23 02/24/23 02/25/23 Range/Units 22:26 22:26 00:37 WBC 12.75 H (4.8-10.8) K/ul Hgb 12.9 L (14.0-18.0) g/dl Hct 40.0 L (42.0-52.0) % MCV 76.8 L (80.0-100.0) fL MCH 24.8 L (25.0-34.0) pg RDW Std Deviation 52.9 H (36.4-46.3) fL RDW Coeff of Hieu 19.9 H (11.5-14.5) % Neut # (Auto) 11.64 H (1.40-6.50) K/uL Lymph # (Auto) 0.38 L (1.2-3.4) K/uL [place] # (Auto) 0.68 H (0.11-0.59) K/uL Anion Gap 12 H (3-11) BUN/Creatinine Ratio 8.1 L (10-20) Glucose 143 H (70-99(Fasting)) mg/dl Total Protein 8.9 H (6.0-8.3) gm/dl Urine Protein 1+ H (Negative) U Epithel Cells (Auto) 10-20 H (0-5) /lpf Diagnostic Findings Head CT 02/24/23 22:14 Exam(s): CT HEAD Without Contrast EXAM: CT Head Without Intravenous Contrast CLINICAL HISTORY: Reason for exam: AMS, Melanoma stage 4. TECHNIQUE: Axial computed tomography images of the head/brain without intravenous contrast. CTDI is 36.51 mGy and DLP is 537.48 mGy-cm. Automated exposure control was utilized for the study. A dose lowering technique was utilized adhering to the principles of ALARA. COMPARISON: Dated 08/25/22 FINDINGS: Brain: There are multiple parenchymal foci of high density which do not have a configuration suggestive of hemorrhage and are concerning for intracranial metastatic disease. A hemorrhagic metastasis would be difficult to exclude. No significant white matter disease. Ventricles: Unremarkable. No ventriculomegaly. Bones/joints: Unremarkable. No acute fracture. Soft tissues: Unremarkable. Sinuses: Unremarkable as visualized. No acute sinusitis. Mastoid air cells: Unremarkable as visualized. No mastoid effusion. IMPRESSION: Findings suggesting extensive intracranial metastatic disease. Definite hemorrhage is not seen but hemorrhage into a metastasis is possible. Further evaluation with contrast-enhanced MRI may provide more information. Electronically signed by: Bud Chappell MD 02/24/23 23:[address] 02/25/23 04:56 Exam(s): CT HEAD Without Contrast EXAM: CT Head Without Intravenous Contrast CLINICAL HISTORY: Reason for exam: sz, ams, on eliquis. TECHNIQUE: Axial computed tomography images of the head/brain without intravenous contrast. CTDI is 36.3 mGy and DLP is 614.27 mGy-cm. Automated exposure control was utilized for the study. A dose lowering technique was utilized adhering to the principles of ALARA. COMPARISON: MRI brain dated mar 27 2023 FINDINGS: Brain: Redemonstrated foci of increased attenuation along the cortical jefferson matter of the bilateral frontal and parietal lobes, left greater than right. Findings may be due to known metastatic deposits for melanoma. Increased attenuation may relate to superimposed hemorrhage. This is grossly stable from prior. Areas of decreased attenuation in the deep cerebral white matter are consistent with small vessel ischemic/degenerative changes. The cerebral and cerebellar sulci are prominent consistent with brain atrophy. Ventricles: Unremarkable. No ventriculomegaly. Bones/joints: Unremarkable. No acute fracture. Soft tissues: Unremarkable. Vasculature: Atherosclerotic disease. Sinuses: Unremarkable as visualized. Mastoid air cells: Unremarkable as visualized. No mastoid effusion. Other findings: Consider MRI if there is further concern. IMPRESSION: 1. Redemonstrated foci of increased attenuation along the cortical jefferson matter of the bilateral frontal and parietal lobes, left greater than right. Findings may be due to known metastatic deposits for melanoma. Increased attenuation may relate to superimposed hemorrhage. This is grossly stable from prior. 2. Consider MRI if there is further concern. 3. Small vessel ischemic/degenerative changes. 4. Cerebral and cerebellar atrophy. Electronically signed by: Daniel Campa MD 02/25/23 06:14 AM Lumbar Spine MRI 02/25/23 22:14 Exam(s): MRI L SPINE W/WO Contrast EXAM: MR Lumbar Spine Without and With Intravenous Contrast CLINICAL HISTORY: Reason for exam: AMS, Melanoma stage 4, severe LBP cant move R leg. TECHNIQUE: Magnetic resonance images of the lumbar spine without and with intravenous contrast in multiple planes. CONTRAST: Contrast must be dictated COMPARISON: No relevant prior studies available. FINDINGS: Vertebrae: There is a pathologic fracture of the T12 vertebral body without evidence for retropulsion into the canal (image 10 series 14). Interspaces: There are scattered areas of disc desiccation. Spinal cord: Unremarkable. Normal signal. No abnormal enhancement. Soft tissues: Unremarkable. DISCS/SPINAL CANAL/NEURAL FORAMINA: L1-L2: There is loss of intervertebral disc space with a small disc bulge which is left eccentric and causes mild narrowing of the left neural foramen. L2-L3: There is loss of intervertebral disc space with ligamentum flavum infolding and a small disc bulge. No significant canal narrowing. There is mild bilateral neural foraminal narrowing. L3-L4: Unremarkable. No significant disc disease. No stenosis. L4-L5: There is loss of intervertebral disc space with a mild disc bulge. Mild bilateral neural foraminal narrowing. No canal narrowing. L5-S1: Loss of intervertebral disc space without significant canal or neural foraminal narrowing. Other findings: There are multilevel degenerative changes. IMPRESSION: Pathologic fracture of the T12 vertebral body without retropulsion into the canal. Additional multilevel degenerative changes as detailed above. Electronically signed by: Bud Chappell MD 02/25/23 02:48 AM Brain MRI 02/25/23 23:18 Exam(s): MRI HEAD W/WO Contrast EXAM: MR Head Without and With Intravenous Contrast CLINICAL HISTORY: Reason for exam: ams, melanoma w/ mets. TECHNIQUE: Magnetic resonance images of the head/brain without and with intravenous contrast in multiple planes. CONTRAST: Contrast must be dictated COMPARISON: CT from earlier the same evening. FINDINGS: Limitations: The examination is mildly limited by motion artifact. Brain: There are multiple enhancing masses throughout the parenchyma most compatible with intra-axial metastatic disease. For example, 0.8 cm left frontal lesion (image 95 series 21), 1 cm left temporal lesion (image 73 series 21). No hemorrhage. No acute infarct. Ventricles: Unremarkable. No ventriculomegaly. Bones/joints: Unremarkable. Sinuses: Unremarkable as visualized. No acute sinusitis. Mastoid air cells: Unremarkable as visualized. No mastoid effusion. Orbits: Unremarkable as visualized. Other findings: No evidence for acute hemorrhage. IMPRESSION: Extensive intracranial metastatic disease. No evidence for hemorrhage. Electronically signed by: Bud Chappell MD 02/25/23 02:41 AM Medications Administered Discontinued Medications Dexamethasone Sodium Phosphate (DexamethasonePf 10 Mg/Ml Vial) 10 mg IV NOW ONE Stop: 02/25/23 04:57 Last Admin: 02/25/23 05:35 Dose: 10 mg Documented By: MED Gadobutrol (Gadobutrol 65ml Vial) 12.5 ml IV ONCE ONE Stop: 02/25/23 02:26 Last Admin: 02/25/23 02:25 Dose: 12.5 ml Documented By: DLS Sodium Chloride (Nss 1000ml) 1,000 mls @ 999 mls/hr IV .Q1H1M ONE Stop: 02/24/23 23:14 Last Infusion: 02/24/23 23:44 Dose: 0 mls/hr Documented By: protective signal repairer: 02/24/23 22:23 Dose: 999 mls/hr Documented By: MED Piperacillin Sod/Tazobactam Sod (Zosyn) 4.5 gm in 120 mls @ 240 mls/hr IV NOW ONE Stop: 02/24/23 22:46 Last Infusion: 02/24/23 23:44 Dose: 0 mls/hr Documented By: protective signal repairer: 02/24/23 23:02 Dose: 240 mls/hr Documented By: MED Acetaminophen (Ofirmev) 1,000 mg in 100 mls @ 400 mls/hr IV NOW STA Stop: 02/25/23 03:31 Last Infusion: 02/25/23 03:35 Dose: 0 mls/hr Documented By: protective signal repairer: 02/25/23 03:19 Dose: 400 mls/hr Documented By: MED Lorazepam (Lorazepam 2 Mg/1 Ml Vial) Confirm Administered Dose 2 mg .ROUTE .STK- MED ONE Stop: 02/25/23 04:53 Last Admin: 02/25/23 05:32 Dose: Not Given Documented By: MED Lorazepam (Lorazepam 2 Mg/1 Ml Vial) 2 mg IV NOW STA Stop: 02/25/23 04:57 Last Admin: 02/25/23 05:10 Dose: 2 mg Documented By: MED Coding Level of Care Code 39268 IN/OBS CONSULT LVL 4,60M Diagnoses 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
[2023-02-25] MEDS ORDERED: LORazepam 2 MG/1 ML VIAL IV PRN (06:57)
[2023-02-25] MEDS ORDERED: SODIUM CHLORIDE 0.9% 1000ML 1,000 ML IV SCH (06:57)
[2023-02-25 07:33] LABS: BUN Creatinine Ratio 8.6 (10-20); Calcium 9.2 mg/dl (8.6-10.3); Creatinine Clr Calc Pharmacy 90.7 ml/min; Est GFR (African American) 73.6 ml/min; Est GFR (Non-African American) 63.5 ml/min
[2023-02-25] MEDS: LEVOTHYROXINE SODIUM 200 MCG TABLET PO SCH (07:47)
[2023-02-25] MEDS: ICU Protocol for HYPERglycemia SCH ×2 (07:48→11:40)
--- NOTE | 2023-02-25 07:51 | Hospitalist Progress Note ---
Date of Service February 25, 2023 Assessment & Plan (1) Seizure: Plan: New onset seizure with mets to brain and new pathologic fracture of T12. Radiation oncology consulted for treatment. I spoke with [facility] livestock nutrition territory manager (Dr. Saez) who reported that there would be nothing different [facility] would do for this patient at this time. He took my cell and will plan to coordinate with Dr. Patterson tomorrow, who is the patient's oncologist. Cont Keppra, seizure precautions. EEG pending in am. Will wean down on decadron with no evidence of edema on the brain MRI. Will hold off on DVT prophlyaxis and stop celebrex to prevent intracranial bleeding--currently no evidence of hemorrhage on the MRI. 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 Continue immunotherapy per current regimen and plan as above. Will coordinate with Dr. Patterson from [facility] tomorrow. (3) Acute metabolic encephalopathy: Plan: 2/2 brain mets and seizure activity followed by Ativan. Resolved and now back to baseline. Advised family that confusion may return. (4) Pathologic fracture of thoracic vertebrae: Plan: Consider XRT to spine. Rad onc consulted. (5) Hypothyroidism: Plan: chronic well controlled per TSH Nov 16 in outpatient record review. Cont home levothyroxine. (6) Hypertension: Plan: chronic, around goal. As daughter and patient were treating BP with PRN antihypertensives, and report intermittent syncope with medication use, this will be stopped and will closely monitor BP, treating only if more elevated around >160. Low salt diet. (7) Gout: Plan: chronic, no evidence of acute flare. Cont colchicine per home regimen. (8) Current use of boarding mother anticoagulation: Plan: Apixaban for h/o DVT on hold in setting of brain mets. (9) Chronic steroid use: Plan: Takes chronic prednisone because when he would get treatment infusions for melanoma, he would become very swollen. The infusions were stopped approx 6 months ago but he remains on prednisone 10mg PO daily. Cont this once we wean off the decadron above. DVT proph-SCDs/ambulation Full Code Dispo-transfer from ICU to PCU, then pending PT/OT recommendations. Hortensia Nuñez DO [place] Hospitalist Admission and Anticipated Discharge Date Admission Date: February 25, 2023 Subjective 52 yo M presents with acute back pain, vomiting and new onset seizure 2/2 rain metastases He is mentating at baseline and reports feeling well Reports the back pain is improved and not bothering him now. He cannot easily sit up on his own in bed but otherwsie has no gross focal neurologic deficits. Daughter is at bedside who was with him last night. We discussed the version of events last night and she mentioned that his mental status will get slightly worse as the day progresses. She reports that he also has been having syncope with antihypertensives and they have been taking benzapril PRN based on the BP check before taking the meds. Review of Systems Review of Systems: All systems were reviewed and negative except as indicated on HPI above. Physical Exam Physical Exam: CONSTITUTIONAL: WNWD, vitals as above, generally well-appearing, NAD EYES: EOMI bilaterally, PERRL, normal conjunctivae, no scleral icterus ENT: external ear and nose normal, oropharynx clear, mucous membranes moist. NECK: trachea midline RESPIRATORY: clear to auscultation bilaterally, no crackles, rales or wheezes, normal respiratory effort CARDIOVASCULAR: regular rate and rhythm, S1 and 2 heard without murmurs, gallops or rubs, no JVD, no peripheral edema CHEST: inspection of chest was normal GASTROINTESTINAL: soft, nontender, ND, no guarding MUSCULOSKELETAL: strength 5/5 throughout, head is normocephalic and atraumatic SKIN: warm and dry, no rashes but skin has a mottled look to it at baseline, ilsa back of neck. NEUROLOGIC: patellar DTRs 2+ bilat. PERRL, EOMI, no facial palsy, no dysarthria. Touch, pain and proprioception normal. CN 2-12 grossly intact, no sensory deficit, normal cognition, normal speech, no tremor PSYCHIATRIC: alert cooperative and oriented to person, place and time. Euthymic mood, makes good eye contact, language grossly intact, recent and remote memory grossly intact. Results & Data Results & Data Vital Signs (Past 12 Hours) Vital Signs Temp Pulse Pulse Resp BP BP Pulse Ox 02/25/23 06:57 37.1 C 103 H 20 152/106 H 97 02/25/23 06:10 109 H 22 92 02/25/23 06:00 120 H 23 93 02/25/23 06:00 143/103 H 02/25/23 05:50 116 H 23 93 02/25/23 05:40 118 H 24 92 02/25/23 05:30 118 H 24 93 02/25/23 05:30 134/106 H 02/25/23 05:20 120 H 22 93 02/25/23 05:10 122 H 24 96 02/25/23 05:09 121 H 22 96 02/25/23 05:09 149/102 H 02/25/23 05:08 120 H 23 94 02/25/23 04:57 173/115 H 02/25/23 04:56 112 H 18 02/25/23 04:50 163 H 27 H 02/25/23 04:40 94 02/25/23 04:30 97 02/25/23 04:30 144/105 H 02/25/23 04:20 97 02/25/23 04:10 110 H 15 83 L 02/25/23 04:00 109 H 25 H 100 02/25/23 04:00 160/102 H 02/25/23 03:50 111 H 26 H 02/25/23 03:40 105 H 17 02/25/23 03:30 94 H 21 97 02/25/23 03:30 157/115 H 02/25/23 03:27 105 H 20 02/25/23 03:10 97 02/25/23 03:00 95 02/25/23 03:00 171/112 H 02/25/23 02:50 94 H 22 95 02/25/23 02:40 95 H 20 96 02/25/23 02:30 98 H 19 94 02/25/23 02:30 161/109 H 02/25/23 02:26 95 H 19 96 02/25/23 02:26 150/112 H 02/25/23 02:25 97 H 11 L 95 02/25/23 01:00 94 H 22 96 02/25/23 01:00 156/100 H 02/25/23 00:50 95 H 20 97 02/25/23 00:40 97 H 20 97 02/25/23 00:30 134 H 20 02/25/23 00:30 135/99 02/25/23 00:20 85 19 93 02/25/23 00:10 90 22 93 02/25/23 00:00 93 H 20 97 02/25/23 00:00 154/101 H 0401/23 23:50 98 H 21 97 02/24/23 23:40 93 H 25 H 96 02/24/23 23:39 91 H 21 02/25/23 06:08 108 H 23 143/100 H 95 02/25/23 03:30 93 H 02/25/23 00:38 91 H 22 135/99 97 02/24/23 23:54 95 H 20 97 02/24/23 23:29 88 20 169/111 H 97 02/24/23 23:34 92 H 02/24/23 23:13 98 H 20 165/108 H 99 02/24/23 22:59 97 H 16 171/110 H 98 02/24/23 22:00 37.1 C 122 H 20 145/96 H 97 O2 Del Method 02/25/23 06:57 Nasal Cannula 02/25/23 06:10 02/25/23 06:00 02/25/23 06:00 02/25/23 05:50 02/25/23 05:40 02/25/23 05:30 02/25/23 05:30 02/25/23 05:20 02/25/23 05:10 02/25/23 05:09 02/25/23 05:09 02/25/23 05:08 02/25/23 04:57 02/25/23 04:56 02/25/23 04:50 02/25/23 04:40 02/25/23 04:30 02/25/23 04:30 02/25/23 04:20 02/25/23 04:10 02/25/23 04:00 02/25/23 04:00 02/25/23 03:50 02/25/23 03:40 02/25/23 03:30 02/25/23 03:30 02/25/23 03:27 02/25/23 03:10 02/25/23 03:00 02/25/23 03:00 02/25/23 02:50 02/25/23 02:40 02/25/23 02:30 02/25/23 02:30 02/25/23 02:26 02/25/23 02:26 02/25/23 02:25 02/25/23 01:00 02/25/23 01:00 02/25/23 00:50 02/25/23 00:40 02/25/23 00:30 02/25/23 00:30 02/25/23 00:20 02/25/23 00:10 02/25/23 00:00 02/25/23 00:00 02/24/23 23:50 02/24/23 23:40 02/24/23 23:39 02/25/23 06:08 Room Air 02/25/23 03:30 02/25/23 00:38 Room Air 02/24/23 23:54 Room Air 02/24/23 23:29 Room Air 02/24/23 23:34 02/24/23 23:13 Room Air 02/24/23 22:59 Room Air 02/24/23 22:00 Room Air Laboratory Results Short CBC 02/24/23 Range/Units 22:26 WBC 12.75 H (4.8-10.8) K/ul Hgb 12.9 L (14.0-18.0) g/dl Hct 40.0 L (42.0-52.0) % Plt Count 325 (130-400) K/uL BMP 02/24/23 02/25/23 22:26 07:02 Sodium 136 136 Potassium 3.8 4.0 Chloride 101 104 Carbon Dioxide 23 24 BUN 10 11 Creatinine 1.24 1.28 Glucose 143 H 130 H Calcium 9.8 9.2 Liver Function 02/24/23 Range/Units 22:26 Total Bilirubin 0.5 (0.2-1.0) mg/dl Direct Bilirubin 0.1 (0-0.2) mg/dl AST 15 (13-39) U/L ALT 11 (7-52) U/L Alkaline Phosphatase 54 (34-104) U/L Albumin 4.1 (3.4-5.0) gm/dl Urine 02/25/23 Range/Units 00:37 Urine Color Yellow Urine Appearance Clear (Clear) Urine pH 6.5 (4.5-7.5) Ur Specific [place] 1.018 (1.000-1.030) Urine Protein 1+ H (Negative) Urine Glucose (UA) Negative (Negative) Diagnostic Findings Head CT 02/24/23 22:14 Exam(s): CT HEAD Without Contrast EXAM: CT Head Without Intravenous Contrast CLINICAL HISTORY: Reason for exam: AMS, Melanoma stage 4. TECHNIQUE: Axial computed tomography images of the head/brain without intravenous contrast. CTDI is 36.51 mGy and DLP is 537.48 mGy-cm. Automated exposure control was utilized for the study. A dose lowering technique was utilized adhering to the principles of ALARA. COMPARISON: Dated 08/25/22 FINDINGS: Brain: There are multiple parenchymal foci of high density which do not have a configuration suggestive of hemorrhage and are concerning for intracranial metastatic disease. A hemorrhagic metastasis would be difficult to exclude. No significant white matter disease. Ventricles: Unremarkable. No ventriculomegaly. Bones/joints: Unremarkable. No acute fracture. Soft tissues: Unremarkable. Sinuses: Unremarkable as visualized. No acute sinusitis. Mastoid air cells: Unremarkable as visualized. No mastoid effusion. IMPRESSION: Findings suggesting extensive intracranial metastatic disease. Definite hemorrhage is not seen but hemorrhage into a metastasis is possible. Further evaluation with contrast-enhanced MRI may provide more information. Electronically signed by: Bud Chappell MD 02/24/23 23:[address] 02/25/23 04:56 Exam(s): CT HEAD Without Contrast EXAM: CT Head Without Intravenous Contrast CLINICAL HISTORY: Reason for exam: sz, ams, on eliquis. TECHNIQUE: Axial computed tomography images of the head/brain without intravenous contrast. CTDI is 36.3 mGy and DLP is 614.27 mGy-cm. Automated exposure control was utilized for the study. A dose lowering technique was utilized adhering to the principles of ALARA. COMPARISON: MRI brain dated mar 27 2023 FINDINGS: Brain: Redemonstrated foci of increased attenuation along the cortical jefferson matter of the bilateral frontal and parietal lobes, left greater than right. Findings may be due to known metastatic deposits for melanoma. Increased attenuation may relate to superimposed hemorrhage. This is grossly stable from prior. Areas of decreased attenuation in the deep cerebral white matter are consistent with small vessel ischemic/degenerative changes. The cerebral and cerebellar sulci are prominent consistent with brain atrophy. Ventricles: Unremarkable. No ventriculomegaly. Bones/joints: Unremarkable. No acute fracture. Soft tissues: Unremarkable. Vasculature: Atherosclerotic disease. Sinuses: Unremarkable as visualized. Mastoid air cells: Unremarkable as visualized. No mastoid effusion. Other findings: Consider MRI if there is further concern. IMPRESSION: 1. Redemonstrated foci of increased attenuation along the cortical jefferson matter of the bilateral frontal and parietal lobes, left greater than right. Findings may be due to known metastatic deposits for melanoma. Increased attenuation may relate to superimposed hemorrhage. This is grossly stable from prior. 2. Consider MRI if there is further concern. 3. Small vessel ischemic/degenerative changes. 4. Cerebral and cerebellar atrophy. Electronically signed by: Daniel Campa MD 02/25/23 06:14 AM Lumbar Spine MRI 02/25/23 22:14 Exam(s): MRI L SPINE W/WO Contrast EXAM: MR Lumbar Spine Without and With Intravenous Contrast CLINICAL HISTORY: Reason for exam: AMS, Melanoma stage 4, severe LBP cant move R leg. TECHNIQUE: Magnetic resonance images of the lumbar spine without and with intravenous contrast in multiple planes. CONTRAST: Contrast must be dictated COMPARISON: No relevant prior studies available. FINDINGS: Vertebrae: There is a pathologic fracture of the T12 vertebral body without evidence for retropulsion into the canal (image 10 series 14). Interspaces: There are scattered areas of disc desiccation. Spinal cord: Unremarkable. Normal signal. No abnormal enhancement. Soft tissues: Unremarkable. DISCS/SPINAL CANAL/NEURAL FORAMINA: L1-L2: There is loss of intervertebral disc space with a small disc bulge which is left eccentric and causes mild narrowing of the left neural foramen. L2-L3: There is loss of intervertebral disc space with ligamentum flavum infolding and a small disc bulge. No significant canal narrowing. There is mild bilateral neural foraminal narrowing. L3-L4: Unremarkable. No significant disc disease. No stenosis. L4-L5: There is loss of intervertebral disc space with a mild disc bulge. Mild bilateral neural foraminal narrowing. No canal narrowing. L5-S1: Loss of intervertebral disc space without significant canal or neural foraminal narrowing. Other findings: There are multilevel degenerative changes. IMPRESSION: Pathologic fracture of the T12 vertebral body without retropulsion into the canal. Additional multilevel degenerative changes as detailed above. Electronically signed by: Bud Chappell MD 02/25/23 02:48 AM Brain MRI 02/25/23 23:18 Exam(s): MRI HEAD W/WO Contrast EXAM: MR Head Without and With Intravenous Contrast CLINICAL HISTORY: Reason for exam: ams, melanoma w/ mets. TECHNIQUE: Magnetic resonance images of the head/brain without and with intravenous contrast in multiple planes. CONTRAST: Contrast must be dictated COMPARISON: CT from earlier the same evening. FINDINGS: Limitations: The examination is mildly limited by motion artifact. Brain: There are multiple enhancing masses throughout the parenchyma most compatible with intra-axial metastatic disease. For example, 0.8 cm left frontal lesion (image 95 series 21), 1 cm left temporal lesion (image 73 series 21). No hemorrhage. No acute infarct. Ventricles: Unremarkable. No ventriculomegaly. Bones/joints: Unremarkable. Sinuses: Unremarkable as visualized. No acute sinusitis. Mastoid air cells: Unremarkable as visualized. No mastoid effusion. Orbits: Unremarkable as visualized. Other findings: No evidence for acute hemorrhage. IMPRESSION: Extensive intracranial metastatic disease. No evidence for hemorrhage. Electronically signed by: Bud Chappell MD 02/25/23 02:41 AM Medications Administered Current Inpatient Medications Allopurinol (Allopurinol 300 Mg Tab) 300 mg PO QAM JESSICA Stop: 03/27/23 08:59 Amlodipine Besylate (Amlodipine Besylate 5 Mg Tab) 5 mg PO DAILY JESSICA Stop: 03/27/23 08:59 Colchicine (Colchicine 0.6 Mg Tab) 0.6 mg PO BID JESSICA Stop: 03/27/23 08:59 Enalapril Maleate (Enalapril Maleate 10 Mg Tab) 10 mg PO DAILY JESSICA Stop: 03/27/23 08:59 Sodium Chloride (Nss 1000ml) 1,000 mls @ 125 mls/hr IV .Q8H JESSICA Stop: 03/27/23 06:56 Dexamethasone 6 mg/ Syringe 1.5 mls @ 1 mls/min IV Q6H JESSICA Stop: 03/27/23 10:59 Pantoprazole Sodium 40 mg/ (Syringe) 10 mls @ 5 mls/min IV BID JESSICA Stop: 03/27/23 08:59 Piperacillin Sod/Tazobactam (Sod 4.5 gm/ Dextrose) 120 mls @ 30 mls/hr IV Q8H JESSICA; Protocol Stop: 03/04/23 07:14 Levetiracetam 500 mg/ Sodium (Chloride) 105 mls @ 420 mls/hr IV Q12H JESSICA Stop: 03/27/23 17:59 Levothyroxine Sodium (Levothyroxine Sodium 200 Mcg Tablet) 200 mcg PO DAILYBB JESSICA Stop: 03/27/23 07:14 Last Admin: 02/25/23 07:47 Dose: Not Given Lorazepam (Lorazepam 2 Mg/1 Ml Vial) 2 mg IV Q2H PRN PRN Reason: Breakthrough Seizures Stop: 03/27/23 06:56 Miscellaneous (Icu Protocol For Hyperglycemia) 1 each N/A ACHS [facility] Stop: 02/27/23 07:29 Last Admin: 02/25/23 07:48 Dose: Not Given Miscellaneous (Encorafenib~Order Awaiting Action) 1 each N/A QS [facility] Stop: 03/27/23 07:14 Last Admin: 02/25/23 07:47 Dose: Not Given Miscellaneous (Binimetinib~Order Awaiting Action) 1 each N/A QS [facility] Stop: 03/27/23 07:59 Last Admin: 02/25/23 07:48 Dose: Not Given
[2023-02-25] MEDS: PIPERACILLIN/TAZOBACTAM 4.5 GM CI (over 4 hours) IV SCH ×2 (07:56→16:47)
[2023-02-25] MEDS ORDERED: PIPERACILLIN/TAZOBACTAM 3.375 GM in DEXTROSE 5% 100 ML IV SCH (08:00)
[2023-02-25] MEDS: COLCHICINE 0.6 MG TAB PO SCH ×2 (08:21→20:00)
[2023-02-25] MEDS: allopurinoL 300 MG TAB PO SCH (08:21)
--- NOTE | 2023-02-25 08:41 | XRay Report ---
XR chest 1V portable CLINICAL HISTORY: ams, CA TECHNIQUE: Single frontal radiograph of the chest was obtained. Comparison: Comparison is made to chest radiograph 08/25/2022 FINDINGS: No lines and tubes are seen. Cardiomegaly is noted. Lungs are underinflated but clear. No evidence of pleural effusion or pneumothorax. IMPRESSION: No acute chest disease. ACT 112: Negative or not required by law. Electronically signed by: Ilan Gray M.D. 02/25/2023 8:40 AM
--- NOTE | 2023-02-25 08:42 | Electrocardiogram Report ---
Test Reason : Blood Pressure : / mmHG Vent. Rate : 114 BPM Atrial Rate : 114 BPM P-R Int : 166 ms QRS Dur : 094 ms QT Int : 328 ms P-R-T Axes : 039 -31 022 degrees QTc Int : 452 ms Sinus tachycardia Left atrial enlargement Left axis deviation Incomplete right bundle branch block Abnormal ECG When compared with ECG of 09-NOV-2022 03:52, No significant change was found Confirmed by Osorio Munroe ([id number]) on 02/25/2023 8:41:55 AM Referred By: REFERRED SELF Confirmed By:Osorio Munroe
[2023-02-25] MEDS ORDERED: amLODIPine BESYLATE 5 MG TAB PO SCH (09:00)
[2023-02-25] MEDS ORDERED: ENALAPRIL MALEATE 10 MG TAB PO SCH (09:00)
[2023-02-25] MEDS ORDERED: PANTOprazole 40 MG in SYRINGE 0 ML IV SCH (09:00)
[2023-02-25] MEDS ORDERED: levETIRAcetam 500 MG in 0.9 % SODIUM CHLORIDE 100 ML IV SCH (09:00)
--- NOTE | 2023-02-25 10:32 | History and Physical Report ---
DATE OF ADMISSION: 02/25/2023. CHIEF COMPLAINT: Nausea, vomiting, confusion, seizure episode in the ER. HISTORY OF PRESENT ILLNESS: This is a 52-year-old male with past medical history significant for malignant metastatic melanoma, recurrent; follows with [facility], on chemo and Mektovi and Braftovi, history of DVT and PE on Eliquis, vitiligo from his chemo, history of hypertension, gout, hypothyroidism, hyperlipidemia, chronic kidney disease presents with confusion and nausea and vomiting at home. The patient says he lives alone. Daughter and son lives close by. The patient was recently in the hospital, in October. At that time, he was here for GI bleed. EGD at that time showed nonbleeding gastric ulcer. Hemoglobin was stable and was restarted Eliquis on discharge and GI recommended video capsule endoscopy, had video capsule endoscopy done in first week of November and was also unremarkable. The patient is having back pain since last couple of days and also some weakness in the right leg and having some ambulatory dysfunction. Also having nausea, vomiting, today and forgetting things and that is why he came here. Initially, he received some Zosyn for possible aspiration pneumonitis and also fluids. Imaging studies showed T12 vertebral pathological fracture and also CT of the head and brain MRI showed extensive intracranial metastatic disease, and no evidence of hemorrhage. When saw the patient, the patient was alert and awake, oriented to name and place, could tell his date of , knows that he is in hospital, but could not tell exact current date. Denied any headache or any blurred visions or dizziness. Has some chronic cough. No runny nose, no sore throat. Denies any chest pain or shortness of breath, no abdominal pain. Normal bowel and bladder movements. Stools are somewhat black as he is taking iron pills as per patient. Then the patient had a seizure in the ER and he was loaded with Keppra, Ativan and Decadron was ordered another CT of the headto rule out ant bleeding.. Talked to the ICU and also talked to [facility], Dr. Pierce who was on- call,was ok with Decadron., Ativan for now and keppra and asked to monitor in the ICU and he is going to review the images with Neurosurgery and if the images show an indication for surgery they will transfer otherwise Radiation Oncology evaluation here in [facility]. Daughter notified of the episode and as per the daughter the patient will be full code. And also per daughter the patient drinks one or two beers daily and daughter does not think that he had drank in last 1 week, but she is not sure. She states patient is alcoholic from long time, and had alcohol withdrawal in the past and she wanted us to look for withdrawal symptoms. The patient currently seems to be postictal,.Hemodynamically stable. ALLERGIES: No known drug allergies. PAST MEDICAL HISTORY: As mentioned above. PAST SURGICAL HISTORY: Colonoscopy, EGD, bilateral knee arthroscopy, tonsillectomy, vasectomy. MEDICATIONS: The patient is on allopurinol 300 mg p.o. daily, amlodipine, benazepril 5/10 mg p.o. daily, Braftovi 450 mg p.o. a.m., celecoxib 100 mg p.o. b.i.d. p.r.n., colchicine 0.6 mg p.o. b.i.d., cyclobenzaprine 10 mg p.o. t.i.d. p.r.n., Eliquis 5 mg p.o. b.i.d., ferrous sulfate 325 mg p.o. b.i.d., levothyroxine 200 mcg p.o. daily, Mektovi 45 mg p.o. b.i.d., Protonix 40 mg p.o. b.i.d., prednisone 10 mg p.o. daily. FAMILY HISTORY: Significant for brother has arthritis, father has arthritis, mother has asthma. Aunt has colon cancer; father has sleep disorder; paternal grandfather has stroke. SOCIAL HISTORY: Single, no smoking. Alcohol, drinks 1 to 2 beers daily as per daughter. No drug use. REVIEW OF SYSTEMS: As per HPI. Rest of the review of systems is negative. PHYSICAL EXAMINATION: GENERAL: The patient initially was alert and oriented to name, place, but difficulty current dates. Speech was normal. No facial droop. Obeys simple commands, but later the patient had seizure, currently postictal, unresponsive currently. HEENT: Pupils are equal, round and reactive to light. NECK: No JVD or neck masses. CARDIOVASCULAR: S1 and S2 heard. Regular rate and rhythm. No murmur, no gallop. RESPIRATORY SYSTEM: Normal AP diameter. No accessory muscle use. No wheezing, crackles. ABDOMEN: Soft, bowel sounds present, nontender, no distention. CENTRAL NERVOUS SYSTEM: He was alert and oriented to name, place. Obeys simple commands. Moves extremities. currently, unresponsive after seizure. LABORATORY DATA: WBC 12.7, hemoglobin 12.9, hematocrit 40, platelets 325. Sodium 136, potassium 3.8, chloride 101, CO2 of 23, BUN 10, creatinine 1.2, serum glucose 143. Lactate 2, calcium 9.8, magnesium 1.7, total bilirubin 0.5, direct bilirubin 0.1, AST 15, ALT 11, alkaline phosphatase 54. Troponin I high sensitivity 5.8. Procalcitonin 0.05. Urinalysis negative. SARS-CoV-2 PCR negative. IMAGING DATA: Chest x-ray no acute findings, CT of the head initially showing extensive intracranial metastatic disease. Different hemorrhage is not seen, but hemorrhagic metastasis is possible, further evaluation with contrast- enhanced MRI can provide more information. Lumbar spine CT showed T12 pathological fracture. Brain MRI showed extensive intracranial metastatic disease, no evidence of hemorrhage. Repeat CT head today morning demonstrated focal increased attenuation along the cortical jefferson matter of the bilateral frontal and parietal lobes, left greater than right. Findings may be due to known metastatic deposits for melanoma, increased attenuation possible superimposed hemorrhage disease, Grossly stable from prior.Follow MRI if any further concern EKG: Sinus tachycardia at a rate of 114, incomplete right bundle-branch block, no significant change was found. ASSESSMENT AND PLAN: This is a 52-year-old male with history of metastatic melanoma, presents with confusion, nausea, vomiting and had a seizure episode in the ER. 1. Metastatic melanoma Today came with confusion, nausea, vomiting and brain MRI showed extensive metastatic disease. He had a PET scan done on 02/06/2023 which showed no evidence of new or recurrent trace of disease. and now he has new Brain metastatic disease and had a seizure episode. Called [facility] on-call, Dr. Pierce. He said, he will review the images with Neurosurgery and if there is any role of surgery then we will transfer, otherwise, he want to keep him here with plan for radiation and agreed with Decadron, Keppra and IV Ativan p.r.n. We will continue with Keppra iv 500 mg b.i.d., IV Ativan p.r.n. for breakthrough seizures, we will keep him n.p.o., IV fluids. Seizure precautions, iv decadron . Consult Neurology, and radiation oncology 2. Seizures, on medications above. 3. Metastatic melanoma. Continue current chemotherapy, await recommendations from [facility]. 4. History of deep venous thrombosis, pulmonary embolism. We will hold Eliquis for now as there was some question of hemorrhage on the CAT scan. 5. Hypothyroidism. Continue Synthroid. 6. Gastroesophageal reflux disease. Placed on IV Protonix. 7. Gout. Continue allopurinol and colchicine. 8. History of anemia. We will hold iron supplements for now. 9. Chronic kidney disease, creatinine of 1.2. Will follow the labs. 10. T12 pathological fracture. Ortho consult if patient staying 11. Deep venous thrombosis prophylaxis: Sequential compression devices for now. DISPOSITION: Closely monitor in the ICU. Level 1 full code as per my discussion with the daughter. Job ID: [id number]
[2023-02-25] MEDS ORDERED: dexAMETHasone 6 MG in SYRINGE 0 ML IV SCH (11:00)
[2023-02-25] MEDS: levETIRAcetam 500 MG in 0.9 % SODIUM CHLORIDE 100 ML IV SCH (18:02)
--- NOTE | 2023-02-25 18:26 | Neurology Consultation ---
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 There was no obvious hemorrhagic conversion. There is no significant cerebral edema. Recommendations/plan: We will keep the patient on Keppra 500 mg twice a day for seizure prevention. EEG to evaluate for epileptogenic activity. Gradual taper of steroid, based on heme-onc recommendations. (2) Acute metabolic encephalopathy: Impression: The patient was very confused and disoriented yesterday. He vomited multiple times, and was acting weird. Such mental status change is likely multifactorial secondary to several brain metastases, with or without complex partial seizures. Current chemotherapy might induce mental status change as well. Recommendations/plan: As seen above. (3) Pathologic fracture of thoracic vertebrae: (4) Current use of termite inspector anticoagulation: Plan As seen above. Thank for the consultation. History of Present Illness Reason for Consultation: AMS, brain metastasis Requesting Physician: Hortensia Nuñez DO Attending Physician: Hortensia Nuñez DO History of Present Illness The patient is a 52-year-old gentleman, with metastatic melanoma, who was brought to emergency department by other family members, because of confusion, disorientation, low back pain, and recurrent vomiting. The patient has been followed by [facility] oncology, with treatment regimen of encorafenib and binimetinib as well as Eliquis for DVT/pulmonary embolism. The patient has no history of seizure or seizure-like activities before. Apparently, he was very confused and disoriented yesterday. There was no witnessed tonic-clonic activity. He vomited multiple times. There was no fall, head and neck trauma however, he was complaining no new onset back pain.. In emergency department, Head CT showed findings, which was suggestive of metastatic deposits for melanoma with or without superimposed hemorrhage. Following brain MRI was done as well as lumbar spine MRI, which showed several metastatic lesion of brain, but also T12 level spinal pathologic fracture. The patient was started on dexamethasone as well as Keppra and was admitted to intensive care unit. The case was discussed with [facility], and they did not recommend transfer. Since this morning, the patient has b een more oriented and alert. There has been no focal neurological deficit. Patient has stayed seizure-free. MRI findings are explained to the patient and other family members. I have reviewed the patient's chart including imaging studies and visualized them personally. I have discussed the case with the patient and other family members. I have answered their questions in detail. Allergies Allergy/AdvReac Type Severity Reaction Status Date / Time No Known Allergies Allergy Unverified 02/25/23 00:27 Home Medications Medication Instructions Recorded Confirmed Type apixaban 5 mg tablet (Eliquis) 5 mg PO BID 08/25/22 02/25/23 History levothyroxine 200 mcg tablet 200 mcg PO DAILYBB 08/25/22 02/25/23 History prednisone 10 mg tablet 10 mg PO DAILY 08/25/22 02/25/23 History binimetinib 15 mg tablet (Mektovi) 45 mg PO Q12H 08/26/22 02/25/23 History encorafenib 75 mg capsule 450 mg PO QAM 08/26/22 02/25/23 History (Braftovi) allopurinol 300 mg tablet 300 mg PO QAM 02/25/23 02/25/23 History amlodipine 5 mg-benazepril 10 mg 1 cap PO QAM PRN Hypertension 02/25/23 02/25/23 History capsule celecoxib 100 mg capsule 100 mg PO BID PRN Pain 02/25/23 02/25/23 History colchicine 0.6 mg tablet 0.6 mg PO AMPM 02/25/23 02/25/23 History cyclobenzaprine 10 mg tablet 10 mg PO TID PRN Spasms 02/25/23 02/25/23 History ferrous sulfate 325 mg (65 mg 325 mg PO BID 02/25/23 02/25/23 History iron) tablet,delayed release pantoprazole 40 mg tablet,delayed 40 mg PO BID 02/25/23 02/25/23 History release Patient History Medical History Hypertension Melanoma Surgical History Hx of knee surgery Family History Other Family history non-contributory Social History Smoking Status: Never smoker Second Hand Exposure: No; Hx Alcohol Use: Yes Alcohol type: beer Hx Substance Use: No Preferred Language: Cameroonian Communication Ability: Impaired Learning Support Resource Room Teacher Required: No Beliefs That Will Affect Care: None marital status: Single Current Living Situation: Family Other Information That Helps Us Care for You: No Feels Safe at Home: Yes Safety Concerns: Feels Safe At This Time Assistive Devices: Walker Review of Systems Review of Systems: All systems reviewed & are unremarkable except as noted in HPI & below Physical Exam Physical Exam: General Examination: Constitutional: Well developed person in no acute distress. HENT: Normal exam with inspection. CV: Hearth rhythm is regular. Neck: Supple, no carotid bruits. Lungs: Non-labored and comfortable breathing. Abdomen: Soft, non-tender, non-distended. Skin: No rash or ecchymosis. Extremities: No edema or cyanosis NEUROLOGICAL EXAMINATION: Mental Status: Alert and oriented to place, person and time. Cranial Nerves: II-XII are intact. No nystagmus. Funduscopy: Normal looking optic discs. Motor: 5/5 in all extremities without asymmetry. Tone: Normal without spasticity or rigidity. Sensory: Intact to all sensory modalities. Coordination: No dysmetria with FTN testing. Speech: Fluent. Comprehension is intact. Gait: Not assessed Musculoskeletal: Normal muscle bulk, no atrophy. Results & Data Vital Signs (Past 12 Hours) Vital Signs Temp Pulse Pulse Resp BP BP Pulse Ox 02/25/23 17:00 92 H 19 92 02/25/23 17:00 143/101 H 02/25/23 16:00 84 29 H 85 L 02/25/23 16:00 139/94 02/25/23 16:00 37.4 C 02/25/23 15:00 93 H 16 96 02/25/23 15:00 138/101 H 02/25/23 14:00 87 23 02/25/23 14:00 144/100 H 02/25/23 13:01 145/97 H 02/25/23 13:01 91 H 20 95 02/25/23 13:00 87 23 93 02/25/23 08:00 02/25/23 12:00 93 H 19 95 02/25/23 12:00 151/91 H 02/25/23 11:00 88 22 94 02/25/23 11:00 131/84 02/25/23 10:00 82 21 96 02/25/23 10:00 136/92 02/25/23 09:00 94 H 21 90 02/25/23 09:00 131/89 02/25/23 08:00 89 20 93 02/25/23 08:00 136/94 02/25/23 07:00 103 H 23 95 02/25/23 07:00 128/88 02/25/23 06:46 152/106 H 02/25/23 06:46 103 H 21 89 L 02/25/23 06:57 37.1 C 103 H 20 152/106 H 97 O2 Del Method 02/25/23 17:00 02/25/23 17:00 02/25/23 16:00 02/25/23 16:00 02/25/23 16:00 02/25/23 15:00 02/25/23 15:00 02/25/23 14:00 02/25/23 14:00 02/25/23 13:01 02/25/23 13:01 02/25/23 13:00 02/25/23 08:00 Room Air 02/25/23 12:00 02/25/23 12:00 02/25/23 11:00 02/25/23 11:00 02/25/23 10:00 02/25/23 10:00 02/25/23 09:00 02/25/23 09:00 02/25/23 08:00 02/25/23 08:00 02/25/23 07:00 Room Air 02/25/23 07:00 02/25/23 06:46 02/25/23 06:46 02/25/23 06:57 Nasal Cannula Laboratory Results Laboratory Results - last 24 hr 02/24/23 02/24/23 02/24/23 22:26 22:26 22:26 WBC 12.75 H RBC 5.21 Hgb 12.9 L Hct 40.0 L MCV 76.8 L MCH 24.8 L MCHC 32.3 RDW Std Deviation 52.9 H RDW Coeff of Hieu 19.9 H Plt Count 325 MPV 10.0 Immature Gran % (Auto) 0.2 Neut % (Auto) 91.3 Lymph % (Auto) 3.0 [place] % (Auto) 5.3 Eos % (Auto) 0.0 Baso % (Auto) 0.2 Neut # (Auto) 11.64 H Lymph # (Auto) 0.38 L [place] # (Auto) 0.68 H Eos # (Auto) 0.00 Baso # (Auto) 0.02 Immature Gran # (Auto) 0.03 Sodium 136 Potassium 3.8 Chloride 101 Carbon Dioxide 23 Anion Gap 12 H BUN 10 Creatinine 1.24 Est Cr Clr Drug Dosing Not Reportable Est GFR ( Amer) 76.4 Est GFR (Non-Af Amer) 66.0 BUN/Creatinine Ratio 8.1 L Glucose 143 H POC Glucose Lactate 2.0 Calcium 9.8 Magnesium 1.7 Total Bilirubin 0.5 Direct Bilirubin 0.1 AST 15 ALT 11 Alkaline Phosphatase 54 Troponin I High Sens 5.8 Total Protein 8.9 H Albumin 4.1 Procalcitonin Urine Color Urine Appearance Urine pH Ur Specific [place] Urine Protein Urine Glucose (UA) Urine Ketones Urine Blood Urine Nitrite Urine Bilirubin Urine Urobilinogen Ur Leukocyte Esterase Urine WBC (Auto) Urine RBC (Auto) U Hyaline Cast (Auto) U Epithel Cells (Auto) Urine Bacteria (Auto) Nasal Screen MRSA (PCR) SARS-CoV-2 (PCR) 02/24/23 02/24/23 02/25/23 22:26 Unknown 00:37 WBC RBC Hgb Hct MCV MCH MCHC RDW Std Deviation RDW Coeff of Hieu Plt Count MPV Immature Gran % (Auto) Neut % (Auto) Lymph % (Auto) [place] % (Auto) Eos % (Auto) Baso % (Auto) Neut # (Auto) Lymph # (Auto) [place] # (Auto) Eos # (Auto) Baso # (Auto) Immature Gran # (Auto) Sodium Potassium Chloride Carbon Dioxide Anion Gap BUN Creatinine Est Cr Clr Drug Dosing Est GFR ( Amer) Est GFR (Non-Af Amer) BUN/Creatinine Ratio Glucose POC Glucose Lactate Calcium Magnesium Total Bilirubin Direct Bilirubin AST ALT Alkaline Phosphatase Troponin I High Sens Total Protein Albumin Procalcitonin 0.05 Urine Color Yellow Urine Appearance Clear Urine pH 6.5 Ur Specific [place] 1.018 Urine Protein 1+ H Urine Glucose (UA) Negative Urine Ketones Negative Urine Blood Negative Urine Nitrite Negative Urine Bilirubin Negative Urine Urobilinogen Negative Ur Leukocyte Esterase Negative Urine WBC (Auto) 1-5 Urine RBC (Auto) 0-4 U Hyaline Cast (Auto) 1-5 U Epithel Cells (Auto) 10-20 H Urine Bacteria (Auto) Negative Nasal Screen MRSA (PCR) SARS-CoV-2 (PCR) NEGATIVE 02/25/23 02/25/23 02/25/23 07:00 07:02 07:02 WBC RBC Hgb Hct MCV MCH MCHC RDW Std Deviation RDW Coeff of Hieu Plt Count MPV Immature Gran % (Auto) Neut % (Auto) Lymph % (Auto) [place] % (Auto) Eos % (Auto) Baso % (Auto) Neut # (Auto) Lymph # (Auto) [place] # (Auto) Eos # (Auto) Baso # (Auto) Immature Gran # (Auto) Sodium 136 Potassium 4.0 Chloride 104 Carbon Dioxide 24 Anion Gap 8 BUN 11 Creatinine 1.28 Est Cr Clr Drug Dosing 90.7 Est GFR ( Amer) 73.6 Est GFR (Non-Af Amer) 63.5 BUN/Creatinine Ratio 8.6 L Glucose 130 H POC Glucose Lactate 1.6 Calcium 9.2 Magnesium Total Bilirubin Direct Bilirubin AST ALT Alkaline Phosphatase Troponin I High Sens Total Protein Albumin Procalcitonin Urine Color Urine Appearance Urine pH Ur Specific [place] Urine Protein Urine Glucose (UA) Urine Ketones Urine Blood Urine Nitrite Urine Bilirubin Urine Urobilinogen Ur Leukocyte Esterase Urine WBC (Auto) Urine RBC (Auto) U Hyaline Cast (Auto) U Epithel Cells (Auto) Urine Bacteria (Auto) Nasal Screen MRSA (PCR) Negative SARS-CoV-2 (PCR) 02/25/23 11:29 WBC RBC Hgb Hct MCV MCH MCHC RDW Std Deviation RDW Coeff of Heiu Plt Count MPV Immature Gran % (Auto) Neut % (Auto) Lymph % (Auto) [place] % (Auto) Eos % (Auto) Baso % (Auto) Neut # (Auto) Lymph # (Auto) [place] # (Auto) Eos # (Auto) Baso # (Auto) Immature Gran # (Auto) Sodium Potassium Chloride Carbon Dioxide Anion Gap BUN Creatinine Est Cr Clr Drug Dosing Est GFR ( Amer) Est GFR (Non-Af Amer) BUN/Creatinine Ratio Glucose POC Glucose 123 H Lactate Calcium Magnesium Total Bilirubin Direct Bilirubin AST ALT Alkaline Phosphatase Troponin I High Sens Total Protein Albumin Procalcitonin Urine Color Urine Appearance Urine pH Ur Specific [place] Urine Protein Urine Glucose (UA) Urine Ketones Urine Blood Urine Nitrite Urine Bilirubin Urine Urobilinogen Ur Leukocyte Esterase Urine WBC (Auto) Urine RBC (Auto) U Hyaline Cast (Auto) U Epithel Cells (Auto) Urine Bacteria (Auto) Nasal Screen MRSA (PCR) SARS-CoV-2 (PCR) Diagnostic Findings Chest X-Ray 02/24/23 22:14 XR chest 1V portable CLINICAL HISTORY: ams, CA TECHNIQUE: Single frontal radiograph of the chest was obtained. Comparison: Comparison is made to chest radiograph 08/25/2022 FINDINGS: No lines and tubes are seen. Cardiomegaly is noted. Lungs are underinflated but clear. No evidence of pleural effusion or pneumothorax. IMPRESSION: No acute chest disease. ACT 112: Negative or not required by law. Electronically signed by: Ilan Gray M.D. 02/25/2023 8:[address] 02/24/23 22:14 Exam(s): CT HEAD Without Contrast EXAM: CT Head Without Intravenous Contrast CLINICAL HISTORY: Reason for exam: AMS, Melanoma stage 4. TECHNIQUE: Axial computed tomography images of the head/brain without intravenous contrast. CTDI is 36.51 mGy and DLP is 537.48 mGy-cm. Automated exposure control was utilized for the study. A dose lowering technique was utilized adhering to the principles of ALARA. COMPARISON: Dated 08/25/22 FINDINGS: Brain: There are multiple parenchymal foci of high density which do not have a configuration suggestive of hemorrhage and are concerning for intracranial metastatic disease. A hemorrhagic metastasis would be difficult to exclude. No significant white matter disease. Ventricles: Unremarkable. No ventriculomegaly. Bones/joints: Unremarkable. No acute fracture. Soft tissues: Unremarkable. Sinuses: Unremarkable as visualized. No acute sinusitis. Mastoid air cells: Unremarkable as visualized. No mastoid effusion. IMPRESSION: Findings suggesting extensive intracranial metastatic disease. Definite hemorrhage is not seen but hemorrhage into a metastasis is possible. Further evaluation with contrast-enhanced MRI may provide more information. Electronically signed by: Bud Chappell MD 02/24/23 23:[address] 02/25/23 04:56 Exam(s): CT HEAD Without Contrast EXAM: CT Head Without Intravenous Contrast CLINICAL HISTORY: Reason for exam: sz, ams, on eliquis. TECHNIQUE: Axial computed tomography images of the head/brain without intravenous contrast. CTDI is 36.3 mGy and DLP is 614.27 mGy-cm. Automated exposure control was utilized for the study. A dose lowering technique was utilized adhering to the principles of ALARA. COMPARISON: MRI brain dated mar 27 2023 FINDINGS: Brain: Redemonstrated foci of increased attenuation along the cortical jefferson matter of the bilateral frontal and parietal lobes, left greater than right. Findings may be due to known metastatic deposits for melanoma. Increased attenuation may relate to superimposed hemorrhage. This is grossly stable from prior. Areas of decreased attenuation in the deep cerebral white matter are consistent with small vessel ischemic/degenerative changes. The cerebral and cerebellar sulci are prominent consistent with brain atrophy. Ventricles: Unremarkable. No ventriculomegaly. Bones/joints: Unremarkable. No acute fracture. Soft tissues: Unremarkable. Vasculature: Atherosclerotic disease. Sinuses: Unremarkable as visualized. Mastoid air cells: Unremarkable as visualized. No mastoid effusion. Other findings: Consider MRI if there is further concern. IMPRESSION: 1. Redemonstrated foci of increased attenuation along the cortical jefferson matter of the bilateral frontal and parietal lobes, left greater than right. Findings may be due to known metastatic deposits for melanoma. Increased attenuation may relate to superimposed hemorrhage. This is grossly stable from prior. 2. Consider MRI if there is further concern. 3. Small vessel ischemic/degenerative changes. 4. Cerebral and cerebellar atrophy. Electronically signed by: Daniel Campa MD 02/25/23 06:14 AM Lumbar Spine MRI 02/25/23 22:14 Exam(s): MRI L SPINE W/WO Contrast EXAM: MR Lumbar Spine Without and With Intravenous Contrast CLINICAL HISTORY: Reason for exam: AMS, Melanoma stage 4, severe LBP cant move R leg. TECHNIQUE: Magnetic resonance images of the lumbar spine without and with intravenous contrast in multiple planes. CONTRAST: Contrast must be dictated COMPARISON: No relevant prior studies available. FINDINGS: Vertebrae: There is a pathologic fracture of the T12 vertebral body without evidence for retropulsion into the canal (image 10 series 14). Interspaces: There are scattered areas of disc desiccation. Spinal cord: Unremarkable. Normal signal. No abnormal enhancement. Soft tissues: Unremarkable. DISCS/SPINAL CANAL/NEURAL FORAMINA: L1-L2: There is loss of intervertebral disc space with a small disc bulge which is left eccentric and causes mild narrowing of the left neural foramen. L2-L3: There is loss of intervertebral disc space with ligamentum flavum infolding and a small disc bulge. No significant canal narrowing. There is mild bilateral neural foraminal narrowing. L3-L4: Unremarkable. No significant disc disease. No stenosis. L4-L5: There is loss of intervertebral disc space with a mild disc bulge. Mild bilateral neural foraminal narrowing. No canal narrowing. L5-S1: Loss of intervertebral disc space without significant canal or neural foraminal narrowing. Other findings: There are multilevel degenerative changes. IMPRESSION: Pathologic fracture of the T12 vertebral body without retropulsion into the canal. Additional multilevel degenerative changes as detailed above. Electronically signed by: Bud Chappell MD 02/25/23 02:48 AM Brain MRI 02/25/23 23:18 Exam(s): MRI HEAD W/WO Contrast EXAM: MR Head Without and With Intravenous Contrast CLINICAL HISTORY: Reason for exam: ams, melanoma w/ mets. TECHNIQUE: Magnetic resonance images of the head/brain without and with intravenous contrast in multiple planes. CONTRAST: Contrast must be dictated COMPARISON: CT from earlier the same evening. FINDINGS: Limitations: The examination is mildly limited by motion artifact. Brain: There are multiple enhancing masses throughout the parenchyma most compatible with intra-axial metastatic disease. For example, 0.8 cm left frontal lesion (image 95 series 21), 1 cm left temporal lesion (image 73 series 21). No hemorrhage. No acute infarct. Ventricles: Unremarkable. No ventriculomegaly. Bones/joints: Unremarkable. Sinuses: Unremarkable as visualized. No acute sinusitis. Mastoid air cells: Unremarkable as visualized. No mastoid effusion. Orbits: Unremarkable as visualized. Other findings: No evidence for acute hemorrhage. IMPRESSION: Extensive intracranial metastatic disease. No evidence for hemorrhage. Electronically signed by: Bud Chappell MD 02/25/23 02:41 AM
[2023-02-25] MEDS: PANTOprazole 40 MG TAB PO SCH (19:59)
[2023-02-25] MEDS: BINIMETINIB 15 MG PO SCH (20:06)
[2023-02-25] MEDS: dexAMETHasone 6 MG in SYRINGE 0 ML IV SCH (21:01)
[2023-02-26] MEDS: PIPERACILLIN/TAZOBACTAM 4.5 GM CI (over 4 hours) IV SCH ×2 (01:27→08:37)
[2023-02-26 04:58] LABS: Basophils # (auto) 0.01 K/uL (0-0.2); Basophils % (auto) 0.1 %; Hematocrit (blood only) 34.1 % (42.0-52.0); Hemoglobin 10.8 g/dl (14.0-18.0); Immature Granulocytes # (auto) 0.04 K/uL (0.01-0.20); Immature Granulocytes % (auto) 0.4 %; Lymphocytes # (auto) 0.76 K/uL (1.2-3.4); Lymphocytes % (auto) 7.6 %; Mean Corpuscular Hemoglobin 24.6 pg (25.0-34.0); Mean Corpuscular Hgb Conc 31.7 g/dL (32.0-36.0); Mean Corpuscular Volume 77.7 fL (80.0-100.0); Mean Platelet Volume 10.6 fL (9.4-12.4); Monocytes # (auto) 0.64 K/uL (0.11-0.59); Monocytes % (auto) 6.4 %; Neutrophils # (auto) 8.52 K/uL (1.40-6.50); Neutrophils % (auto) 85.5 %; Platelet Count 260 K/uL (130-400); RDW Coefficient of Variation 19.9 % (11.5-14.5); RDW Standard Deviation 56.2 fL (36.4-46.3); Red Blood Count 4.39 M/uL (4.70-6.10); White Blood Count 9.97 K/ul (4.8-10.8)
[2023-02-26] MEDS: levETIRAcetam 500 MG in 0.9 % SODIUM CHLORIDE 100 ML IV SCH ×2 (05:00→17:30)
[2023-02-26] MEDS: LEVOTHYROXINE SODIUM 200 MCG TABLET PO SCH (05:00)
[2023-02-26 05:14] LABS: BUN Creatinine Ratio 10.5 (10-20); Calcium 9.4 mg/dl (8.6-10.3); Creatinine Clr Calc Pharmacy 75.9 ml/min; Est GFR (African American) 59.3 ml/min; Est GFR (Non-African American) 51.2 ml/min; Phosphorus 3.3 mg/dl (2.5-4.9); Potassium 4.3 mmol/L (3.5-5.1)
[2023-02-26] MEDS: BINIMETINIB 15 MG PO SCH ×2 (08:31→20:48)
[2023-02-26] MEDS: allopurinoL 300 MG TAB PO SCH (08:31)
[2023-02-26] MEDS: ENCORAFENIB 75 MG PO SCH (08:32)
[2023-02-26] MEDS: COLCHICINE 0.6 MG TAB PO SCH ×2 (08:32→20:49)
[2023-02-26] MEDS: PANTOprazole 40 MG TAB PO SCH ×2 (08:33→20:49)
--- NOTE | 2023-02-26 09:05 | Radiation OncologyConsultation ---
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 Found to have metastatic disease to the brain. He denies any issues with headaches or dizziness. He has had no change of vision. He did have nausea at the time of the seizure and 1 episode of vomiting. There has been no reoccurrence. MRI has revealed extensive metastatic disease. He also has a pathologic fracture of T12 . Currently does not have pain in this area. He has pain in his low back with movement. He is currently under the care of medical oncology at [place]. Dr. Patterson. His current treatment is an oral medication braftovi/mektovi. Our office was consulted to evaluate for radiation therapy. ATTENDING ADDENDUM: Assessment: Mr. Corey is a 52-year-old gentleman who presents with metastatic melanoma. The patient was initially diagnosed in 2019 treated with surgical resection of the primary lesion of the upper back in 2019 followed by adjuvant pembrolizumab and infliximab under the supervision of Dr. Patterson. The patient did suffer with progression of disease involving his neck. More recently, Dr. Patterson started the patient on braftovi/mektovi. The patient more recently presented to the emergency room with his daughter due to altered mental status. The patient was admitted to the hospital and found to have metastatic disease in the brain with potential leptomeningeal disease. The patient did have issue with seizure initially. The patient was also found to have metastatic disease involving the T12 vertebral body for which she is symptomatic with pain. The patient is currently stable and now presents to discuss the role of radiation therapy. Recommendation: Given potential leptomeningeal disease and widespread dissemination in the brain, recommendation is for palliative whole brain radiation therapy with consideration for Namenda in the outpatient setting. Additionally, palliative external beam radiation therapy to T12 vertebral body given the significant discomfort and pain in that area. Plan: 1. CT simulation for treatment planning for radiation therapy. 2. Continue dexamethasone. Recommend converting to 4 mg 3 times a day in the outpatient setting. 3. Medical oncology input appreciated. 4. Palliative care consultation could be beneficial. 5. Continue current pain management as per primary medical team. 6. Patient and family encouraged to call us with any further questions or concerns. Rationale/Explanation of Treatment: I explained the indications, alternatives, benefits, risks and side effects of external beam radiation therapy. I explain the most common side effects including but not limited to skin erythema, skin break down, hair loss, radiation necrosis, fatigue, short-term memory loss, decreased neurocognitive performance, cerebral edema, hearing loss, damage to cochlea structures, seizures, loss of sensory and or motor function. I explained the treatment planning process and what to expect before during and after treatment. I explained the indications, alternatives, benefits, risks and side effects of external beam radiation therapy. I then discussed radiation therapy side effects for treatment which include, but are not limited to, skin erythema, dry/moist desquamation of the skin, hyperpigmentation, telangiectasias, damage to the heart and development of cardiovascular disease, damage to the lungs including radiation pneumonitis, pulmonary fibrosis, decrease in pulmonary function, cough, fistula formation, tracheal stenosis, esophageal stenosis, esophageal perforation, dysphagia, nausea, vomiting, ulcers in stomach/bowel, gastritis, gastric perforation, bowel perforation, bowel obstruction, weight loss, dehydration, decreased appetite, liver damage including hepatitis and liver failure, damage to the kidneys including decreased renal function and renal failure, spinal cord damage including myelopathy, fatigue and secondary malignancy. History of Present Illness Reason for Consultation: Brain metastasis Requesting Physician: Dr. Baird Attending Physician: Hortensia Nuñez DO History of Present Illness 10/28/2020. Left upper back malignant melanoma. 4.1 mm deep melanoma with ulceration. 12/24/2020. Status post wide local excision and sentinel lymph node biopsy. Final stage IIIC ([id number]). 01/2021. Enlarging mass left neck. 03/04/2021. Biopsy of neck mass shows melanoma. 02/2021. CT chest abdomen pelvis and brain MRI no evidence of disease. 02/2021. Initiation of immune of therapy with pembrolizumab. 04/2021. Increased size of the neck nodule. Imlygic was added. 09/2021. Development of autoimmune colitis. Treated with prednisone. 11/18/2021. Status post completion of 2 cycles of infliximab. 11/2021. Development of autoimmune hepatitis. 04/2020. PET/CT. Right upper lung nodule increasing in size. New right hilar adenopathy. Left inguinal node and soft tissue lesion left posterior thigh. 04/2022. Enlarging left inguinal lymph node. Positive for malignant cells. Continues on Braftovi/mektovi 02/24/2023. Development of confusion. He was brought to the emergency room and had a seizure. 02/24/2023. CT of the head without contrast. Findings suggesting extensive intracranial metastatic disease. Definite hemorrhage is not seen but hemorrhage into a metastasis is possible. Further evaluation with contrast-enhanced MRI may provide more information. 02/25/2023. CT of the brain with contrast. IMPRESSION: 1. Redemonstrated foci of increased attenuation along the cortical jefferson matter of the bilateral frontal and parietal lobes, left greater than right. Findings may be due to known metastatic deposits for melanoma. Increased attenuation may relate to superimposed hemorrhage. This is grossly stable from prior. 2. Consider MRI if there is further concern. 3. Small vessel ischemic/degenerative changes. 4. Cerebral and cerebellar atrophy. 02/25/2023. MRI of the brain. Extensive intracranial metastatic disease. No evidence of hemorrhage. 02/25/2023. MRI of the lumbar spine. Pathologic fracture of the T12 vertebrae without retropulsion into the canal. Additional multilevel degenerative changes. Allergies Allergy/AdvReac Type Severity Reaction Status Date / Time No Known Allergies Allergy Unverified 02/25/23 00:27 Home Medications Medication Instructions Recorded Confirmed Type apixaban 5 mg tablet (Eliquis) 5 mg PO BID 08/25/22 02/25/23 History levothyroxine 200 mcg tablet 200 mcg PO DAILYBB 08/25/22 02/25/23 History prednisone 10 mg tablet 10 mg PO DAILY 08/25/22 02/25/23 History binimetinib 15 mg tablet (Mektovi) 45 mg PO Q12H 08/26/22 02/25/23 History encorafenib 75 mg capsule 450 mg PO QAM 08/26/22 02/25/23 History (Braftovi) allopurinol 300 mg tablet 300 mg PO QAM 02/25/23 02/25/23 History amlodipine 5 mg-benazepril 10 mg 1 cap PO QAM PRN Hypertension 02/25/23 02/25/23 History capsule celecoxib 100 mg capsule 100 mg PO BID PRN Pain 02/25/23 02/25/23 History colchicine 0.6 mg tablet 0.6 mg PO AMPM 02/25/23 02/25/23 History cyclobenzaprine 10 mg tablet 10 mg PO TID PRN Spasms 02/25/23 02/25/23 History ferrous sulfate 325 mg (65 mg 325 mg PO BID 02/25/23 02/25/23 History iron) tablet,delayed release pantoprazole 40 mg tablet,delayed 40 mg PO BID 02/25/23 02/25/23 History release Patient History Medical History Hypertension Melanoma Surgical History Hx of knee surgery Family History Other Family history non-contributory Social History Smoking Status: Never smoker Second Hand Exposure: No; Hx Alcohol Use: Yes Alcohol type: beer Hx Substance Use: No Preferred Language: Yoruba Communication Ability: Impaired 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 TREATMENT: Review of Systems Review of Systems: 13 point review of systems was completed and are complete consistent with the history of present illness. No other additional findings. Patient denies headaches prior to admission. He did have nausea prior to the seizure. He has had some back pain. This is typically in the lower back. Over the past day he has noted low back discomfort with rolling from side to side. Physical Exam Constitutional: WD/WN, vitals as above Eyes: EOM intact bilaterally ENMT: Ears: no hearing impairment Neck: trachea midline, no thyromegaly Respiratory: normal respiratory effort, lungs clear to auscultation Cardiovascular: RRR, no murmur, no edema Gastrointestinal (Abdomen): normal bowel sounds, soft, nontender, no hepatosplenomegaly Skin: no rashes, warm and dry Neurologic: patellar DTR's 2+ bilat, sensation intact and PERRL, EOMI, accommodation nl, no face palsy, no dysarthria Normal strength and coordination. Psychiatric: A+Ox3, euthymic affect Time Spent Midlevel I spent [20] minutes in preparation for this follow up evaluation including reviewing all the clinical records, reviewing laboratory studies, pathology reports and imaging results. I spent [20] minutes with direct face to face interaction with the patient and/or family including performing a physical exam and answering all questions. I spent [15] minutes documenting this patient's visit. Attending I spent 15 minutes in preparation for this consultation including reviewing all the clinical records, reviewing laboratory studies, pathology reports and imaging results. I spent 30 minutes with direct face to face interaction with the patient and/or family including performing a physical exam and answering all questions. I spent 10 minutes documenting this patient's visit. I spent 10 minutes reviewing the case with radiology. 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
--- NOTE | 2023-02-26 10:02 | Hospitalist Progress Note ---
Date of Service February 26, 2023 Assessment & Plan (1) Seizure: Plan: New onset seizure with mets to brain and new pathologic fracture of T12. Radiation oncology consulted for treatment. Cont Keppra, seizure precautions. EEG performed with results pending. Will wean down on decadron with no evidence of edema on the brain MRI. No DVT prophylaxis and no Celebrex to prevent intracranial bleeding--currently no evidence of hemorrhage on the MRI. 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 Continue immunotherapy per current regimen and plan as above. (3) Acute metabolic encephalopathy: Plan: 2/2 brain mets and seizure activity followed by Ativan. Resolved and now back to baseline. Advised family that confusion may return. (4) Pathologic fracture of thoracic vertebrae: Plan: Consider XRT to spine. Rad onc consulted. (5) Hypothyroidism: Plan: chronic well controlled per TSH Nov 16 in outpatient record review. Cont home levothyroxine. (6) Hypertension: Plan: chronic, around goal. As daughter and patient were treating BP with PRN antihypertensives, and report intermittent syncope with medication use, this will be stopped and will closely monitor BP, treating only if more elevated around >160. Low salt diet. (7) Gout: Plan: chronic, no evidence of acute flare. Cont colchicine per home regimen. (8) Current use of buttermaker helper anticoagulation: Plan: Apixaban for h/o DVT on hold in setting of brain mets. (9) Chronic steroid use: Plan: Takes chronic prednisone because when he would get treatment infusions for melanoma, he would become very swollen. The infusions were stopped approx 6 months ago but he remains on prednisone 10mg PO daily. Cont this once we wean off the decadron above. DVT proph-SCDs/ambulation Full Code Dispo-cont PCU, pending PT/OT recommendations. Hortensia Nuñez DO [facility] Hospitalist Admission and Anticipated Discharge Date Admission Date: February 25, 2023 Subjective 52 yo M presents with acute back pain, vomiting and new onset seizure 2/2 rain metastases He is mentating at baseline and reports feeling well Reports the back pain is present, and still having some difficulty moving around in bed Daughter reports some hallucinations overnight tolerating PO, no BM, urinating without issues getting set up for rad onc today Review of Systems Review of Systems: All systems were reviewed and negative except as indicated on HPI above. Physical Exam Physical Exam: CONSTITUTIONAL: WNWD, vitals as above, generally well-appearing, NAD EYES: normal conjunctivae, no scleral icterus ENT: external ear and nose normal, oropharynx clear, mucous membranes moist. NECK: trachea midline RESPIRATORY: clear to auscultation bilaterally, no crackles, rales or wheezes, normal respiratory effort CARDIOVASCULAR: regular rate and rhythm, S1 and 2 heard without murmurs, gallops or rubs, no JVD, no peripheral edema CHEST: inspection of chest was normal GASTROINTESTINAL: soft, nontender, ND, no guarding MUSCULOSKELETAL: strength 5/5 throughout, head is normocephalic and atraumatic SKIN: warm and dry, +vitiligo NEUROLOGIC: CN 2-12 grossly intact, no sensory deficit, normal cognition, normal speech, no tremor PSYCHIATRIC: alert cooperative and oriented to person, place and time. Euthymic mood, makes good eye contact, language grossly intact, recent and remote memory grossly intact. Results & Data Results & Data Vital Signs (Past 12 Hours) Vital Signs Temp Pulse Resp BP Pulse Ox 02/26/23 06:00 72 21 96 02/26/23 06:00 143/98 H 02/26/23 05:30 74 25 H 98 02/26/23 05:00 72 14 98 02/26/23 04:30 83 20 96 02/26/23 04:00 84 20 96 02/26/23 04:00 139/95 02/26/23 03:50 77 17 98 02/26/23 03:50 123/95 02/26/23 03:30 69 21 96 02/26/23 03:01 145/100 H 02/26/23 03:01 58 L 17 98 02/26/23 03:00 63 17 99 02/26/23 02:30 73 21 96 02/26/23 02:00 74 19 94 02/26/23 02:00 119/84 02/26/23 01:30 70 22 95 02/26/23 01:01 132/85 02/26/23 01:01 66 22 95 02/26/23 01:00 65 23 96 02/26/23 00:30 72 22 94 02/26/23 00:01 75 20 97 02/26/23 00:01 154/87 H 02/26/23 00:00 87 27 H 99 02/25/23 23:30 76 24 94 02/26/23 03:50 36.7 C 02/26/23 00:00 68 02/25/23 23:12 83 22 95 02/25/23 23:12 124/86 02/25/23 23:00 79 22 93 02/25/23 22:30 80 24 96 02/25/23 23:14 36.8 C Laboratory Results Short CBC 02/26/23 Range/Units 04:28 WBC 9.97 (4.8-10.8) K/ul Hgb 10.8 L (14.0-18.0) g/dl Hct 34.1 L (42.0-52.0) % Plt Count 260 (130-400) K/uL BMP 02/26/23 04:28 Sodium 135 L Potassium 4.3 Chloride 105 Carbon Dioxide 22 BUN 16 Creatinine 1.53 H Glucose 115 H Calcium 9.4 Medications Administered Current Inpatient Medications Allopurinol (Allopurinol 300 Mg Tab) 300 mg PO QAM [facility] Stop: 03/27/23 08:59 Last Admin: 02/26/23 08:31 Dose: 300 mg Binimetinib (Binimetinib 15 Mg Tab) 45 mg PO BID JESSICA Stop: 03/27/23 20:59 Last Admin: 02/26/23 08:31 Dose: 45 mg Colchicine (Colchicine 0.6 Mg Tab) 0.6 mg PO BID JESSICA Stop: 03/27/23 08:59 Last Admin: 02/26/23 08:32 Dose: 0.6 mg Cyclobenzaprine HCl (Cyclobenzaprine Hcl 10 Mg Tab) 10 mg PO TID PRN PRN Reason: Spasms Stop: 03/27/23 14:30 Encorafenib (Encorafenib 75 Mg Cap) 450 mg PO QAM JESSICA Stop: 03/28/23 08:59 Last Admin: 02/26/23 08:32 Dose: 450 mg Levetiracetam 500 mg/ Sodium (Chloride) 105 mls @ 420 mls/hr IV Q12H JESSICA Stop: 03/27/23 17:59 Last Infusion: 02/26/23 05:49 Dose: Infused Dexamethasone 6 mg/ Syringe 1.5 mls @ 1 mls/min IV Q12H JESSICA Stop: 03/27/23 21:59 Last Admin: 02/25/23 21:01 Dose: 1 mls/min Levothyroxine Sodium (Levothyroxine Sodium 200 Mcg Tablet) 200 mcg PO DAILYBB [facility] Stop: 03/27/23 07:14 Last Admin: 02/26/23 05:00 Dose: 200 mcg Lorazepam (Lorazepam 2 Mg/1 Ml Vial) 2 mg IV Q2H PRN PRN Reason: Breakthrough Seizures Stop: 03/27/23 06:56 Pantoprazole Sodium (Pantoprazole 40 Mg Tab) 40 mg PO BID [facility] Stop: 03/27/23 20:59 Last Admin: 02/26/23 08:33 Dose: 40 mg
[2023-02-26] MEDS: dexAMETHasone 6 MG in SYRINGE 0 ML IV SCH (10:20)
[2023-02-26] MEDS: CYCLOBENZAPRINE HCL 10 MG TAB PO PRN (14:59)
--- NOTE | 2023-02-26 16:06 | Electroencephalogram ---
EEG Procedure Note Date of Service February 26, 2023 Start / End Times Start Time: 07:49 End Time: 08:09 Referring Physician James Parmar History The patient with melanoma, metastatic to brain, presented with mental status change, seizure-like activity. Home Medication List Medication Instructions Recorded Confirmed Type apixaban 5 mg tablet (Eliquis) 5 mg PO BID 08/25/22 02/25/23 History levothyroxine 200 mcg tablet 200 mcg PO DAILYBB 08/25/22 02/25/23 History prednisone 10 mg tablet 10 mg PO DAILY 08/25/22 02/25/23 History binimetinib 15 mg tablet (Mektovi) 45 mg PO Q12H 08/26/22 02/25/23 History encorafenib 75 mg capsule 450 mg PO QAM 08/26/22 02/25/23 History (Braftovi) allopurinol 300 mg tablet 300 mg PO QAM 02/25/23 02/25/23 History amlodipine 5 mg-benazepril 10 mg 1 cap PO QAM PRN Hypertension 02/25/23 02/25/23 History capsule celecoxib 100 mg capsule 100 mg PO BID PRN Pain 02/25/23 02/25/23 History colchicine 0.6 mg tablet 0.6 mg PO AMPM 02/25/23 02/25/23 History cyclobenzaprine 10 mg tablet 10 mg PO TID PRN Spasms 02/25/23 02/25/23 History ferrous sulfate 325 mg (65 mg 325 mg PO BID 02/25/23 02/25/23 History iron) tablet,delayed release pantoprazole 40 mg tablet,delayed 40 mg PO BID 02/25/23 02/25/23 History release Inpatient Medication List Allopurinol (Allopurinol 300 Mg Tab) 300 mg PO QAM [facility]ESSICA Stop: 03/27/23 08:59 Last Admin: 02/26/23 08:31 Dose: 300 mg Documented By: Admin: 02/25/23 08:21 Dose: Not Given Documented By: [id number] Binimetinib (Binimetinib 15 Mg Tab) 45 mg PO BID JESSICA Stop: 03/27/23 20:59 Last Admin: 02/26/23 08:31 Dose: 45 mg Documented By: Admin: 02/25/23 20:06 Dose: 45 mg Documented By: DILMA Colchicine (Colchicine 0.6 Mg Tab) 0.6 mg PO BID JESSICA Stop: 03/27/23 08:59 Last Admin: 02/26/23 08:32 Dose: 0.6 mg Documented By: Admin: 02/25/23 20:00 Dose: 0.6 mg Documented By: Admin: 02/25/23 08:21 Dose: Not Given Documented By: [id number] Cyclobenzaprine HCl (Cyclobenzaprine Hcl 10 Mg Tab) 10 mg PO TID PRN PRN Reason: Spasms Stop: 03/27/23 14:30 Last Admin: 02/26/23 14:59 Dose: 10 mg Documented By: OSCAR Encorafenib (Encorafenib 75 Mg Cap) 450 mg PO QAM [facility]ESSICA Stop: 03/28/23 08:59 Last Admin: 02/26/23 08:32 Dose: 450 mg Documented By: OSCAR Levetiracetam 500 mg/ Sodium (Chloride) 105 mls @ 420 mls/hr IV Q12H JESSICA Stop: 03/27/23 17:59 Last Infusion: 02/26/23 05:49 Dose: 0 mls/hr Documented By: Admin: 02/26/23 05:00 Dose: 420 mls/hr Documented By: Infusion: 02/25/23 19:18 Dose: 0 mls/hr Documented By: [id number] Admin: 02/25/23 18:02 Dose: 420 mls/hr Documented By: [id number] Dexamethasone 6 mg/ Syringe 1.5 mls @ 1 mls/min IV Q12H JESSICA Stop: 03/27/23 21:59 Last Admin: 02/26/23 10:20 Dose: 1 mls/min Documented By: Admin: 02/25/23 21:01 Dose: 1 mls/min Documented By: DILMA Levothyroxine Sodium (Levothyroxine Sodium 200 Mcg Tablet) 200 mcg PO DAILYBB [facility]ESSICA Stop: 03/27/23 07:14 Last Admin: 02/26/23 05:00 Dose: 200 mcg Documented By: Admin: 02/25/23 07:47 Dose: Not Given Documented By: [id number] Pantoprazole Sodium (Pantoprazole 40 Mg Tab) 40 mg PO BID JESSICA Stop: 03/27/23 20:59 Last Admin: 02/26/23 08:33 Dose: 40 mg Documented By: Admin: 02/25/23 19:59 Dose: 40 mg Documented By: TMG Discontinued Medications Amlodipine Besylate (Amlodipine Besylate 5 Mg Tab) 5 mg PO DAILY JESSICA Stop: 03/27/23 08:59 Last Admin: 02/25/23 08:21 Dose: Not Given Documented By: [id number] Dexamethasone Sodium Phosphate (DexamethasonePf 10 Mg/Ml Vial) 10 mg IV NOW ONE Stop: 02/25/23 04:57 Last Admin: 02/25/23 05:35 Dose: 10 mg Documented By: MED Enalapril Maleate (Enalapril Maleate 10 Mg Tab) 10 mg PO DAILY JESSICA Stop: 03/27/23 08:59 Last Admin: 02/25/23 08:21 Dose: Not Given Documented By: [id number] Gadobutrol (Gadobutrol 65ml Vial) 12.5 ml IV ONCE ONE Stop: 02/25/23 02:26 Last Admin: 02/25/23 02:25 Dose: 12.5 ml Documented By: CHRYSTAL Sodium Chloride (Nss 1000ml) 1,000 mls @ 999 mls/hr IV .Q1H1M ONE Stop: 02/24/23 23:14 Last Infusion: 02/24/23 23:44 Dose: 0 mls/hr Documented By: bulb packer: 02/24/23 22:23 Dose: 999 mls/hr Documented By: MED Piperacillin Sod/Tazobactam Sod (Zosyn) 4.5 gm in 120 mls @ 240 mls/hr IV NOW ONE Stop: 02/24/23 22:46 Last Infusion: 02/24/23 23:44 Dose: 0 mls/hr Documented By: bulb packer: 02/24/23 23:02 Dose: 240 mls/hr Documented By: MED Acetaminophen (Ofirmev) 1,000 mg in 100 mls @ 400 mls/hr IV NOW STA Stop: 02/25/23 03:31 Last Infusion: 02/25/23 03:35 Dose: 0 mls/hr Documented By: bulb packer: 02/25/23 03:19 Dose: 400 mls/hr Documented By: MED Levetiracetam 2,000 mg/ Sodium (Chloride) 270 mls @ 999 mls/hr IV NOW STA Stop: 02/25/23 05:12 Last Infusion: 02/25/23 07:47 Dose: 0 mls/hr Documented By: [id number] Admin: 02/25/23 06:21 Dose: 999 mls/hr Documented By: [email or web address] Sodium Chloride (Nss 1000ml) 1,000 mls @ 125 mls/hr IV .Q8H JESSICA Stop: 03/27/23 06:56 Last Infusion: 02/25/23 14:33 Dose: 0 mls/hr Documented By: [id number] Admin: 02/25/23 07:56 Dose: 125 mls/hr Documented By: [id number] Dexamethasone 6 mg/ Syringe 1.5 mls @ 1 mls/min IV Q6H JESSICA Stop: 03/27/23 10:59 Last Admin: 02/25/23 11:41 Dose: 1 mls/min Documented By: [id number] Pantoprazole Sodium 40 mg/ (Syringe) 10 mls @ 5 mls/min IV BID JESSICA Stop: 03/27/23 08:59 Last Admin: 02/25/23 08:34 Dose: 5 mls/min Documented By: [id number] Piperacillin Sod/Tazobactam (Sod 4.5 gm/ Dextrose) 120 mls @ 30 mls/hr IV Q8H JESSICA; Protocol Stop: 03/04/23 07:14 Last Infusion: 02/26/23 10:09 Dose: 0 mls/hr Documented By: Admin: 02/26/23 08:37 Dose: 30 mls/hr Documented By: Infusion: 02/26/23 05:49 Dose: 0 mls/hr Documented By: Admin: 02/26/23 01:27 Dose: 30 mls/hr Documented By: Infusion: 02/25/23 21:01 Dose: 0 mls/hr Documented By: Admin: 02/25/23 16:47 Dose: 30 mls/hr Documented By: [id number] Infusion: 02/25/23 12:14 Dose: 0 mls/hr Documented By: [id number] Admin: 02/25/23 07:56 Dose: 30 mls/hr Documented By: [id number] Lorazepam (Lorazepam 2 Mg/1 Ml Vial) Confirm Administered Dose 2 mg .ROUTE .STK- MED ONE Stop: 02/25/23 04:53 Last Admin: 02/25/23 05:32 Dose: Not Given Documented By: MED Lorazepam (Lorazepam 2 Mg/1 Ml Vial) 2 mg IV NOW STA Stop: 02/25/23 04:57 Last Admin: 02/25/23 05:10 Dose: 2 mg Documented By: MED Miscellaneous (Icu Protocol For Hyperglycemia) 1 each N/A ACHS JESSICA Stop: 02/27/23 07:29 Last Admin: 02/25/23 11:40 Dose: Not Given Documented By: [id number] Admin: 02/25/23 07:48 Dose: Not Given Documented By: [id number] Miscellaneous (Encorafenib~Order Awaiting Action) 1 each N/A QS JESSICA Stop: 03/27/23 07:14 Last Admin: 02/25/23 17:27 Dose: Not Given Documented By: [id number] Admin: 02/25/23 07:47 Dose: Not Given Documented By: [id number] Miscellaneous (Binimetinib~Order Awaiting Action) 1 each N/A QS JESSICA Stop: 03/27/23 07:59 Last Admin: 02/25/23 17:27 Dose: Not Given Documented By: [id number] Admin: 02/25/23 07:48 Dose: Not Given Documented By: [id number] Description This is a 21 electrode EEG with a single channel dedicated to limited EKG. The electrodes were placed in accordance with the International 10-20 system. Interpretation During restful wakefulness, there is intermittent, up to 8 Hz posterior activity, attenuates with eye opening bilaterally. Background activity shows good organization, however, there is intermittent, right frontal slowing, with sharply contoured waves and triphasic formation. This activity does not evolve into electrographic seizure. Photic stimulations vaguely induce posterior driving responses bilaterally. Hyperventilation is not attempted. There is no sleep pattern captured. There are no clinical or electrographic seizures during the study. Clinical Correlation This is an abnormal EEG, recorded in wakefulness only, due to a right frontal slowing and intermittent sharply contoured waves in triphasic formation. Such activity is suggestive of underlying structural pathology, with potential epileptogenic focus. There is no electrographic seizures during the study.
--- NOTE | 2023-02-26 17:06 | Neurology Progress Note ---
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 There was no obvious hemorrhagic conversion. There is no significant cerebral edema. Radiation therapy is planned. Recommendations/plan: We will increase Keppra dosage to 750 mg twice a day for seizure prevention. Seizure precautions. Please recontact with neurology for any future neurological concerns. We will sign off. (2) Acute metabolic encephalopathy: Plan: Impression: The patient was very confused and disoriented yesterday. He vomited multiple times, and was acting weird. Such mental status change is likely multifactorial secondary to several brain metastases, with or without complex partial seizures. Current chemotherapy might induce mental status change as well. Mental status has been improved back to patient's baseline. He still gets visual hallucinations and evening time confusion. Recommendations/plan: As seen above. (3) Pathologic fracture of thoracic vertebrae: (4) Current use of local intermodal truck driver anticoagulation: Admission and Anticipated Discharge Date Admission Date: February 25, 2023 Subjective The patient's mental status has been improved significantly since admission. However, according to daughter, the patient gets visual hallucinations, and evening time confusion. Currently alert and oriented. EEG showed right frontal potential epileptogenic focus. The patient has not had any tonic-clonic activity since admission. Radiation therapy is scheduled for brain metastases and T12 spinal bony invasion. Review of Systems Review of Systems: All systems reviewed & are unremarkable except as noted in Subjective Physical Exam Physical Exam: General Examination: Constitutional: Well developed person in no acute distress. HENT: Normal exam with inspection. CV: Hearth rhythm is regular. Neck: Supple, no carotid bruits. Lungs: Non-labored and comfortable breathing. Abdomen: Soft, non-tender, non-distended. Skin: No rash or ecchymosis. Extremities: No edema or cyanosis NEUROLOGICAL EXAMINATION: Mental Status: Alert and oriented to place, person and time. Cranial Nerves: II-XII are intact. No nystagmus. Funduscopy: Normal looking optic discs. Motor: 5/5 in all extremities without asymmetry. Tone: Normal without spasticity or rigidity. Sensory: Intact to all sensory modalities. Coordination: No dysmetria with FTN testing. Speech: Fluent. Comprehension is intact. Gait: Not assessed Musculoskeletal: Normal muscle bulk, no atrophy. Results & Data Vital Signs (Past 12 Hours) Vital Signs Temp Pulse Pulse Pulse Resp BP BP 02/26/23 15:42 36.6 C 70 21 166/111 H 02/26/23 15:02 67 22 167/110 H 02/26/23 08:00 36.5 C 75 20 135/96 02/26/23 06:00 72 21 02/26/23 06:00 143/98 H 02/26/23 05:30 74 25 H Pulse Ox O2 Del Method 02/26/23 15:42 97 Room Air 02/26/23 15:02 97 Room Air 02/26/23 08:00 96 Room Air 02/26/23 06:00 96 02/26/23 06:00 02/26/23 05:30 98 Laboratory Results Laboratory Results - last 24 hr 02/26/23 02/26/23 04:28 04:28 WBC 9.97 RBC 4.39 L Hgb 10.8 L Hct 34.1 L MCV 77.7 L MCH 24.6 L MCHC 31.7 L RDW Std Deviation 56.2 H RDW Coeff of Hieu 19.9 H Plt Count 260 MPV 10.6 Immature Gran % (Auto) 0.4 Neut % (Auto) 85.5 Lymph % (Auto) 7.6 Sherman % (Auto) 6.4 Eos % (Auto) 0.0 Baso % (Auto) 0.1 Neut # (Auto) 8.52 H Lymph # (Auto) 0.76 L Sherman # (Auto) 0.64 H Eos # (Auto) 0.00 Baso # (Auto) 0.01 Immature Gran # (Auto) 0.04 Sodium 135 L Potassium 4.3 Chloride 105 Carbon Dioxide 22 Anion Gap 8 BUN 16 Creatinine 1.53 H Est Cr Clr Drug Dosing 75.9 Est GFR ( Amer) 59.3 Est GFR (Non-Af Amer) 51.2 BUN/Creatinine Ratio 10.5 Glucose 115 H Calcium 9.4 Phosphorus 3.3 Magnesium 2.0 Diagnostic Findings Chest X-Ray 02/24/23 22:14 XR chest 1V portable CLINICAL HISTORY: ams, CA TECHNIQUE: Single frontal radiograph of the chest was obtained. Comparison: Comparison is made to chest radiograph 08/25/2022 FINDINGS: No lines and tubes are seen. Cardiomegaly is noted. Lungs are underinflated but clear. No evidence of pleural effusion or pneumothorax. IMPRESSION: No acute chest disease. ACT 112: Negative or not required by law. Electronically signed by: Ilan Gray M.D. 02/25/2023 8:[address] 02/24/23 22:14 Exam(s): CT HEAD Without Contrast EXAM: CT Head Without Intravenous Contrast CLINICAL HISTORY: Reason for exam: AMS, Melanoma stage 4. TECHNIQUE: Axial computed tomography images of the head/brain without intravenous contrast. CTDI is 36.51 mGy and DLP is 537.48 mGy-cm. Automated exposure control was utilized for the study. A dose lowering technique was utilized adhering to the principles of ALARA. COMPARISON: Dated 08/25/22 FINDINGS: Brain: There are multiple parenchymal foci of high density which do not have a configuration suggestive of hemorrhage and are concerning for intracranial metastatic disease. A hemorrhagic metastasis would be difficult to exclude. No significant white matter disease. Ventricles: Unremarkable. No ventriculomegaly. Bones/joints: Unremarkable. No acute fracture. Soft tissues: Unremarkable. Sinuses: Unremarkable as visualized. No acute sinusitis. Mastoid air cells: Unremarkable as visualized. No mastoid effusion. IMPRESSION: Findings suggesting extensive intracranial metastatic disease. Definite hemorrhage is not seen but hemorrhage into a metastasis is possible. Further evaluation with contrast-enhanced MRI may provide more information. Electronically signed by: Bud Chappell MD 02/24/23 23:[address] 02/25/23 04:56 Exam(s): CT HEAD Without Contrast EXAM: CT Head Without Intravenous Contrast CLINICAL HISTORY: Reason for exam: sz, ams, on eliquis. TECHNIQUE: Axial computed tomography images of the head/brain without intravenous contrast. CTDI is 36.3 mGy and DLP is 614.27 mGy-cm. Automated exposure control was utilized for the study. A dose lowering technique was utilized adhering to the principles of ALARA. COMPARISON: MRI brain dated mar 27 2023 FINDINGS: Brain: Redemonstrated foci of increased attenuation along the cortical jefferson matter of the bilateral frontal and parietal lobes, left greater than right. Findings may be due to known metastatic deposits for melanoma. Increased attenuation may relate to superimposed hemorrhage. This is grossly stable from prior. Areas of decreased attenuation in the deep cerebral white matter are consistent with small vessel ischemic/degenerative changes. The cerebral and cerebellar sulci are prominent consistent with brain atrophy. Ventricles: Unremarkable. No ventriculomegaly. Bones/joints: Unremarkable. No acute fracture. Soft tissues: Unremarkable. Vasculature: Atherosclerotic disease. Sinuses: Unremarkable as visualized. Mastoid air cells: Unremarkable as visualized. No mastoid effusion. Other findings: Consider MRI if there is further concern. IMPRESSION: 1. Redemonstrated foci of increased attenuation along the cortical jefferson matter of the bilateral frontal and parietal lobes, left greater than right. Findings may be due to known metastatic deposits for melanoma. Increased attenuation may relate to superimposed hemorrhage. This is grossly stable from prior. 2. Consider MRI if there is further concern. 3. Small vessel ischemic/degenerative changes. 4. Cerebral and cerebellar atrophy. Electronically signed by: Daniel Campa MD 02/25/23 06:14 AM Lumbar Spine MRI 02/25/23 22:14 Exam(s): MRI L SPINE W/WO Contrast EXAM: MR Lumbar Spine Without and With Intravenous Contrast CLINICAL HISTORY: Reason for exam: AMS, Melanoma stage 4, severe LBP cant move R leg. TECHNIQUE: Magnetic resonance images of the lumbar spine without and with intravenous contrast in multiple planes. CONTRAST: Contrast must be dictated COMPARISON: No relevant prior studies available. FINDINGS: Vertebrae: There is a pathologic fracture of the T12 vertebral body without evidence for retropulsion into the canal (image 10 series 14). Interspaces: There are scattered areas of disc desiccation. Spinal cord: Unremarkable. Normal signal. No abnormal enhancement. Soft tissues: Unremarkable. DISCS/SPINAL CANAL/NEURAL FORAMINA: L1-L2: There is loss of intervertebral disc space with a small disc bulge which is left eccentric and causes mild narrowing of the left neural foramen. L2-L3: There is loss of intervertebral disc space with ligamentum flavum infolding and a small disc bulge. No significant canal narrowing. There is mild bilateral neural foraminal narrowing. L3-L4: Unremarkable. No significant disc disease. No stenosis. L4-L5: There is loss of intervertebral disc space with a mild disc bulge. Mild bilateral neural foraminal narrowing. No canal narrowing. L5-S1: Loss of intervertebral disc space without significant canal or neural foraminal narrowing. Other findings: There are multilevel degenerative changes. IMPRESSION: Pathologic fracture of the T12 vertebral body without retropulsion into the canal. Additional multilevel degenerative changes as detailed above. Electronically signed by: Bud Chappell MD 02/25/23 02:48 AM Brain MRI 02/25/23 23:18 Exam(s): MRI HEAD W/WO Contrast EXAM: MR Head Without and With Intravenous Contrast CLINICAL HISTORY: Reason for exam: ams, melanoma w/ mets. TECHNIQUE: Magnetic resonance images of the head/brain without and with intravenous contrast in multiple planes. CONTRAST: Contrast must be dictated COMPARISON: CT from earlier the same evening. FINDINGS: Limitations: The examination is mildly limited by motion artifact. Brain: There are multiple enhancing masses throughout the parenchyma most compatible with intra-axial metastatic disease. For example, 0.8 cm left frontal lesion (image 95 series 21), 1 cm left temporal lesion (image 73 series 21). No hemorrhage. No acute infarct. Ventricles: Unremarkable. No ventriculomegaly. Bones/joints: Unremarkable. Sinuses: Unremarkable as visualized. No acute sinusitis. Mastoid air cells: Unremarkable as visualized. No mastoid effusion. Orbits: Unremarkable as visualized. Other findings: No evidence for acute hemorrhage. IMPRESSION: Extensive intracranial metastatic disease. No evidence for hemorrhage. Electronically signed by: Bud Chappell MD 02/25/23 02:41 AM
[2023-02-26] MEDS: dexAMETHasone 4 MG TAB PO SCH (20:49)
[2023-02-27] MEDS: CYCLOBENZAPRINE HCL 10 MG TAB PO PRN ×3 (03:04→16:47)
[2023-02-27 04:49] LABS: Basophils # (auto) 0.01 K/uL (0-0.2); Basophils % (auto) 0.1 %; Eosinophils # (auto) 0.02 K/uL (0-0.50); Eosinophils % (auto) 0.3 %; Hematocrit (blood only) 34.6 % (42.0-52.0); Hemoglobin 10.8 g/dl (14.0-18.0); Immature Granulocytes # (auto) 0.02 K/uL (0.01-0.20); Immature Granulocytes % (auto) 0.3 %; Lymphocytes # (auto) 1.06 K/uL (1.2-3.4); Lymphocytes % (auto) 14.4 %; Mean Corpuscular Hemoglobin 24.7 pg (25.0-34.0); Mean Corpuscular Hgb Conc 31.2 g/dL (32.0-36.0); Mean Platelet Volume 10.3 fL (9.4-12.4); Monocytes # (auto) 0.48 K/uL (0.11-0.59); Monocytes % (auto) 6.5 %; Neutrophils # (auto) 5.76 K/uL (1.40-6.50); Neutrophils % (auto) 78.4 %; Platelet Count 244 K/uL (130-400); RDW Coefficient of Variation 19.5 % (11.5-14.5); RDW Standard Deviation 55.4 fL (36.4-46.3); Red Blood Count 4.38 M/uL (4.70-6.10); White Blood Count 7.35 K/ul (4.8-10.8)
[2023-02-27] MEDS: levETIRAcetam 500 MG in 0.9 % SODIUM CHLORIDE 100 ML IV SCH (05:07)
[2023-02-27] MEDS: LEVOTHYROXINE SODIUM 200 MCG TABLET PO SCH (05:07)
[2023-02-27 05:08] LABS: BUN Creatinine Ratio 15.1 (10-20); Calcium 8.8 mg/dl (8.6-10.3); Creatinine Clr Calc Pharmacy 79.1 ml/min; Est GFR (African American) 62.7 ml/min; Est GFR (Non-African American) 54.1 ml/min; Phosphorus 2.6 mg/dl (2.5-4.9); Potassium 3.9 mmol/L (3.5-5.1)
--- NOTE | 2023-02-27 07:41 | Hospitalist Progress Note ---
Date of Service February 27, 2023 Assessment & Plan (1) Seizure: Plan: New onset seizure with mets to brain and new pathologic fracture of T12. Radiation oncology consulted for treatment-->planned to start 02/28. Cont Keppra, decadron, seizure precautions. EEG abnormal. Keppra increased to 750mg BID. [facility] [place]. [place]. Called him and spoke about case on 02/26. He prefers decadron BID to continue at discharge. No DVT prophylaxis and no Celebrex to prevent intracranial bleeding--currently no evidence of hemorrhage on the MRI. 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 Continue targeted cancer therapy and plan as above. f/u with [facility] [place]ology at discharge. (3) Acute metabolic encephalopathy: Plan: 2/2 brain mets and seizure activity followed by K[facility]. Resolved and now back to baseline. Advised family that confusion may return. To date he has been mentating clearly. (4) Pathologic fracture of thoracic vertebrae: Plan: Consider XRT to spine. Rad onc consulted. Hospital bed ordered-script sent to embedded case manager. Pt has a medical condition which requires positioning due to severe pain from pathologic fracture of thoracic vertebrae which is not feasible to accomplish with an ordinary bed in order to alleviate pain. (5) Hypothyroidism: Plan: chronic well controlled per TSH Nov 16 in outpatient record review. Cont home levothyroxine. (6) Hypertension: Plan: chronic, around goal. As daughter and patient were treating BP with PRN anti hypertensives, and report intermittent syncope with medication use, this will be stopped and will closely monitor BP, treating only if more elevated around >160. Low salt diet. (7) Gout: Plan: chronic, no evidence of acute flare. Cont colchicine per home regimen. Also takes allopurinol -unsure if this is for tumor lysis prevention or gout but will continue. (8) Current use of announcer anticoagulation: Plan: Apixaban for h/o DVT on hold in setting of brain mets. Stop at discharge. (9) Chronic steroid use: Plan: Takes chronic prednisone because when he would get treatment infusions for melanoma, he would become very swollen. The infusions were stopped approx 6 months ago but he remains on prednisone 10mg PO daily. Decardron taking the place of this for the time being. DVT proph-SCDs/ambulation Full Code Dispo- pending PT/OT recommendations. De-escalate from PCU to floor today I coordinated the plan with both the patient and the daughter who was at bedside today. All questions were answered to their satisfction. I spent a total [id number] coordinating, documenting, and providing care for this patient excluding time spent in the performance of separately billed ser emmanuel Nuñez DO [facility] Hospitalist Admission and Anticipated Discharge Date Admission Date: February 25, 2023 Subjective 52 yo M presents with acute back pain, vomiting and new onset seizure 2/2 brain metastases, melanoma +Back pain present that is not being treated effectively by the flexeril likes Tylenol which we will schedule discussed pain med options and going with oxycodone for breakthrough no BM since Thurs, so adding bowel regimen tolerating PO able to ambulate but with some pain XRT planned for am. denies AZUL or visual changes. Review of Systems Review of Systems: All systems were reviewed and negative except as indicated on HPI above. Physical Exam Physical Exam: CONSTITUTIONAL: WNWD, vitals as above, generally well-appearing, NAD EYES: normal conjunctivae, no scleral icterus ENT: external ear and nose normal, oropharynx clear, mucous membranes moist. NECK: trachea midline RESPIRATORY: clear to auscultation bilaterally, no crackles, rales or wheezes, normal respiratory effort CARDIOVASCULAR: regular rate and rhythm, S1 and 2 heard without murmurs, gallops or rubs, no JVD, no peripheral edema CHEST: inspection of chest was normal GASTROINTESTINAL: soft, nontender, ND, no guarding MUSCULOSKELETAL: strength 5/5 throughout, head is normocephalic and atraumatic SKIN: warm and dry, +vitiligo NEUROLOGIC: EOMI, CN 2-12 grossly intact, no sensory deficit, normal cognition, normal speech, no tremor PSYCHIATRIC: alert cooperative and oriented to person, place and time. Euthymic mood, makes good eye contact, language grossly intact, recent and remote memory grossly intact. Results & Data Results & Data Vital Signs (Past 12 Hours) Vital Signs Temp Pulse Resp BP 02/27/23 06:00 57 L 19 02/27/23 05:00 62 18 02/27/23 04:00 61 19 02/27/23 04:00 158/103 H 02/27/23 03:40 72 02/27/23 03:39 145/95 H 02/27/23 03:13 173/103 H 02/27/23 03:13 67 02/27/23 03:00 84 15 02/27/23 02:30 63 18 02/27/23 02:00 67 18 02/27/23 03:53 36.8 C 02/27/23 01:30 64 17 02/27/23 01:00 56 L 17 02/27/23 00:30 68 15 02/27/23 00:00 88 20 02/26/23 23:31 154/105 H 02/26/23 23:31 73 11 L 02/26/23 23:30 74 17 02/26/23 23:00 68 12 02/26/23 22:30 64 19 02/27/23 01:00 36.8 C 02/27/23 00:11 70 02/26/23 22:00 73 19 02/26/23 21:30 71 20 02/26/23 21:00 70 15 02/26/23 20:48 70 16 02/26/23 20:48 152/106 H 02/26/23 20:30 62 16 02/26/23 20:00 73 17 02/26/23 21:00 36.8 C Laboratory Results Short CBC 02/27/23 Range/Units 04:21 WBC 7.35 (4.8-10.8) K/ul Hgb 10.8 L (14.0-18.0) g/dl Hct 34.6 L (42.0-52.0) % Plt Count 244 (130-400) K/uL BMP 02/27/23 04:21 Sodium 134 L Potassium 3.9 Chloride 104 Carbon Dioxide 21 BUN 22 Creatinine 1.46 H Glucose 99 Calcium 8.8 Medications Administered Current Inpatient Medications Allopurinol (Allopurinol 300 Mg Tab) 300 mg PO QAM JESSICA Stop: 03/27/23 08:59 Last Admin: 02/26/23 08:31 Dose: 300 mg Binimetinib (Binimetinib 15 Mg Tab) 45 mg PO BID JESSICA Stop: 03/27/23 20:59 Last Admin: 02/26/23 20:48 Dose: 45 mg Colchicine (Colchicine 0.6 Mg Tab) 0.6 mg PO BID JESSICA Stop: 03/27/23 08:59 Last Admin: 02/26/23 20:49 Dose: 0.6 mg Cyclobenzaprine HCl (Cyclobenzaprine Hcl 10 Mg Tab) 10 mg PO TID PRN PRN Reason: Spasms Stop: 03/27/23 14:30 Last Admin: 02/27/23 03:04 Dose: 10 mg Dexamethasone (Dexamethasone 4 Mg Tab) 4 mg PO BID JESSICA Stop: 03/28/23 20:59 Last Admin: 02/26/23 20:49 Dose: 4 mg Encorafenib (Encorafenib 75 Mg Cap) 450 mg PO QAM JESSICA Stop: 03/28/23 08:59 Last Admin: 02/26/23 08:32 Dose: 450 mg Levetiracetam 500 mg/ Sodium (Chloride) 105 mls @ 420 mls/hr IV Q12H JESSICA Stop: 03/27/23 17:59 Last Infusion: 02/27/23 05:46 Dose: Infused Sodium Chloride (Nss 1000ml) 1,000 mls @ 125 mls/hr IV .Q8H [facility] Stop: 02/27/23 15:44 Levothyroxine Sodium (Levothyroxine Sodium 200 Mcg Tablet) 200 mcg PO DAILYBB [facility] Stop: 03/27/23 07:14 Last Admin: 02/27/23 05:07 Dose: 200 mcg Lorazepam (Lorazepam 2 Mg/1 Ml Vial) 2 mg IV Q2H PRN PRN Reason: Breakthrough Seizures Stop: 03/27/23 06:56 Pantoprazole Sodium (Pantoprazole 40 Mg Tab) 40 mg PO BID [facility] Stop: 03/27/23 20:59 Last Admin: 02/26/23 20:49 Dose: 40 mg
[2023-02-27] MEDS ORDERED: SODIUM CHLORIDE 0.9% 1000ML 1,000 ML IV SCH (07:45)
[2023-02-27] MEDS: PANTOprazole 40 MG TAB PO SCH ×2 (08:14→21:07)
[2023-02-27] MEDS: dexAMETHasone 4 MG TAB PO SCH ×2 (08:14→21:08)
[2023-02-27] MEDS: COLCHICINE 0.6 MG TAB PO SCH ×2 (08:14→21:08)
[2023-02-27] MEDS: allopurinoL 300 MG TAB PO SCH (08:14)
[2023-02-27] MEDS: ENCORAFENIB 75 MG PO SCH (08:15)
[2023-02-27] MEDS: BINIMETINIB 15 MG PO SCH ×2 (08:15→21:08)
[2023-02-27] MEDS ORDERED: oxyCODONE HCL IR 5 MG TAB (IMMEDIATE RELEASE) PO PRN (12:33)
[2023-02-27] MEDS ORDERED: POLYETHYLENE (MIRALAX) 17 GM PACK PO PRN (12:39)
[2023-02-27] MEDS ORDERED: oxyCODONE HCL IR 5 MG TAB (IMMEDIATE RELEASE) PO STA (12:40)
[2023-02-27] MEDS: ACETAMINOPHEN 500 MG TAB PO SCH ×2 (13:18→21:08)
[2023-02-27] MEDS ORDERED: levETIRAcetam 500 MG TAB PO SCH (18:00)
[2023-02-27] MEDS: levETIRAcetam 250 MG TAB PO SCH (18:35)
[2023-02-27] MEDS: oxyCODONE HCL IR 5 MG TAB (IMMEDIATE RELEASE) PO PRN (18:51)
[2023-02-27] MEDS ORDERED: amLODIPine BESYLATE 5 MG TAB PO ONE (18:52)
[2023-02-27] MEDS: DOCUSATE SODIUM 100 MG CAP PO SCH (21:08)
[2023-02-28] MEDS: oxyCODONE HCL IR 5 MG TAB (IMMEDIATE RELEASE) PO PRN ×4 (03:07→21:54)
[2023-02-28] MEDS: levETIRAcetam 250 MG TAB PO SCH ×2 (05:35→17:12)
[2023-02-28] MEDS: LEVOTHYROXINE SODIUM 200 MCG TABLET PO SCH (05:35)
[2023-02-28] MEDS: ACETAMINOPHEN 500 MG TAB PO SCH ×3 (05:36→21:54)
[2023-02-28 06:51] LABS: Basophils # (auto) 0.02 K/uL (0-0.2); Basophils % (auto) 0.4 %; Eosinophils # (auto) 0.08 K/uL (0-0.50); Eosinophils % (auto) 1.4 %; Hematocrit (blood only) 35.1 % (42.0-52.0); Immature Granulocytes # (auto) 0.03 K/uL (0.01-0.20); Immature Granulocytes % (auto) 0.5 %; Lymphocytes # (auto) 1.27 K/uL (1.2-3.4); Mean Corpuscular Hemoglobin 24.6 pg (25.0-34.0); Mean Corpuscular Hgb Conc 31.3 g/dL (32.0-36.0); Mean Corpuscular Volume 78.5 fL (80.0-100.0); Mean Platelet Volume 10.9 fL (9.4-12.4); Monocytes # (auto) 0.42 K/uL (0.11-0.59); Monocytes % (auto) 7.6 %; Neutrophils # (auto) 3.71 K/uL (1.40-6.50); Neutrophils % (auto) 67.1 %; Platelet Count 245 K/uL (130-400); RDW Coefficient of Variation 19.4 % (11.5-14.5); RDW Standard Deviation 54.9 fL (36.4-46.3); Red Blood Count 4.47 M/uL (4.70-6.10); White Blood Count 5.53 K/ul (4.8-10.8)
[2023-02-28 07:17] LABS: BUN Creatinine Ratio 15.8 (10-20); Calcium 8.7 mg/dl (8.6-10.3); Creatinine Clr Calc Pharmacy 78.4 ml/min; Est GFR (African American) 62.7 ml/min; Est GFR (Non-African American) 54.1 ml/min; Magnesium 2.1 mg/dl (1.7-2.4); Phosphorus 3.6 mg/dl (2.5-4.9)
[2023-02-28] MEDS: DOCUSATE SODIUM 100 MG CAP PO SCH ×2 (08:18→21:54)
[2023-02-28] MEDS: dexAMETHasone 4 MG TAB PO SCH ×2 (08:18→21:47)
[2023-02-28] MEDS: PANTOprazole 40 MG TAB PO SCH ×2 (08:18→21:47)
[2023-02-28] MEDS: allopurinoL 300 MG TAB PO SCH (08:18)
[2023-02-28] MEDS: amLODIPine BESYLATE 5 MG TAB PO SCH (08:18)
[2023-02-28] MEDS: COLCHICINE 0.6 MG TAB PO SCH ×2 (08:18→21:47)
[2023-02-28] MEDS: ENCORAFENIB 75 MG PO SCH (08:20)
[2023-02-28] MEDS: BINIMETINIB 15 MG PO SCH ×2 (08:20→21:48)
[2023-02-28] MEDS ORDERED: oxyCODONE/ACETAMINOPHEN 5mg/325mg TAB PO PRN (09:49)
[2023-02-28] MEDS: CYCLOBENZAPRINE HCL 10 MG TAB PO PRN (13:25)
[2023-02-28] MEDS ORDERED: hydrALAZINE HCL 25 MG TAB PO STA (15:47)
--- NOTE | 2023-02-28 17:04 | Hospitalist Progress Note ---
Date of Service February 28, 2023 Assessment & Plan (1) Seizure: Plan (1) Seizure: New onset seizure with mets to brain and new pathologic fracture of T12. Radiation oncology consulted for treatment-->started 02/28. Neuro Evaled - Cont Keppra 750 mg BID, decadron, seizure precautions. EEG abnormal. [facility] [place] Oncologist is Dr. Patterson. Prior attending called him and spoke about case on 02/26. He prefers decadron BID to continue at discharge. No DVT prophylaxis and no Celebrex to prevent intracranial bleeding--currently no evidence of hemorrhage on the MRI.F/u oncologist in 1 week upon DC. 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 Continue targeted cancer therapy and plan as above. f/u with [facility] [place] oncology at discharge. (3) Acute metabolic encephalopathy: 2/2 brain mets and seizure activity followed by Kadi. Resolved and now back to baseline. Family aware that confusion may return. To date he has been mentating clearly. (4) Pathologic fracture of thoracic vertebrae: Consider XRT to spine. Rad onc consulted.started 02/28. Per prior attending - Hospital bed ordered-script sent to caser. Pt has a medical condition which requires positioning due to severe pain from pathologic fracture of thoracic vertebrae which is not feasible to accomplish with an ordinary bed in order to alleviate pain. (5) Hypothyroidism: chronic well controlled per TSH Nov 16 in outpatient record review. Cont home levothyroxine. (6) Hypertension: chronic, around goal. As daughter and patient were treating BP with PRN antihypertensives, and report intermittent syncope with medication use, this will be stopped and will closely monitor BP, treating only if more elevated around >160. Low salt diet. (7) Gout: chronic, no evidence of acute flare. Cont colchicine per home regimen. Also takes allopurinol -unsure if this is for tumor lysis prevention or gout but will continue. 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 Stop at discharge. (9) Chronic steroid use: Takes chronic prednisone because when he would get treatment infusions for melanoma, he would become very swollen. The infusions were stopped approx 6 months ago but he remains on prednisone 10mg PO daily. Decadron taking the place of this for the time being. (10) HTN: borderline high BP, not much helped by steroid need/use. Benazepril on hold due to slight worsening of renal fxn (not yet VICKY per def). Will use metoprolol until benazepril can be reinstituted. IVF and labs in AM. DVT proph-SCDs/ambulation Full Code Dispo- PT/OT, CM to assist, will give gentle ivf to improve his renal fxn. likely dc pascale. Admission and Anticipated Discharge Date Admission Date: February 25, 2023 Subjective Patient seen and examined at bedside as a follow-up of new onset seizure on the background of melanoma metastatic to brain and new pathologic fracture of T12. Patient was sitting up in chair, on room air, NAD, reports pain getting better controlled, reports moving bowels yesterday and eating okay, denies headache or dizziness or chest pain or belly pain. Physical Exam Physical Exam: GENERAL: Alert and oriented x3. NAD, on RA. HEENT: No pallor, no icterus. Pupils equal, round and reactive to light. Oral mucosa moist. NECK: No JVD, no neck masses. HEART: S1 and S2 heard. Regular rate and rhythm. No murmur, no gallop. RESPIRATORY SYSTEM: Normal AP diameter. No accessory muscle use. No wheezing, no crackles. ABDOMEN: Soft, bowel sounds present, nontender, no distention. CENTRAL NERVOUS SYSTEM: No facial droop. Speech is clear. Obeys simple commands. Moves extremities. EXTREMITIES: No edema, no erythema seen. Skin: +vitiligo Results & Data Results & Data Vital Signs (Past 12 Hours) Vital Signs Temp Pulse Pulse Resp BP Pulse Ox O2 Del Method 02/28/23 15:17 36.7 C 94 H 18 156/108 H 96 Room Air 02/28/23 07:42 36.4 C L 65 18 165/94 H 96 Room Air
[2023-02-28] MEDS: SODIUM CHLORIDE 0.9% 1000ML 1,000 ML IV SCH (17:12)
[2023-02-28] MEDS: METOPROLOL TARTRATE 25 MG TAB PO SCH (21:48)
[2023-03-01] MEDS: oxyCODONE HCL IR 5 MG TAB (IMMEDIATE RELEASE) PO PRN ×2 (03:55→09:46)
[2023-03-01] MEDS: LEVOTHYROXINE SODIUM 200 MCG TABLET PO SCH (06:09)
[2023-03-01] MEDS: levETIRAcetam 250 MG TAB PO SCH ×2 (06:09→16:56)
[2023-03-01] MEDS: ACETAMINOPHEN 500 MG TAB PO SCH ×2 (06:14→12:49)
[2023-03-01 06:41] LABS: Calcium 8.7 mg/dl (8.6-10.3); Creatinine Clr Calc Pharmacy 89.9 ml/min; Est GFR (African American) 74.3 ml/min; Est GFR (Non-African American) 64.1 ml/min; Potassium 4.1 mmol/L (3.5-5.1)
[2023-03-01] MEDS: allopurinoL 300 MG TAB PO SCH (07:39)
[2023-03-01] MEDS: dexAMETHasone 4 MG TAB PO SCH (07:40)
[2023-03-01] MEDS: COLCHICINE 0.6 MG TAB PO SCH (07:40)
[2023-03-01] MEDS: PANTOprazole 40 MG TAB PO SCH (07:40)
[2023-03-01] MEDS: METOPROLOL TARTRATE 25 MG TAB PO SCH (07:40)
[2023-03-01] MEDS: BINIMETINIB 15 MG PO SCH (07:42)
[2023-03-01] MEDS: ENCORAFENIB 75 MG PO SCH (07:43)
[2023-03-01] MEDS: DOCUSATE SODIUM 100 MG CAP PO SCH (09:46)
[2023-03-01] MEDS: amLODIPine BESYLATE 5 MG TAB PO SCH (09:47)
[2023-03-01] MEDS: SODIUM CHLORIDE 0.9% 1000ML 1,000 ML IV SCH (09:50)
[2023-03-01] MEDS ORDERED: ENALAPRIL MALEATE 10 MG TAB PO ONE ×2 (10:36→14:30)
[2023-03-01] MEDS ORDERED: ONDANSETRON INJ 2 MG/ML 2 ML VIAL IV PRN (11:44)
[2023-03-01] MEDS ORDERED: ONDANSETRON INJ 2 MG/ML 2 ML VIAL ONE (11:49)
[2023-03-01] MEDS ORDERED: amLODIPine BESYLATE 5 MG TAB PO ONE (14:00)
--- NOTE | 2023-03-01 17:04 | Discharge Summary ---
Date of Service March 01, 2023 Admission HPI Per Admitting Provider This is a 52-year-old male with past medical history significant for malignant metastatic melanoma, recurrent; follows with [facility], on chemo and Mektovi and Braftovi, history of DVT and PE on Eliquis, vitiligo from his chemo, history of hypertension, gout, hypothyroidism, hyperlipidemia, chronic kidney disease presents with confusion and nausea and vomiting at home. The patient says he lives alone. Daughter and son lives close by. The patient was recently in the hospital, in October. At that time, he was here for GI bleed. EGD at that time showed nonbleeding gastric ulcer. Hemoglobin was stable and was restarted Eliquis on discharge and GI recommended video capsule endoscopy, had video capsule endoscopy done in first week of November and was also unremarkable. The patient is having back pain since last couple of days and also some weakness in the right leg and having some ambulatory dysfunction. Also having nausea, vomiting, today and forgetting things and that is why he came here. Initially, he received some Zosyn for possible aspiration pneumonitis and also fluids. Imaging studies showed T12 vertebral pathological fracture and also CT of the head and brain MRI showed extensive intracranial metastatic disease, and no evidence of hemorrhage. When saw the patient, the patient was alert and awake, oriented to name and place, could tell his date of , knows that he is in hospital, but could not tell exact current date. Denied any headache or any blurred visions or dizziness. Has some chronic cough. No runny nose, no sore throat. Denies any chest pain or shortness of breath, no abdominal pain. Normal bowel and bladder movements. Stools are somewhat black as he is taking iron pills as per patient. Then the patient had a seizure in the ER and he was loaded with Keppra, Ativan and Decadron was ordered another CT of the headto rule out ant bleeding.. Talked to the ICU and also talked to [facility], Dr. Pierce who was on-call,was ok with Decadron., Ativan for now and keppra and asked to monitor in the ICU and he is going to review the images with Neurosurgery and if the images show an indication for surgery they will transfer otherwise Radiation Oncology evaluation here in [facility]. Daughter notified of the episode and as per the daughter the patient will be full code. And also per daughter the patient drinks one or two beers daily and daughter does not think that he had drank in last 1 week, but she is not sure. She states patient is alcoholic from long time, and had alcohol withdrawal in the past and she wanted us to look for withdrawal symptoms. The patient currently seems to be postictal,.Hemodynamically stable. Admission Exam Per Admitting Provider GENERAL: The patient initially was alert and oriented to name, place, but difficulty current dates. Speech was normal. No facial droop. Obeys simple commands, but later the patient had seizure, currently postictal, unresponsive currently. HEENT: Pupils are equal, round and reactive to light. NECK: No JVD or neck masses. CARDIOVASCULAR: S1 and S2 heard. Regular rate and rhythm. No murmur, no gallop. RESPIRATORY SYSTEM: Normal AP diameter. No accessory muscle use. No wheezing, crackles. ABDOMEN: Soft, bowel sounds present, nontender, no distention. CENTRAL NERVOUS SYSTEM: He was alert and oriented to name, place. Obeys simple commands. Moves extremities. currently, unresponsive after seizure. Principal Diagnosis New onset seizure Pathologic fracture of T12 Metastatic melanoma Discharge Exam Constitutional WD/WN, vitals as above Respiratory normal respiratory effort, lungs clear to auscultation Cardiovascular Rate/Rhythm: regular rate and regular rhythm Vessels: normal peripheral pulses Extremities: no edema Gastrointestinal (Abdomen) Percussion/Palpation: abdomen soft; abdomen nontender Skin no rashes, warm and dry Neurologic no focal motor deficits Psychiatric A+Ox3, euthymic affect Discharge Data Allergies Allergy/AdvReac Type Severity Reaction Status Date / Time tramadol AdvReac Unknown h/o Uncoded 02/27/23 12:35 seizures Consultations 02/25/23 06:57 Consult Pharmacist Aide Routine 02/25/23 08:00 Consult Neurology Routine Consult Radiation Oncology Routine Ordered Studies Laboratory Results WBC 5.53 K/ul (4.8-10.8) 02/28/23 05:39 RBC 4.47 M/uL (4.70-6.10) L 02/28/23 05:39 Hgb 11.0 g/dl (14.0-18.0) L 02/28/23 05:39 Hct 35.1 % (42.0-52.0) L 02/28/23 05:39 MCV 78.5 fL (80.0-100.0) L 02/28/23 05:39 MCH 24.6 pg (25.0-34.0) L 02/28/23 05:39 MCHC 31.3 g/dL (32.0-36.0) L 02/28/23 05:39 RDW Std Deviation 54.9 fL (36.4-46.3) H 02/28/23 05:39 RDW Coeff of Hieu 19.4 % (11.5-14.5) H 02/28/23 05:39 Plt Count 245 K/uL (130-400) 02/28/23 05:39 MPV 10.9 fL (9.4-12.4) 02/28/23 05:39 Immature Gran % (Auto) 0.5 % 02/28/23 05:39 Neut % (Auto) 67.1 % 02/28/23 05:39 Lymph % (Auto) 23.0 % 02/28/23 05:39 Valley % (Auto) 7.6 % 02/28/23 05:39 Eos % (Auto) 1.4 % 02/28/23 05:39 Baso % (Auto) 0.4 % 02/28/23 05:39 Neut # (Auto) 3.71 K/uL (1.40-6.50) 02/28/23 05:39 Lymph # (Auto) 1.27 K/uL (1.2-3.4) 02/28/23 05:39 Valley # (Auto) 0.42 K/uL (0.11-0.59) 02/28/23 05:39 Eos # (Auto) 0.08 K/uL (0-0.50) 02/28/23 05:39 Baso # (Auto) 0.02 K/uL (0-0.2) 02/28/23 05:39 Immature Gran # (Auto) 0.03 K/uL (0.01-0.20) 02/28/23 05:39 Sodium 135 mmol/L (136-145) L 03/01/23 05:47 Potassium 4.1 mmol/L (3.5-5.1) 03/01/23 05:47 Chloride 105 mmol/L (98-107) 03/01/23 05:47 Carbon Dioxide 23 mmol/L (21-32) 03/01/23 05:47 Anion Gap 7 (3-11) 03/01/23 05:47 BUN 19 mg/dl (6-23) 03/01/23 05:47 Creatinine 1.27 mg/dl (0.6-1.4) 03/01/23 05:47 Est Cr Clr Drug Dosing 89.9 ml/min 03/01/23 05:47 Est GFR ( Amer) 74.3 ml/min 03/01/23 05:47 Est GFR (Non-Af Amer) 64.1 ml/min 03/01/23 05:47 BUN/Creatinine Ratio 15.0 (10-20) 03/01/23 05:47 Glucose 102 mg/dl (70-99(Fasting)) H 03/01/23 05:47 POC Glucose 123 mg/dl (70-99) H 02/25/23 11:29 Lactate 1.6 mmol/L (0.4-2.0) 02/25/23 07:02 Calcium 8.7 mg/dl (8.6-10.3) 03/01/23 05:47 Phosphorus 3.6 mg/dl (2.5-4.9) D 02/28/23 05:39 Magnesium 2.1 mg/dl (1.7-2.4) 02/28/23 05:39 Total Bilirubin 0.5 mg/dl (0.2-1.0) 02/24/23 22:26 Direct Bilirubin 0.1 mg/dl (0-0.2) 02/24/23 22:26 AST 15 U/L (13-39) 02/24/23 22:26 ALT 11 U/L (7-52) 02/24/23 22:26 Alkaline Phosphatase 54 U/L (34-104) 02/24/23 22:26 Troponin I High Sens 5.8 pg/ml (0-20) 02/24/23 22:26 Total Protein 8.9 gm/dl (6.0-8.3) H 02/24/23 22:26 Albumin 4.1 gm/dl (3.4-5.0) 02/24/23 22:26 Procalcitonin 0.05 ng/ml (0-0.5) 02/24/23 22:26 Urine Color Yellow 02/25/23 00:37 Urine Appearance Clear (Clear) 02/25/23 00:37 Urine pH 6.5 (4.5-7.5) 02/25/23 00:37 Ur Specific [place] 1.018 (1.000-1.030) 02/25/23 00:37 Urine Protein 1+ (Negative) H 02/25/23 00:37 Urine Glucose (UA) Negative (Negative) 02/25/23 00:37 Urine Ketones Negative (Negative) 02/25/23 00:37 Urine Blood Negative (Negative) 02/25/23 00:37 Urine Nitrite Negative (Negative) 02/25/23 00:37 Urine Bilirubin Negative (Negative) 02/25/23 00:37 Urine Urobilinogen Negative (Negative) 02/25/23 00:37 Ur Leukocyte Esterase Negative (Negative) 02/25/23 00:37 Urine WBC (Auto) 1-5 /hpf (0-5) 02/25/23 00:37 Urine RBC (Auto) 0-4 /hpf (0-4) 02/25/23 00:37 U Hyaline Cast (Auto) 1-5 /lpf (0-5) 02/25/23 00:37 U Epithel Cells (Auto) 10-20 /lpf (0-5) H 02/25/23 00:37 Urine Bacteria (Auto) Negative (Negative) 02/25/23 00:37 Nasal Screen MRSA (PCR) Negative (Negative) 02/25/23 07:00 SARS-CoV-2 (PCR) NEGATIVE (Negative) 02/24/23 Unknown Impressions Chest X-Ray 02/24/23 22:14 XR chest 1V portable CLINICAL HISTORY: ams, CA TECHNIQUE: Single frontal radiograph of the chest was obtained. Comparison: Comparison is made to chest radiograph 08/25/2022 FINDINGS: No lines and tubes are seen. Cardiomegaly is noted. Lungs are underinflated but clear. No evidence of pleural effusion or pneumothorax. IMPRESSION: No acute chest disease. ACT 112: Negative or not required by law. Electronically signed by: Ilan Gray M.D. 02/25/2023 8:[address] 02/25/23 04:56 Exam(s): CT HEAD Without Contrast EXAM: CT Head Without Intravenous Contrast CLINICAL HISTORY: Reason for exam: sz, ams, on eliquis. TECHNIQUE: Axial computed tomography images of the head/brain without intravenous contrast. CTDI is 36.3 mGy and DLP is 614.27 mGy-cm. Automated exposure control was utilized for the study. A dose lowering technique was utilized adhering to the principles of ALARA. COMPARISON: MRI brain dated mar 27 2023 FINDINGS: Brain: Redemonstrated foci of increased attenuation along the cortical jefferson matter of the bilateral frontal and parietal lobes, left greater than right. Findings may be due to known metastatic deposits for melanoma. Increased attenuation may relate to superimposed hemorrhage. This is grossly stable from prior. Areas of decreased attenuation in the deep cerebral white matter are consistent with small vessel ischemic/degenerative changes. The cerebral and cerebellar sulci are prominent consistent with brain atrophy. Ventricles: Unremarkable. No ventriculomegaly. Bones/joints: Unremarkable. No acute fracture. Soft tissues: Unremarkable. Vasculature: Atherosclerotic disease. Sinuses: Unremarkable as visualized. Mastoid air cells: Unremarkable as visualized. No mastoid effusion. Other findings: Consider MRI if there is further concern. IMPRESSION: 1. Redemonstrated foci of increased attenuation along the cortical jefferson matter of the bilateral frontal and parietal lobes, left greater than right. Findings may be due to known metastatic deposits for melanoma. Increased attenuation may relate to superimposed hemorrhage. This is grossly stable from prior. 2. Consider MRI if there is further concern. 3. Small vessel ischemic/degenerative changes. 4. Cerebral and cerebellar atrophy. Electronically signed by: Daniel Campa MD 02/25/23 06:14 AM Lumbar Spine MRI 02/25/23 22:14 Exam(s): MRI L SPINE W/WO Contrast EXAM: MR Lumbar Spine Without and With Intravenous Contrast CLINICAL HISTORY: Reason for exam: AMS, Melanoma stage 4, severe LBP cant move R leg. TECHNIQUE: Magnetic resonance images of the lumbar spine without and with intravenous contrast in multiple planes. CONTRAST: Contrast must be dictated COMPARISON: No relevant prior studies available. FINDINGS: Vertebrae: There is a pathologic fracture of the T12 vertebral body without evidence for retropulsion into the canal (image 10 series 14). Interspaces: There are scattered areas of disc desiccation. Spinal cord: Unremarkable. Normal signal. No abnormal enhancement. Soft tissues: Unremarkable. DISCS/SPINAL CANAL/NEURAL FORAMINA: L1-L2: There is loss of intervertebral disc space with a small disc bulge which is left eccentric and causes mild narrowing of the left neural foramen. L2-L3: There is loss of intervertebral disc space with ligamentum flavum infolding and a small disc bulge. No significant canal narrowing. There is mild bilateral neural foraminal narrowing. L3-L4: Unremarkable. No significant disc disease. No stenosis. L4-L5: There is loss of intervertebral disc space with a mild disc bulge. Mild bilateral neural foraminal narrowing. No canal narrowing. L5-S1: Loss of intervertebral disc space without significant canal or neural foraminal narrowing. Other findings: There are multilevel degenerative changes. IMPRESSION: Pathologic fracture of the T12 vertebral body without retropulsion into the canal. Additional multilevel degenerative changes as detailed above. Electronically signed by: Bud Chappell MD 02/25/23 02:48 AM Brain MRI 02/25/23 23:18 Exam(s): MRI HEAD W/WO Contrast EXAM: MR Head Without and With Intravenous Contrast CLINICAL HISTORY: Reason for exam: ams, melanoma w/ mets. TECHNIQUE: Magnetic resonance images of the head/brain without and with intravenous contrast in multiple planes. CONTRAST: Contrast must be dictated COMPARISON: CT from earlier the same evening. FINDINGS: Limitations: The examination is mildly limited by motion artifact. Brain: There are multiple enhancing masses throughout the parenchyma most compatible with intra-axial metastatic disease. For example, 0.8 cm left frontal lesion (image 95 series 21), 1 cm left temporal lesion (image 73 series 21). No hemorrhage. No acute infarct. Ventricles: Unremarkable. No ventriculomegaly. Bones/joints: Unremarkable. Sinuses: Unremarkable as visualized. No acute sinusitis. Mastoid air cells: Unremarkable as visualized. No mastoid effusion. Orbits: Unremarkable as visualized. Other findings: No evidence for acute hemorrhage. IMPRESSION: Extensive intracranial metastatic disease. No evidence for hemorrhage. Electronically signed by: Bud Chappell MD 02/25/23 02:41 AM Hospital Course (1) Seizure: Plan Seizure: New onset seizure with new metastatic disease to brain and new pathologic fracture of T12. Radiation oncology consulted for treatment -->s tarted palliative whole brain radiation and radiation to T12 on 02/28 EEG abnormal Neuro consulted, started on Keppra 750 mg twice daily Case was discussed with patient's primary oncologist at [facility], Dr. Patterson --recommends dexamethasone 4 mg twice daily. Patient previously on Eliquis for history of DVT, this was discontinued to prevent intracranial bleeding in the setting of brain metastases. Celebrex also discontinued. Follow-up with primary oncologist within 1 week Follow-up appointment made with 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 Currently on oral chemotherapy Acute metabolic encephalopathy: 2/2 brain mets and seizure activity followed by [facility]. Resolved and now back to baseline. Pathologic fracture of thoracic vertebrae: T12 pathologic fracture Started radiation treatments on 02/28 Prescription for oxycodone given at discharge VICKY: Baseline creatinine ~ 1.0-1.2 Creatinine peaked at 1.5, received IVF with improvement Recheck BMP within 1 week with restarting benazepril Hypertension: As per daughter and patient -- was treating BP with PRN antihypertensives, and report intermittent syncope with medication use. Home antihypertensive (amlodipine/benazepril) initially held. BP started to increase and amlodipine 5 mg daily was restarted. Given persistent elevation, metoprolol tartrate 12.5 mg BID was initiated in favor of benazepril given mild VICKY. On the day of discharge, patient's BP remained elevated. Received an additional 5 mg amlodipine and 20 mg enalapril. BP improved before discharge. Will discharge on increased dose amlodipine/benazepril 5 mg / 20 mg and additional amlodipine 2.5 mg taken at bedtime History of DVT Eliquis discontinued to prevent intracranial hemorrhage in the setting of brain metastases. Chronic steroid use: Takes chronic prednisone because when he would get treatment infusions for melanoma, he would become very swollen. The infusions were stopped approx 6 months ago but he remains on prednisone 10mg PO daily. Decadron taking the place of this as above. Hypothyroidism: Chronic, well controlled per TSH Nov 16 in outpatient record review. Cont home levothyroxine. Gout: Cont colchicine per home regimen. Also takes allopurinol -unsure if this is for tumor lysis prevention or gout but will continue. Total Time Total Time Spent Total Time Spent (In Minutes): 45 Discharge Plan Discharge Items Patient Disposition: Home - Home Health Services Reason For Visit: Confusion Discharge Diagnosis: Seizure Condition on Discharge: Fair Activity: Resume your previous activity Non-emergency contact: Primary Care Provider, Neurologist and Oncologist Call non-emergency contact if: you have any medication questions, your symptoms worsen, your pain is not controlled and you have a fever Follow-up/Referrals: [facility]rology [Provider Group] (Date & Time 03/14/2023 11:20 AM Provider Mena Frazier PA-C Department Neurology [facility] ) Miguel Patterson MD [Outside Practitioners] - (Follow up in one week) Loren Broderick MD [Primary Care Provider] - (Date & Time 03/05/2023 10:20 AM Provider Loren Broderick MD Department [facility] ) Diet: Regular Addtl Attending Provider Instructions: You came to the hospital for evaluation of confusion and while in the ED had a seizure. Brain MRI showed that your cancer has spread to the brain, likely causing the seizure. Due to back pain, an MRI of the back was preformed showing a fracture at T12 caused by the cancer. New Medications: Keppra 750mg twice daily Dexamethasone (Decadron) 4 mg twice daily Increased dose amlodipine/benazepril 5 mg / 20 mg. Add amlodipine 2.5 mg in the evening. -- start these medications tomorrow, 03/02 Oxycodone 5 to 10 mg every 6 hours as needed for pain Oxycodone can cause constipation, use a stool softener twice daily and MiraLAX as needed. Due to risk of brain bleeding, stop taking Eliquis (apixaban) and Celebrex Stop taking Prednisone -- you were started on Decadron instead. You started radiation treatments to your brain and back while admitted. Treatments need to continue after discharge. You have been provided with radiation treatment schedule. Follow-up with your primary oncologist, Dr. Patterson -- appt has been made. You will also need to follow-up with neurology for management of seizure. Appointment has been made with [facility] neurology at [facility]. Follow up with your PCP has also been scheduled. Do not drive for at least the next 6 months --form has been submitted to [employer]. It was a pleasure taking care of you. If you need to reach a member of the [facility] hospitalist team at [facility], please call [phone]. JAIRO Carias Pending Studies at Discharge: No Stand-Alone Forms: [facility], Smoking Cessation Medications and DC Order Prescriptions: New acetaminophen [Tylenol Extra Strength] 500 mg Tablet 1,000 mg PO Q8H Qty: 1 0RF levetiracetam [Keppra] 250 mg Tablet 750 mg PO BID@06,1800 30 Days Qty: 180 0RF oxycodone 5 mg Tablet 5 - 10 mg PO Q6H PRN (Reason: pain) Qty: 20 0RF polyethylene glycol 3350 [Miralax] 17 gram Powder In Packet 17 g PO DAILY PRN (Reason: constipation) Qty: 1 0RF dexamethasone 4 mg Tablet 4 mg PO BID Qty: 60 0RF docusate sodium 100 mg Capsule 100 mg PO BID Qty: 1 0RF ondansetron HCl 4 mg tablet 4 mg PO Q8H PRN (Reason: nausea and vomiting) 4 Days Qty: 14 0RF amlodipine-benazepril 5-20 mg capsule 1 cap PO DAILY Qty: 30 0RF amlodipine 2.5 mg tablet 2.5 mg PO HS Qty: 30 0RF Continued levothyroxine 200 mcg tablet 200 mcg PO DAILYBB Braftovi 75 mg Capsule 450 mg PO QAM Mektovi 15 mg Tablet 45 mg PO Q12H pantoprazole 40 mg tablet,delayed release (DR/EC) 40 mg PO BID ferrous sulfate 325 mg (65 mg iron) tablet,delayed release (DR/EC) 325 mg PO BID allopurinol 300 mg tablet 300 mg PO QAM colchicine 0.6 mg tablet 0.6 mg PO AMPM cyclobenzaprine 10 mg tablet 10 mg PO TID PRN (Reason: Spasms) Discontinued prednisone 10 mg Tablet 10 mg PO DAILY Eliquis 5 mg Tablet 5 mg PO BID amlodipine-benazepril 5-10 mg capsule 1 cap PO QAM PRN (Reason: Hypertension) celecoxib 100 mg capsule 100 mg PO BID PRN (Reason: Pain) Discharge Orders: Discharge Order (Routine); Ordered 03/01/23 Ordered By: Zaida Ochoa Admission Data Admit Date/Time: 02/25/23 05:58 Attending Provider: Sylvain Aguirre Admit Provider: Peyman Baird Primary Care Provider: Loren Broderick Other Providers: [facility] ; [facility] ; Jose A Cole ; Jose A Simmons ; Mayank Patel ; Tri Tan ; Marie Martínez ; Mena Frazier ; Saw Perez ; Mena Almodovar ; Sha Gonzalez ; Eros Villela ; Judit Kirkpatrick ; Shannon Oropeza ; Saw Brito ; Chang Enrique ; Charlee Gustafson ; Kristine Feldman ; Heath Malone ; Patti Burden Other Interventions: Discharge Summary Assessment (RN) Last Done: 03/01/23 16:20 Supervising Physician Co-Signing Physician Notes Patient seen and examined at bedside as a follow-up of new onset seizure on the background of metastatic disease to the brain and new pathologic fracture of T12. Patient with no further seizure episodes. Patient was evaluated by neurology and started on Keppra 750 Mg twice daily. Patient reports pain under control, patient advised to continue to take [id number] laxatives while on pain medication. Patient to follow-up with PCP/neurology/oncology closely upon discharge. VICKY component has improved and since his blood pressure is high, increasing his home amlodipine benazepril combination and adding a small dose of amlodipine in the evening. Eliquis has been discontinued as a precaution for intracranial hemorrhage given metastasis to brain, patient made aware and requested to closely follow-up with oncology regarding further recommendation. Patient voiced understanding. Patient's chronic prednisone was changed to Decadron with recommendations from patient's oncologist. On examination, patient was sitting up in bed, on room air, heart/lung/abdomen examination WNL. Rest of the examination as above. I have seen and examined the patient and have discussed the case with the provider above. I agree with the assessment and plan as stated. Home Health Attestation I certify that this patient is under my care and that I, or a physicians resident care assistant working with me, had a face to-face encounter that meets the home health [id number] encounter requirements with this patient. The encounter with the patient was in whole, or in part, for the following medical condition, which is the primary reason for home health care (list medical condition): malignant melanoma with brain mets, seizure, T12 fracture I certify that, based on my findings, the following services are medically necessary home health services: My clinical findings support the need for the above services because: PT Assessment for Endurance / Balance / Strength PT Eval for Safety and Mobility PT Eval for Safety, Gait Training, Assistive Devices PT Gait and Balance Training, Strengthening and Safety Skilled Nsg Assessment Skilled Nsg Assess and Instruct on Diet Skilled Nsg Instruction New Medications Skilled Nsg Assess Pt Illness, Disease and Sx Monitoring S/S to Report to Provider Teach on Disease Management and Interventions Further, I certify that my clinical findings support that this patient is homebound (i.e. absences from home require considerable and taxing effort and are for medical reasons or [facility] services or infrequently or of short duration when for other reasons) because: Transportation Assistance/Unable to Leave Home Unassisted Certification for Home Health Services: Based on the above findings, I certify that this patient is confined to the home and needs intermittent residential care, physical therapy and/or speech therapy or continues to need occupational therapy. The patient is under my care, and I have initiated the establishment of the plan of care. This patient will be followed by a physician who will periodically review the plan of care.
== END 2023-03-01 17:12 | disposition home health service (06) | DRG 54 ==
LOC: ED 21:59 → 1E 02-25 05:58 → SUATTDRO 02-25 05:58 → 1E 02-25 06:08 → 3N 02-27 14:45